=== PATIENT | female | born 1940 | race Caucasian/White ===

== ENCOUNTER 2016-05-22 20:39 | Emergency (ER) | payer MEDICARE, BC ==
[2016-05-22] MEDS ORDERED: Sodium Chloride 0.9% 1,000 ML IV SCH (21:15)
[2016-05-22 22:39] VITALS: BP 143/70
--- NOTE | 2016-05-22 23:26 | EDM.PDOC ---
ED HPI GENERAL MEDICAL PROBLEM - General Chief Complaint: Gastrointestinal Problem Stated Complaint: FLU Time Seen by Provider: 05/22/16 21:05 Source of Information: Reports: Patient History Limitations: Reports: No limitations - History of Present Illness INITIAL COMMENTS - FREE TEXT/NARRATIVE: History of present illness: [75-year-old female is presenting with acute onset of vertigo last 24 hours. It seems that when she tips her head back as when it's at its worst. She is still nauseated with it but no vomiting. She does have a little bit of a headache with this as well. She's had this before and apparently has instructions in exercises at home but she supposed to do to help prevent this from happening. She's had no fevers or chills no visual disturbances no cough or cold symptoms no ear symptoms.] Review of systems: As per history of present illness and below otherwise all systems reviewed and negative. Past medical history: As per history of present illness and as reviewed below otherwise noncontributory. Surgical history: As per history of present illness and as reviewed below otherwise noncontributory. Social history: No reported history of drug or alcohol abuse. Family history: As per history of present illness and as reviewed below otherwise noncontributory. Physical exam: HEENT: Atraumatic, normocephalic, pupils reactive, negative for conjunctival pallor or scleral icterus, mucous membranes moist, throat clear, neck supple, nontender, trachea midline. TMs are clear Lungs: Clear to auscultation, breath sounds equal bilaterally, chest nontender. Heart: S1S2, regular, negative for clicks, rubs, or JVD. Abdomen: Soft, nondistended, nontender. Negative for masses or hepatosplenomegaly. Negative for costovertebral tenderness. Pelvis: Stable nontender. Genitourinary: Deferred. Rectal: Deferred. Extremities: Atraumatic, negative for cords or calf pain. Neurovascular unremarkable. Neuro: Awake, alert, oriented. Cranial nerves II through XII unremarkable. Cerebellum unremarkable. Motor and sensory unremarkable throughout. Exam nonfocal. Diagnostics: [CBC complete metabolic panel head CT d-dimer troponin and EKG were all done and were nondiagnostic head CT was negative.] Therapeutics: [She received IV fluids and I gave her Valium 5 mg IV as well and she did well with this. We were able to get her up and ambulate her in the room with minimal assistance and she stated that she was feeling better and wanted to go home.] Impression: [Benign positional vertigo] Plan: [She will follow up here as needed and she will try her exercises at home for dislodging the precipitants] Definitive disposition and diagnosis as appropriate pending reevaluation and review of above. - Related Data Allergies Allergy/AdvReac Type Severity Reaction Status Date / Time acetaminophen Allergy Nausea and Verified 12/08/12 13:46 [From Darvocet-N 100] Vomiting erythromycin base Allergy Rash Verified 12/08/12 13:46 [Erythromycin Base] naproxen Allergy Rash Verified 12/08/12 13:46 oxycodone [Oxycodone] Allergy Nausea and Verified 12/08/12 13:46 Vomiting propoxyphene napsylate Allergy Nausea and Verified 12/08/12 13:46 [From Darvocet-N 100] Vomiting Home Meds: Home Meds *[id number] Vitamin D 200 1 tab PO DAILY 12/08/12 [History] Alendronate Sodium [Alendronate] 70 mg PO Q7D 12/08/12 [History] Aspirin [Adult Low Dose Aspirin EC] 81 mg PO DAILY 12/08/12 [History] Fluticasone Propionate [Flonase] 2 spray INH DAILY 12/08/12 [History] Folic Acid 0.4 mg PO DAILY 12/08/12 [History] Metoprolol Tartrate [Lopressor] 50 mg PO BID 12/08/12 [History] Multivitamin [Multivitamins] 1 each PO DAILY 12/08/12 [History] Past Medical History HEENT History: Reports: Impaired vision 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: Reports: Hypertension 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: Musculoskeletal History: Reports: Arthritis Neurological History: Reports: Migraines, TIA, Vertigo - Infectious Disease History Infectious Disease History: Reports: Chicken pox, Measles, Mumps - Past Surgical History GI Surgical History: Reports: Cholecystectomy Social & Family History - Tobacco Use Smoking Status *Q: Never Smoker Second Hand Smoke Exposure: No - Caffeine Use Caffeine Use: Reports: Tea - Alcohol Use Days Per Week of Alcohol Use: 0 - Recreational Drug Use Recreational Drug Use: No ED ROS GENERAL - Review of Systems Review Of Systems: ROS reveals no pertinent complaints other than HPI. ED EXAM, GENERAL - Physical Exam Exam: See Below Course - Vital Signs Last Recorded V/S: Last Vital Signs Temp 35.9 C 05/22/16 21:02 Pulse 65 05/22/16 22:34 Resp 20 05/22/16 22:34 BP 143/70 H 05/22/16 22:34 Pulse Ox 92 L 05/22/16 22:34 - Orders/Labs/Meds Orders: Active Orders 24 hr Category Date Time Status EKG Documentation Completion [RC] ASDIRECTED Care 05/22/16 21:14 Active Head wo Cont [CT] Stat Exams 05/22/16 21:15 Taken UA W/MICROSCOPIC [URIN] Stat Lab 05/22/16 21:13 Uncollected Sodium Chloride 0.9% [Normal Saline] 1,000 ml Med 05/22/16 21:15 Active IV ASDIRECTED EKG 12 Lead [EK] Stat Ther 05/22/16 21:13 Ordered Medication Orders Sodium Chloride (Normal Saline) 1,000 mls @ 999 mls/hr IV ASDIRECTED CONRADO Last Admin: 05/22/16 21:41 Dose: 250 mls/hr Labs: Laboratory Tests 05/22/16 05/22/16 05/22/16 Range/Units 21:13 21:13 21:13 WBC 9.5 (4.5-11.0) K/uL RBC 4.68 (3.30-5.50) M/uL Hgb 13.7 (12.0-15.0) g/dL Hct 41.3 (36.0-48.0) % MCV 88 (80-98) fL MCH 29 (27-31) pg MCHC 33 (32-36) % Plt Count 222 (150-400) K/uL Neut % (Auto) 82 H (36-66) % Lymph % (Auto) 12 L (24-44) % [place] % (Auto) 5 (2-6) % Eos % (Auto) 0 L (2-4) % Baso % (Auto) 0 (0-1) % D-Dimer, Quantitative < 100 (0.0-400.0) ng/mL Sodium 142 (140-148) mmol/L Potassium 4.1 (3.6-5.2) mmol/L Chloride 104 (100-108) mmol/L Carbon Dioxide 29 (21-32) mmol/L Anion Gap 9.3 (5.0-14.0) mmol/L BUN 23 H (7-18) mg/dL Creatinine 1.1 H (0.6-1.0) mg/dL Est Cr Clr Drug Dosing 34.41 mL/min Estimated GFR (MDRD) 48 L (>60) Glucose 115 H (74-106) mg/dL Calcium 9.4 (8.5-10.1) mg/dL Total Bilirubin 0.4 (0.2-1.0) mg/dL AST 25 (15-37) U/L ALT 28 (12-78) U/L Alkaline Phosphatase 88 (46-116) U/L Troponin I < 0.017 (0.000-0.056) ng/mL Total Protein 7.3 (6.4-8.2) g/dL Albumin 3.6 (3.4-5.0) g/dL Globulin 3.7 H (2.3-3.5) g/dL Albumin/Globulin Ratio 1.0 L (1.2-2.2) TSH, Ultra Sensitive 1.967 (0.358-3.740) uIU/mL Meds: Medications Generic Name Dose Route Start Last Admin Trade Name Freq PRN Reason Stop Dose Admin Sodium Chloride 1,000 mls @ 999 mls/hr 05/22/16 21:15 05/22/16 21:41 Normal Saline IV 250 mls/hr ASDIRECTED CONRADO Administration Discontinued Medications Generic Name Dose Route Start Last Admin Trade Name Freq PRN Reason Stop Dose Admin Diazepam 5 mg 05/22/16 21:43 05/22/16 22:04 Valium IVPUSH 05/22/16 21:44 5 mg ONETIME ONE Administration Departure - Departure Time of Disposition: 23:25 Disposition: Home, Self-Care 01 Condition: fair Clinical Impression: Other peripheral vertigo, unspecified ear Forms: ED Department Discharge Additional Instructions: Please try the exercises that were given to you for her dealing with this problem and if you are not improving follow up with your primary care doctor - My Orders Last 24 Hours: My Active Orders 05/22/16 21:13 UA W/MICROSCOPIC [URIN] Stat EKG 12 Lead [EK] Stat 05/22/16 21:14 EKG Documentation Completion [RC] ASDIRECTED 05/22/16 21:15 Head wo Cont [CT] Stat Sodium Chloride 0.9% [Normal Saline] 1,000 ml IV ASDIRECTED - Assessment/Plan Last 24 Hours: My Active Orders 05/22/16 21:13 UA W/MICROSCOPIC [URIN] Stat EKG 12 Lead [EK] Stat 05/22/16 21:14 EKG Documentation Completion [RC] ASDIRECTED 05/22/16 21:15 Head wo Cont [CT] Stat Sodium Chloride 0.9% [Normal Saline] 1,000 ml IV ASDIRECTED
== END 2016-05-22 23:55 | disposition home or self-care (01) ==
LOC: JP.ED 20:39
DX: H81.399 Other peripheral vertigo, unspecified ear (principal); I10 Essential (primary) hypertension; Z86.73 Personal history of transient ischemic attack (TIA), and cerebral infarction without residual deficits; Z90.49 Acquired absence of other specified parts of digestive tract; Z79.82 Long term (current) use of aspirin; Z79.899 Other long term (current) drug therapy; Z88.1 Allergy status to other antibiotic agents; Z88.5 Allergy status to narcotic agent; Z88.8 Allergy status to other drugs, medicaments and biological substances
CPT/HCPCS: 36415; 70450; 80053; 81001; 84443; 84484; 85025; 85379; 93005; 96361; 96374; 99284; J3360; J7040; 93010

== ENCOUNTER 2020-05-19 13:21 | Inpatient (IN) | payer MEDICARE, BC ==
[2020-05-19] MEDS ORDERED: Ondansetron 4 MG/2 ML SDV IVPUSH ONE (15:27)
[2020-05-19] MEDS ORDERED: fentaNYL 100 MCG/2 ML SDV IVPUSH ONE (15:27)
[2020-05-19] MEDS ORDERED: Lactated Ringers 1,000 ML IV SCH (15:30)
--- NOTE | 2020-05-19 15:32 | EDM.PDOC ---
ED HPI GENERAL MEDICAL PROBLEM - General Chief Complaint: General Stated Complaint: GENERAL UNWELL FEELING, EXCESSIVE THIRST Time Seen by Provider: 05/19/20 15:11 Source of Information: Reports: Patient, RN Notes Reviewed History Limitations: Reports: No Limitations - History of Present Illness INITIAL COMMENTS - FREE TEXT/NARRATIVE: 79-year-old female presents emergency department a complaint of abdominal pain she states been ill for the last couple of days progressively getting worse has chills she denies any fevers does have some nausea vomiting as well as diarrhea complains of abdominal bloating Abdomen Pain Score (Numeric/FACES): 6 - Related Data Allergies Allergy/AdvReac Type Severity Reaction Status Date / Time acetaminophen Allergy Nausea and Verified 05/19/20 14:07 [From Darvocet-N 100] Vomiting erythromycin base Allergy Rash Verified 05/19/20 14:07 [Erythromycin Base] naproxen Allergy Rash Verified 05/19/20 14:07 oxycodone [Oxycodone] Allergy Nausea and Verified 05/19/20 14:07 Vomiting propoxyphene napsylate Allergy Nausea and Verified 05/19/20 14:07 [From Darvocet-N 100] Vomiting Home Meds: Home Meds *[id number] Vitamin D 200 1 tab PO DAILY 12/08/12 [History] Alendronate Sodium [Alendronate] 70 mg PO Q7D 12/08/12 [History] Aspirin [Adult Low Dose Aspirin EC] 81 mg PO DAILY 12/08/12 [History] Fluticasone Propionate [Flonase] 2 spray INH DAILY 12/08/12 [History] Folic Acid 0.4 mg PO DAILY 12/08/12 [History] Metoprolol Tartrate [Lopressor] 50 mg PO BID 12/08/12 [History] Multivitamin [Multivitamins] 1 each PO DAILY 12/08/12 [History] Past Medical History HEENT History: Reports: Impaired Vision 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: Reports: Hypertension 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 Denies: Fever HEENT: Reports: No Symptoms Respiratory: Reports: No Symptoms Cardiovascular: Reports: No Symptoms GI/Abdominal: Reports: Abdominal Pain, Diarrhea, Nausea, Vomiting : Reports: No Symptoms ED EXAM, GENERAL - Physical Exam Exam: See Below Exam Limited By: No Limitations General Appearance: Alert, Mild Distress Respiratory/Chest: No Respiratory Distress, Lungs Clear, Normal Breath Sounds, No Accessory Muscle Use, Chest Non-Tender Cardiovascular: Regular Rate, Rhythm, No Murmur GI/Abdominal: Soft, Tender (Generalized tenderness), Abnormal Bowel Sounds Course - Vital Signs Last Recorded V/S: Last Vital Signs Temp 100.0 F 05/19/20 16:03 Pulse 97 05/19/20 17:00 Resp 20 05/19/20 17:00 BP 157/49 H 05/19/20 17:00 Pulse Ox 96 05/19/20 17:00 - Orders/Labs/Meds Orders: Active Orders 24 hr Category Date Time Status Blood Pressure Mgt: Sepsis [RC] Q15MX2 Care 05/19/20 15:18 Active Chest 1V Frontal [CR] Stat Exams 05/19/20 15:16 Taken CULTURE BLOOD [BC] Urgent Lab 05/19/20 15:25 Received CULTURE BLOOD [BC] Urgent Lab 05/19/20 15:30 Received CULTURE STOOL + SHIGATOX [RM] Stat Lab 05/19/20 18:05 Ordered REFLEX LACTIC ACID YES OR NO [CHEM] Routine Lab 05/19/20 16:01 Received WBC, STOOL [OP] Stat Lab 05/19/20 18:05 Ordered Lactated Ringers [Ringers, Lactated] 1,000 ml Med 05/19/20 15:30 Active IV ASDIRECTED Piperacillin/Tazobactam [Zosyn] 4.5 gm Med 05/19/20 15:30 Active Sodium Chloride 0.9% [Normal Saline] 100 ml IV Q6H Blood Culture x2 Reflex Set [OM.PC] Urgent Oth 05/19/20 15:16 Ordered Severe Sepsis Onset Time [OM.PC] Stat Oth 05/19/20 15:16 Ordered Medication Orders Lactated Ringer's (Ringers, Lactated) 1,000 mls @ 999 mls/hr IV ASDIRECTED CONRADO Last Admin: 05/19/20 15:41 Dose: 999 mls/hr Documented by: PREILOR Piperacillin Sod/Tazobactam (Sod 4.5 gm/ Sodium Chloride) 100 mls @ 100 mls/hr IV Q6H [facility] Last Admin: 05/19/20 15:42 Dose: 100 mls/hr Documented by: PREILOR Labs: Laboratory Tests 05/19/20 05/19/20 05/19/20 Range/Units 15:16 15:19 15:33 WBC 18.4 H (4.5-11.0) K/uL RBC 5.04 (3.30-5.50) M/uL Hgb 14.5 (12.0-15.0) g/dL Hct 44.6 (36.0-48.0) % MCV 89 (80-98) fL MCH 29 (27-31) pg MCHC 33 (32-36) % Plt Count 207 (150-400) K/uL Neut % (Auto) 90 H (36-66) % Lymph % (Auto) 2 L (24-44) % [place] % (Auto) 8 H (2-6) % Eos % (Auto) 0 L (2-4) % Baso % (Auto) 0 (0-1) % Sodium 139 L (140-148) mmol/L Potassium 4.0 (3.6-5.2) mmol/L Chloride 99 L (100-108) mmol/L Carbon Dioxide 27 (21-32) mmol/L Anion Gap 17.0 H (5.0-14.0) mmol/L BUN 20 H (7-18) mg/dL Creatinine 1.2 H (0.6-1.0) mg/dL Est Cr Clr Drug Dosing 30.93 mL/min Estimated GFR (MDRD) 43 L (>60) Glucose 108 H (74-106) mg/dL Lactic Acid (0.4-2.0) mmol/L Calcium 9.2 (8.5-10.1) mg/dL Total Bilirubin 0.7 D (0.2-1.0) mg/dL AST 24 (15-37) U/L ALT 25 (12-78) U/L Alkaline Phosphatase 98 (46-116) U/L Troponin I < 0.017 (0.000-0.056) ng/mL C-Reactive Protein 1.62 H (0.0-0.3) mg/dL Total Protein 7.4 (6.4-8.2) g/dL Albumin 3.7 (3.4-5.0) g/dL Globulin 3.7 H (2.3-3.5) g/dL Albumin/Globulin Ratio 1.0 L (1.2-2.2) Lipase 57 L (73-393) U/L Procalcitonin ng/mL Urine Color (YELLOW) Urine Appearance (CLEAR) Urine pH (5.0-8.0) Ur Specific [place] (1.008-1.030) Urine Protein (NEGATIVE) mg/dL Urine Glucose (UA) (NEGATIVE) mg/dL Urine Ketones (NEGATIVE) mg/dL Urine Occult Blood (NEGATIVE) Urine Nitrite (NEGATIVE) Urine Bilirubin (NEGATIVE) Urine Urobilinogen (0.2-1.0) EU/dL Ur Leukocyte Esterase (NEGATIVE) Urine RBC (0-5) Urine WBC (0-5) Ur Epithelial Cells Amorphous Sediment Urine Bacteria Urine Mucus Influenza Type A RNA Negative (NEGATIVE) RSV RNA (INAAT) Negative (NEGATIVE) Influenza Type B RNA Negative (NEGATIVE) SARS-CoV-2 RNA (TONY) Negative (NEGATIVE) 05/19/20 05/19/20 05/19/20 Range/Units 15:33 16:07 17:37 WBC (4.5-11.0) K/uL RBC (3.30-5.50) M/uL Hgb (12.0-15.0) g/dL Hct (36.0-48.0) % MCV (80-98) fL MCH (27-31) pg MCHC (32-36) % Plt Count (150-400) K/uL Neut % (Auto) (36-66) % Lymph % (Auto) (24-44) % [place] % (Auto) (2-6) % Eos % (Auto) (2-4) % Baso % (Auto) (0-1) % Sodium (140-148) mmol/L Potassium (3.6-5.2) mmol/L Chloride (100-108) mmol/L Carbon Dioxide (21-32) mmol/L Anion Gap (5.0-14.0) mmol/L BUN (7-18) mg/dL Creatinine (0.6-1.0) mg/dL Est Cr Clr Drug Dosing mL/min Estimated GFR (MDRD) (>60) Glucose (74-106) mg/dL Lactic Acid 2.2 H (0.4-2.0) mmol/L Calcium (8.5-10.1) mg/dL Total Bilirubin (0.2-1.0) mg/dL AST (15-37) U/L ALT (12-78) U/L Alkaline Phosphatase (46-116) U/L Troponin I (0.000-0.056) ng/mL C-Reactive Protein (0.0-0.3) mg/dL Total Protein (6.4-8.2) g/dL Albumin (3.4-5.0) g/dL Globulin (2.3-3.5) g/dL Albumin/Globulin Ratio (1.2-2.2) Lipase (73-393) U/L Procalcitonin 0.20 ng/mL Urine Color Yellow (YELLOW) Urine Appearance Clear (CLEAR) Urine pH 8.5 H (5.0-8.0) Ur Specific [place] 1.020 (1.008-1.030) Urine Protein Negative (NEGATIVE) mg/dL Urine Glucose (UA) Negative (NEGATIVE) mg/dL Urine Ketones Negative (NEGATIVE) mg/dL Urine Occult Blood Moderate H (NEGATIVE) Urine Nitrite Negative (NEGATIVE) Urine Bilirubin Negative (NEGATIVE) Urine Urobilinogen 0.2 (0.2-1.0) EU/dL Ur Leukocyte Esterase Negative (NEGATIVE) Urine RBC 20-30 H (0-5) Urine WBC 0-5 (0-5) Ur Epithelial Cells Rare Amorphous Sediment Not seen Urine Bacteria Few Urine Mucus Not seen Influenza Type A RNA (NEGATIVE) RSV RNA (INAAT) (NEGATIVE) Influenza Type B RNA (NEGATIVE) SARS-CoV-2 RNA (TONY) (NEGATIVE) Meds: Medications Generic Name Dose Route Start Last Admin Trade Name Freq PRN Reason Stop Dose Admin Lactated Ringer's 1,000 mls @ 999 mls/hr 05/19/20 15:30 05/19/20 15:41 Ringers, Lactated IV 999 mls/hr ASDIRECTED CONRADO Administration Piperacillin Sod/Tazobactam 100 mls @ 100 mls/hr 05/19/20 15:30 05/19/20 15:42 Sod 4.5 gm/ Sodium Chloride IV 100 mls/hr Q6H CONRADO Administration Discontinued Medications Generic Name Dose Route Start Last Admin Trade Name Gareth PRN Reason Stop Dose Admin Fentanyl 50 mcg 05/19/20 15:27 05/19/20 15:47 Fentanyl 100 Mcg/2 Ml Sdv IVPUSH 05/19/20 15:28 50 mcg ONETIME ONE Administration Lorazepam 0.5 mg 05/19/20 17:15 05/19/20 17:26 Lorazepam 2 Mg/Ml Sdv IVPUSH 05/19/20 17:16 0.5 mg ONETIME ONE Administration Ondansetron HCl 4 mg 05/19/20 15:27 05/19/20 15:47 Ondansetron 4 Mg/2 Ml Sdv IVPUSH 05/19/20 15:28 4 mg ONETIME ONE Administration Departure - Departure Time of Disposition: 18:13 Disposition: Admitted As Inpatient 65 Condition: Fair Clinical Impression: SIRS (systemic inflammatory response syndrome) Diarrhea Qualifiers: Diarrhea type: presumed infectious Qualified Code(s): R19.7 - Diarrhea, unspecified - Discharge Information Referrals: Ga Allison MD [Primary Care Provider] - Forms: ED Department Discharge Sepsis Event Note (ED) - Evaluation Sepsis Screening Result: Possible Sepsis Risk - Focused Exam Vital Signs: Vital Signs Temp Pulse Resp BP Pulse Ox 05/19/20 17:00 97 20 157/49 H 96 05/19/20 16:03 100.0 F 87 18 135/47 L 97 05/19/20 15:00 101.2 F H 87 20 160/60 H 95 05/19/20 14:10 96.0 F L 74 24 H 154/56 H 96 05/19/20 14:04 96.0 F L 74 24 H 154/56 H 96 - My Orders Last 24 Hours: My Active Orders 05/19/20 15:16 Chest 1V Frontal [CR] Stat Blood Culture x2 Reflex Set [OM.PC] Urgent Severe Sepsis Onset Time [OM.PC] Stat 05/19/20 15:18 Blood Pressure Mgt: Sepsis [RC] Q15MX2 05/19/20 15:25 CULTURE BLOOD [BC] Urgent 05/19/20 15:30 CULTURE BLOOD [BC] Urgent Lactated Ringers [Ringers, Lactated] 1,000 ml IV ASDIRECTED Piperacillin/Tazobactam [Zosyn] 4.5 gm Sodium Chloride 0.9% [Normal Saline] 100 ml IV Q6H 05/19/20 16:01 REFLEX LACTIC ACID YES OR NO [CHEM] Routine 05/19/20 18:05 CULTURE STOOL + SHIGATOX [RM] Stat WBC, STOOL [OP] Stat - Assessment/Plan Last 24 Hours: My Active Orders 05/19/20 15:16 Chest 1V Frontal [CR] Stat Blood Culture x2 Reflex Set [OM.PC] Urgent Severe Sepsis Onset Time [OM.PC] Stat 05/19/20 15:18 Blood Pressure Mgt: Sepsis [RC] Q15MX2 05/19/20 15:25 CULTURE BLOOD [BC] Urgent 05/19/20 15:30 CULTURE BLOOD [BC] Urgent Lactated Ringers [Ringers, Lactated] 1,000 ml IV ASDIRECTED Piperacillin/Tazobactam [Zosyn] 4.5 gm Sodium Chloride 0.9% [Normal Saline] 100 ml IV Q6H 05/19/20 16:01 REFLEX LACTIC ACID YES OR NO [CHEM] Routine 05/19/20 18:05 CULTURE STOOL + SHIGATOX [RM] Stat WBC, STOOL [OP] Stat Plan: Assessment Acuity = acute Site and laterality = concern for sepsis unidentified source Etiology = possibly related to diarrhea and an enteritis Manifestations = chills, rigors Location of injury = Home Lab values = WBC elevated 18.9 consistent leukocytosis creatinine elevated 1.2 consistent with acute renal failure stage G3 B lactic acid slightly elevated 2.2 consistent with lactic acidosis troponin is negative CRP elevated 1.62 procalcitonin normal 0.2 urinalysis unremarkable Covid was negative Plan Call discussed case hospitalist on-call at 1800 kindly agreed to come evaluate patient emergency department for admission This note was dictated using [employer] voice recognition software please call with any questions on syntax or grammar.
[2020-05-19] MEDS: Piperacillin/Tazobactam 4.5 GM in Sodium Chloride 0.9% 100 ML IV SCH ×2 (15:42→21:32)
[2020-05-19 16:17] LABS: CORONAVIRUS COVID-19 NAA NEGATIVE (NEGATIVE)
--- NOTE | 2020-05-19 16:56 | CRLCT ---
Indication: Abdominal pain. Distention. Technique: Multiple contiguous axial images were obtained from the lung bases through the symphysis pubis without intravenous contrast enhancement. Please note that all CT scans at this facility use dose modulation, iterative reconstruction, and/or weight-based dosing when appropriate to reduce radiation dose to as low as reasonably achievable. Comparison: None Findings: Bibasilar atelectasis is identified. The heart is normal in size. A small pericardial effusion is identified. The unenhanced liver, spleen, pancreas, adrenals, and kidneys are normal. No intrahepatic biliary ductal dilatation is identified. No hydronephrosis is identified. Postsurgical changes of cholecystectomy are identified. In the pelvis, the urinary bladder is normal. No uterus is identified. The small and large bowel are normal in caliber. Mild colonic diverticulosis is identified. In the left lower quadrant, a peripherally calcified nodule is identified. The exact etiology of this is uncertain, but is felt to be benign. This is best seen on image number 101 and measures approximately 1.2 cm in size. The aorta is normal in caliber. No free air or free fluid is identified within the abdomen or pelvis. A trace fat containing umbilical hernia is identified. Osteopenia is identified. Vacuum disc phenomenon is identified at L4-5 and L5-S1. Compression of L2 is identified. Facet joint arthropathy is identified. Impression: No acute findings of the abdomen or pelvis. Please note that all CT scans at this facility use dose modulation, iterative reconstruction, and/or weight-based dosing when appropriate to reduce radiation dose to as low as reasonably achievable. Dictated by Zita Wesley MD @ May 19 2020 4:44PM Signed by Dr. Zita Wesley @ May 19 2020 4:54PM
[2020-05-19] MEDS ORDERED: LORazepam 2 MG/ML SDV IVPUSH ONE (17:15)
[2020-05-19] MEDS ORDERED: HYDROmorphone 1 MG/ML Syringe IVPUSH ONE (18:35)
[2020-05-19] MEDS ORDERED: Acetaminophen 1,000 MG in Premix Bag 1 BAG IV ONE (18:44)
--- NOTE | 2020-05-19 19:07 | PCM.HP.2 ---
H&P History of Present Illness - General Date of Service: 05/19/20 Admit Problem/Dx: Admission Diagnosis/Problem Admission Diagnosis/Problem SIRS due to infectious process without acute organ dysfunction Source of Information: Patient History Limitations: Reports: No Limitations - History of Present Illness Initial Comments - Free Text/Narative: chief complaint: abdominal pain This is a 79 year old female presents to the ER with her Sid, reports has been sick since last . General sense of not feeling well, abdominal pain, watery diarrhea, fever, chills and muscle aches. last meal this morning ate a few peaches. Onset of Symptoms: Reports: Gradual Symptom Onset Date: 05/17/20 Duration of Symptoms: Reports: Getting Worse Location: Reports: Abdomen, Generalized (body aches, fever, chills) Quality: Reports: Other (reports just doesn't feel well, abdomen painful.) Severity: Moderate Improves with: Reports: None Worsens with: Reports: None Associated Symptoms: Reports: Fever/Chills, Loss of Appetite, Malaise, Nausea/Vomiting, Weakness Abdomen Pain Score (Numeric/FACES): 6 - Related Data Allergies/Adverse Reactions: Allergies Allergy/AdvReac Type Severity Reaction Status Date / Time acetaminophen Allergy Nausea and Verified 05/19/20 14:07 [From Darvocet-N 100] Vomiting erythromycin base Allergy Rash Verified 05/19/20 14:07 [Erythromycin Base] naproxen Allergy Rash Verified 05/19/20 14:07 oxycodone [Oxycodone] Allergy Nausea and Verified 05/19/20 14:07 Vomiting propoxyphene napsylate Allergy Nausea and Verified 05/19/20 14:07 [From Darvocet-N 100] Vomiting Home Medications: Home Meds *[id number] Vitamin D 200 1 tab PO DAILY 12/08/12 [History] Alendronate Sodium [Alendronate] 70 mg PO Q7D 12/08/12 [History] Aspirin [Adult Low Dose Aspirin EC] 81 mg PO DAILY 12/08/12 [History] Fluticasone Propionate [Flonase] 2 spray INH DAILY 12/08/12 [History] Folic Acid 0.4 mg PO DAILY 12/08/12 [History] Metoprolol Tartrate [Lopressor] 50 mg PO BID 12/08/12 [History] Multivitamin [Multivitamins] 1 each PO DAILY 12/08/12 [History] Past Medical History HEENT History: Reports: Impaired Vision 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: Reports: Hypertension [employer] RE[employer]ER History: Reports: Musculoskeletal History: Reports: Arthritis Neurological History: Reports: Migraines, TIA, Vertigo - Infectious Disease History Infectious Disease History: Reports: Chicken Pox, Measles, Mumps - Past Surgical History GI Surgical History: Reports: Cholecystectomy Social & Family History - Tobacco Use Tobacco Use Status *Q: Never Tobacco User - Caffeine Use Caffeine Use: Reports: Tea - Living Situation & Occupation Living situation: Reports: , with Family Occupation: Retired (lives with Sid in [place], [place]. has two children.) H&P Review of Systems - Review of Systems: Review Of Systems: See Below General: Reports: Fever, Chills, Malaise, Weakness, Fatigue, Decreased Appetite, Other (reports just not feeling well for the past three days) HEENT: Reports: Glasses, Other (natural teeth.) Pulmonary: Reports: No Symptoms Cardiovascular: Reports: No Symptoms Gastrointestinal: Reports: Abdominal Pain, Diarrhea (watery diarrhea), Decreased Appetite, Nausea Genitourinary: Reports: No Symptoms Musculoskeletal: Reports: Muscle Pain, Muscle Stiffness Skin: Reports: Erythema (right lower leg and foot noted on exam-reports didn't know her leg was red. denies pain) Psychiatric: Reports: No Symptoms Neurological: Reports: No Symptoms Hematologic/Lymphatic: Reports: No Symptoms Immunologic: Reports: No Symptoms Exam - Exam Exam: See Below - Vital Signs Vital Signs: Last Vital Signs Temp 100.0 F 05/19/20 16:03 Pulse 97 05/19/20 17:00 Resp 20 05/19/20 17:00 BP 157/49 H 05/19/20 17:00 Pulse Ox 96 05/19/20 17:00 Weight: 186 lb - Exam General: Alert, Oriented, Cooperative, Moderate Distress (face flushed, shaking chills noted. skin is very warm) HEENT: PERRLA, Conjunctiva Clear, EACs Clear, EOMI, Hearing Intact, Mucosa Moist & Mentor, Nares Patent, Normal Nasal Septum, Posterior Pharynx Clear, Pupils Equal, Pupils Reactive, TMs Clear, Glasses Neck: Supple, Trachea Midline, Full Range of Motion Lungs: Clear to Auscultation, Normal Respiratory Effort Cardiovascular: Regular Rate, Regular Rhythm, Normal S1, Normal S2 GI/Abdominal Exam: Normal Bowel Sounds, Soft, No Organomegaly, No Distention, No Mass, Tender (generalized tenderness without rebound) (Female) Exam: Deferred Rectal (Female) Exam: Deferred Back Exam: Normal Inspection, Full Range of Motion Extremities: Normal Range of Motion, Non-Tender, No Pedal Edema, Normal Capillary Refill, Increased Warmth (right lower leg and upper foot), Other (redness noted to the right lower leg and right foot. area marked with pen.). No: Drew's Sign, Leg Pain Skin: Warm, Dry, Other (right lower leg with redness) Neurological: Reflexes Equal Bilateral, Strength Equal Bilateral, Normal Speech, Normal Tone Neuro Extensive - Mental Status: Alert, Oriented x3, Normal Mood/Affect, Normal Cognition, Memory Intact Neuro Extensive - Motor, Sensory, Reflexes: CN II-XII Intact, Normal Gait, Normal Reflexes Psychiatric: Alert, Normal Affect, Normal Mood - Patient Data Lab Results Last 24 hrs: Laboratory Results - last 24 hr 05/19/20 05/19/20 05/19/20 Range/Units 15:16 15:19 15:33 WBC 18.4 H (4.5-11.0) K/uL RBC 5.04 (3.30-5.50) M/uL Hgb 14.5 (12.0-15.0) g/dL Hct 44.6 (36.0-48.0) % MCV 89 (80-98) fL MCH 29 (27-31) pg MCHC 33 (32-36) % Plt Count 207 (150-400) K/uL Neut % (Auto) 90 H (36-66) % Lymph % (Auto) 2 L (24-44) % Maverick % (Auto) 8 H (2-6) % Eos % (Auto) 0 L (2-4) % Baso % (Auto) 0 (0-1) % Sodium 139 L (140-148) mmol/L Potassium 4.0 (3.6-5.2) mmol/L Chloride 99 L (100-108) mmol/L Carbon Dioxide 27 (21-32) mmol/L Anion Gap 17.0 H (5.0-14.0) mmol/L BUN 20 H (7-18) mg/dL Creatinine 1.2 H (0.6-1.0) mg/dL Est Cr Clr Drug Dosing 30.93 mL/min Estimated GFR (MDRD) 43 L (>60) Glucose 108 H (74-106) mg/dL Lactic Acid (0.4-2.0) mmol/L Calcium 9.2 (8.5-10.1) mg/dL Total Bilirubin 0.7 D (0.2-1.0) mg/dL AST 24 (15-37) U/L ALT 25 (12-78) U/L Alkaline Phosphatase 98 (46-116) U/L Troponin I < 0.017 (0.000-0.056) ng/mL C-Reactive Protein 1.62 H (0.0-0.3) mg/dL Total Protein 7.4 (6.4-8.2) g/dL Albumin 3.7 (3.4-5.0) g/dL Globulin 3.7 H (2.3-3.5) g/dL Albumin/Globulin Ratio 1.0 L (1.2-2.2) Lipase 57 L (73-393) U/L Procalcitonin ng/mL Urine Color (YELLOW) Urine Appearance (CLEAR) Urine pH (5.0-8.0) Ur Specific Weatherby (1.008-1.030) Urine Protein (NEGATIVE) mg/dL Urine Glucose (UA) (NEGATIVE) mg/dL Urine Ketones (NEGATIVE) mg/dL Urine Occult Blood (NEGATIVE) Urine Nitrite (NEGATIVE) Urine Bilirubin (NEGATIVE) Urine Urobilinogen (0.2-1.0) EU/dL Ur Leukocyte Esterase (NEGATIVE) Urine RBC (0-5) Urine WBC (0-5) Ur Epithelial Cells Amorphous Sediment Urine Bacteria Urine Mucus Influenza Type A RNA Negative (NEGATIVE) RSV RNA (INAAT) Negative (NEGATIVE) Influenza Type B RNA Negative (NEGATIVE) SARS-CoV-2 RNA (TONY) Negative (NEGATIVE) 05/19/20 05/19/20 05/19/20 Range/Units 15:33 16:07 17:37 WBC (4.5-11.0) K/uL RBC (3.30-5.50) M/uL Hgb (12.0-15.0) g/dL Hct (36.0-48.0) % MCV (80-98) fL MCH (27-31) pg MCHC (32-36) % Plt Count (150-400) K/uL Neut % (Auto) (36-66) % Lymph % (Auto) (24-44) % Maverick % (Auto) (2-6) % Eos % (Auto) (2-4) % Baso % (Auto) (0-1) % Sodium (140-148) mmol/L Potassium (3.6-5.2) mmol/L Chloride (100-108) mmol/L Carbon Dioxide (21-32) mmol/L Anion Gap (5.0-14.0) mmol/L BUN (7-18) mg/dL Creatinine (0.6-1.0) mg/dL Est Cr Clr Drug Dosing mL/min Estimated GFR (MDRD) (>60) Glucose (74-106) mg/dL Lactic Acid 2.2 H (0.4-2.0) mmol/L Calcium (8.5-10.1) mg/dL Total Bilirubin (0.2-1.0) mg/dL AST (15-37) U/L ALT (12-78) U/L Alkaline Phosphatase (46-116) U/L Troponin I (0.000-0.056) ng/mL C-Reactive Protein (0.0-0.3) mg/dL Total Protein (6.4-8.2) g/dL Albumin (3.4-5.0) g/dL Globulin (2.3-3.5) g/dL Albumin/Globulin Ratio (1.2-2.2) Lipase (73-393) U/L Procalcitonin 0.20 ng/mL Urine Color Yellow (YELLOW) Urine Appearance Clear (CLEAR) Urine pH 8.5 H (5.0-8.0) Ur Specific Weatherby 1.020 (1.008-1.030) Urine Protein Negative (NEGATIVE) mg/dL Urine Glucose (UA) Negative (NEGATIVE) mg/dL Urine Ketones Negative (NEGATIVE) mg/dL Urine Occult Blood Moderate H (NEGATIVE) Urine Nitrite Negative (NEGATIVE) Urine Bilirubin Negative (NEGATIVE) Urine Urobilinogen 0.2 (0.2-1.0) EU/dL Ur Leukocyte Esterase Negative (NEGATIVE) Urine RBC 20-30 H (0-5) Urine WBC 0-5 (0-5) Ur Epithelial Cells Rare Amorphous Sediment Not seen Urine Bacteria Few Urine Mucus Not seen Influenza Type A RNA (NEGATIVE) RSV RNA (INAAT) (NEGATIVE) Influenza Type B RNA (NEGATIVE) SARS-CoV-2 RNA (TONY) (NEGATIVE) Result Diagrams: 05/19/20 15:16 05/19/20 15:33 Sepsis Event Note - Evaluation Sepsis Screening Result: Possible Sepsis Risk - Focused Exam Vital Signs: Vital Signs Temp Pulse Resp BP Pulse Ox 05/19/20 17:00 97 20 157/49 H 96 05/19/20 16:03 100.0 F 87 18 135/47 L 97 05/19/20 15:00 101.2 F H 87 20 160/60 H 95 05/19/20 14:10 96.0 F L 74 24 H 154/56 H 96 05/19/20 14:04 96.0 F L 74 24 H 154/56 H 96 - Problem List (1) SIRS (systemic inflammatory response syndrome) SNOMED Code(s): 491192072 ICD Code: R65.10 - SIRS OF NON-INFECTIOUS ORIGIN W/O ACUTE ORGAN DYSFUNCTION Status: Acute Priority: High Current Visit: Yes (2) Diarrhea SNOMED Code(s): 12655111 ICD Code: R19.7 - DIARRHEA, UNSPECIFIED Status: Acute Priority: High Current Visit: Yes Qualifiers: Diarrhea type: presumed infectious Qualified Code(s): R19.7 - Diarrhea, unspecified (3) Cellulitis and abscess of right lower extremity SNOMED Code(s): 610486571 ICD Code: L03.115 - CELLULITIS OF RIGHT LOWER LIMB; L02.415 - CUTANEOUS ABSCESS OF RIGHT LOWER LIMB Status: Acute Priority: High Current Visit: Yes Problem List Initiated/Reviewed/Updated: Yes Orders Last 24hrs: Active Orders 24 hr Category Date Time Status Patient Status Manage Transfer [TRANSFER] Routine ADT 05/19/20 18:51 Active Blood Pressure Mgt: Sepsis [RC] [id number] Care 05/19/20 15:18 Active Chest 1V Frontal [CR] Stat Exams 05/19/20 15:16 Taken CULTURE BLOOD [BC] Urgent Lab 05/19/20 15:25 Received CULTURE BLOOD [BC] Urgent Lab 05/19/20 15:30 Received CULTURE STOOL + SHIGATOX [RM] Stat Lab 05/19/20 18:05 Ordered REFLEX LACTIC ACID YES OR NO [CHEM] Routine Lab 05/19/20 16:01 Received WBC, STOOL [OP] Stat Lab 05/19/20 18:05 Ordered Lactated Ringers [Ringers, Lactated] 1,000 ml Med 05/19/20 15:30 Active IV ASDIRECTED Piperacillin/Tazobactam [Zosyn] 4.5 gm Med 05/19/20 15:30 Active Sodium Chloride 0.9% [Normal Saline] 100 ml IV Q6H Blood Culture x2 Reflex Set [OM.PC] Urgent Oth 05/19/20 15:16 Ordered Severe Sepsis Onset Time [OM.PC] Stat Oth 05/19/20 15:16 Ordered Resuscitation Status Routine Resus Stat 05/19/20 18:53 Ordered Medication Orders Lactated Ringer's (Ringers, Lactated) 1,000 mls @ 999 mls/hr IV ASDIRECTED [facility] Last Admin: 05/19/20 15:41 Dose: 999 mls/hr Documented by: PREILOR Piperacillin Sod/Tazobactam (Sod 4.5 gm/ Sodium Chloride) 100 mls @ 100 mls/hr IV Q6H [facility] Last Admin: 05/19/20 15:42 Dose: 100 mls/hr Documented by: PREILOR Assessment/Plan Comment:: ASSESSMENT AND PLAN OF CARE- SIRS, DIARRHEA PRESUMED INFECTIOUS, CELLULITIS RIGHT LOWER LEG This is 79 year old female present to the ER with her and Daughter, concern of not feeling well for the past 3 days. Daughter reports 4 days ago was picking up sticks and may of gotten a tick bite - not sure. Mrs. Meza reports was well until 3 days ago when she developed abdominal pain, watery diarrhea, fever today and muscle pain. ER work up = concern for sepsis unidentified source Lab values = WBC elevated 18.9 consistent leukocytosis creatinine elevated 1.2 consistent with acute renal failure stage G3 B lactic acid slightly elevated 2.2 consistent with lactic acidosis troponin is negative CRP elevated 1.62 procalcitonin normal 0.2 urinalysis unremarkable Covid was negative Plan Call discussed case hospitalist on-call at 1800 kindly agreed to come evaluate patient emergency department for admission SIRS, Diarrhea presumed infectious- -IV Cipro 400mg every 12 hours -IV Flagyl 500 mg ever 8 hours -IV fluids Normal Saline 125ml/hr -IV and po anti-nausea medication -IV and po pain medication -Tylenol give for fever and pain without any sign of adverse reaction -repeat Lactic Acid at 22:00 -Blood Cultures x2 pending -am lab CBC, BMP, CRP Cellulitis right lower leg- daughter reports she was picking up sticks a few days ago and june of gotten tick on her leg as the daughter had a tick on her. Area of redness was marked with pen, skin hot to touch, no pain noted or edema. negative drew's sign. -lab tickborne illness panel -add IV Rocephin 1 gram Maintenance issues - - DVT prophylaxis - SCD - GI prophylaxis -PPI - Nutrition -regular diet - De Souza catheter -not indicated -Spiritual consult CODE STATUS -full code Admission justification - this patient will be admitted for inpatient services and is medically appropriate meeting medical necessity for inpatient admission as outlined in my documentation. I reasonably expect the patient will require inpatient services that span a period time over 2 midnights. I reasonably expect this patient to be discharged or transferred within 96 hours [facility]. Disposition -I would anticipate discharge home after the hospital stay Primary care physician - Dr. Allison, [facility] Hospitalist- Patric Soto M.D. - Mortality Measure Prognosis:: Good - Mortality Measure Prognosis:: Good
[2020-05-19] MEDS ORDERED: Acetaminophen 325 MG Tab PO PRN (19:15)
[2020-05-19] MEDS ORDERED: Morphine 2 MG/ML SYRINGE IVPUSH PRN (19:15)
[2020-05-19] MEDS ORDERED: Melatonin 3 MG Tab PO PRN (19:15)
[2020-05-19] MEDS ORDERED: Docusate Sodium 100 MG Cap PO PRN (19:15)
[2020-05-19] MEDS ORDERED: Acetaminophen/HYDROcodone 325-5 MG Tab PO PRN (19:15)
[2020-05-19] MEDS ORDERED: diphenhydrAMINE 25 MG Cap PO PRN (19:15)
[2020-05-19] MEDS ORDERED: Albuterol 0.083% 2.5 MG/3 ML Neb Soln NEB PRN (19:15)
[2020-05-19] MEDS ORDERED: LORazepam 2 MG/ML SDV IV PRN (19:15)
[2020-05-19] MEDS ORDERED: Albuterol/Ipratropium 3.0-0.5 MG/3 ML Neb Soln NEB PRN (19:15)
[2020-05-19] MEDS ORDERED: Ondansetron 4 MG Tab.DIS PO PRN (19:15)
[2020-05-19] MEDS ORDERED: Ciprofloxacin in D5W 400 MG in Premix Bag 1 BAG IV SCH ×2 (19:30)
[2020-05-19] MEDS ORDERED: cefTRIAXone 1 GM in Sodium Chloride 0.9% 50 ML IV SCH (20:00)
[2020-05-19] MEDS: Sodium Chloride 0.9% 1,000 ML IV SCH (20:07)
[2020-05-19] MEDS: metroNIDAZOLE/Normal Saline 500 MG in Premix Bag 1 BAG IV SCH (20:26)
[2020-05-19] MEDS: Metoprolol Tartrate 50 MG Tab PO SCH (20:45)
[2020-05-20] MEDS: metroNIDAZOLE/Normal Saline 500 MG in Premix Bag 1 BAG IV SCH (03:41)
[2020-05-20] MEDS: Piperacillin/Tazobactam 4.5 GM in Sodium Chloride 0.9% 100 ML IV SCH (04:42)
[2020-05-20] MEDS: Sodium Chloride 0.9% 1,000 ML IV SCH ×2 (07:57→18:19)
[2020-05-20] MEDS: Folic Acid 1 MG Tab PO SCH (09:33)
--- NOTE | 2020-05-20 10:22 | PCM.PN ---
- General Info Date of Service: 05/20/20 Subjective Update: There were no acute events overnight. She has not had a recurrence of her fever since the emergency room. Abdominal pain and diarrhea have resolved. She has s ome tingly sensations and mild pain in the right foot and ankle. Tolerating antibiotics. White blood cell count is better. No nausea. Feels weak and tired but a little better than yesterday. Functional Status: Reports: Pain Controlled, Tolerating Diet - Review of Systems General: Reports: Weakness Musculoskeletal: Reports: Leg Pain - Patient Data Vitals - Most Recent: Last Vital Signs Temp 36.7 C 05/20/20 07:45 Pulse 73 05/20/20 07:45 Resp 16 05/20/20 07:45 BP 106/48 L 05/20/20 07:45 Pulse Ox 95 05/20/20 07:45 Weight - Most Recent: 87.09 kg I&O - Last 24 Hours: Intake & Output 05/19/20 05/20/20 05/20/20 22:59 06:59 14:59 Intake Total 450 950 400 Output Total 500 300 Balance -50 650 400 Lab Results Last 24 Hours: Laboratory Results - last 24 hr 05/19/20 05/19/20 05/19/20 Range/Units 15:16 15:19 15:33 WBC 18.4 H (4.5-11.0) K/uL RBC 5.04 (3.30-5.50) M/uL Hgb 14.5 (12.0-15.0) g/dL Hct 44.6 (36.0-48.0) % MCV 89 (80-98) fL MCH 29 (27-31) pg MCHC 33 (32-36) % Plt Count 207 (150-400) K/uL Neut % (Auto) 90 H (36-66) % Lymph % (Auto) 2 L (24-44) % [place] % (Auto) 8 H (2-6) % Eos % (Auto) 0 L (2-4) % Baso % (Auto) 0 (0-1) % Sodium 139 L (140-148) mmol/L Potassium 4.0 (3.6-5.2) mmol/L Chloride 99 L (100-108) mmol/L Carbon Dioxide 27 (21-32) mmol/L Anion Gap 17.0 H (5.0-14.0) mmol/L BUN 20 H (7-18) mg/dL Creatinine 1.2 H (0.6-1.0) mg/dL Est Cr Clr Drug Dosing 30.93 mL/min Estimated GFR (MDRD) 43 L (>60) Glucose 108 H (74-106) mg/dL Lactic Acid (0.4-2.0) mmol/L Calcium 9.2 (8.5-10.1) mg/dL Total Bilirubin 0.7 D (0.2-1.0) mg/dL AST 24 (15-37) U/L ALT 25 (12-78) U/L Alkaline Phosphatase 98 (46-116) U/L Troponin I < 0.017 (0.000-0.056) ng/mL C-Reactive Protein 1.62 H (0.0-0.3) mg/dL Total Protein 7.4 (6.4-8.2) g/dL Albumin 3.7 (3.4-5.0) g/dL Globulin 3.7 H (2.3-3.5) g/dL Albumin/Globulin Ratio 1.0 L (1.2-2.2) Lipase 57 L (73-393) U/L Procalcitonin ng/mL Urine Color (YELLOW) Urine Appearance (CLEAR) Urine pH (5.0-8.0) Ur Specific [place] (1.008-1.030) Urine Protein (NEGATIVE) mg/dL Urine Glucose (UA) (NEGATIVE) mg/dL Urine Ketones (NEGATIVE) mg/dL Urine Occult Blood (NEGATIVE) Urine Nitrite (NEGATIVE) Urine Bilirubin (NEGATIVE) Urine Urobilinogen (0.2-1.0) EU/dL Ur Leukocyte Esterase (NEGATIVE) Urine RBC (0-5) Urine WBC (0-5) Ur Epithelial Cells Amorphous Sediment Urine Bacteria Urine Mucus Influenza Type A RNA Negative (NEGATIVE) RSV RNA (INAAT) Negative (NEGATIVE) Influenza Type B RNA Negative (NEGATIVE) SARS-CoV-2 RNA (TONY) Negative (NEGATIVE) 05/19/20 05/19/20 05/19/20 Range/Units 15:33 16:07 17:37 WBC (4.5-11.0) K/uL RBC (3.30-5.50) M/uL Hgb (12.0-15.0) g/dL Hct (36.0-48.0) % MCV (80-98) fL MCH (27-31) pg MCHC (32-36) % Plt Count (150-400) K/uL Neut % (Auto) (36-66) % Lymph % (Auto) (24-44) % [place] % (Auto) (2-6) % Eos % (Auto) (2-4) % Baso % (Auto) (0-1) % Sodium (140-148) mmol/L Potassium (3.6-5.2) mmol/L Chloride (100-108) mmol/L Carbon Dioxide (21-32) mmol/L Anion Gap (5.0-14.0) mmol/L BUN (7-18) mg/dL Creatinine (0.6-1.0) mg/dL Est Cr Clr Drug Dosing mL/min Estimated GFR (MDRD) (>60) Glucose (74-106) mg/dL Lactic Acid 2.2 H (0.4-2.0) mmol/L Calcium (8.5-10.1) mg/dL Total Bilirubin (0.2-1.0) mg/dL AST (15-37) U/L ALT (12-78) U/L Alkaline Phosphatase (46-116) U/L Troponin I (0.000-0.056) ng/mL C-Reactive Protein (0.0-0.3) mg/dL Total Protein (6.4-8.2) g/dL Albumin (3.4-5.0) g/dL Globulin (2.3-3.5) g/dL Albumin/Globulin Ratio (1.2-2.2) Lipase (73-393) U/L Procalcitonin 0.20 ng/mL Urine Color Yellow (YELLOW) Urine Appearance Clear (CLEAR) Urine pH 8.5 H (5.0-8.0) Ur Specific [place] 1.020 (1.008-1.030) Urine Protein Negative (NEGATIVE) mg/dL Urine Glucose (UA) Negative (NEGATIVE) mg/dL Urine Ketones Negative (NEGATIVE) mg/dL Urine Occult Blood Moderate H (NEGATIVE) Urine Nitrite Negative (NEGATIVE) Urine Bilirubin Negative (NEGATIVE) Urine Urobilinogen 0.2 (0.2-1.0) EU/dL Ur Leukocyte Esterase Negative (NEGATIVE) Urine RBC 20-30 H (0-5) Urine WBC 0-5 (0-5) Ur Epithelial Cells Rare Amorphous Sediment Not seen Urine Bacteria Few Urine Mucus Not seen Influenza Type A RNA (NEGATIVE) RSV RNA (INAAT) (NEGATIVE) Influenza Type B RNA (NEGATIVE) SARS-CoV-2 RNA (TONY) (NEGATIVE) 05/19/20 05/20/20 05/20/20 Range/Units 22:10 05:30 05:30 WBC 14.3 H (4.5-11.0) K/uL RBC 4.10 (3.30-5.50) M/uL Hgb 11.9 L D (12.0-15.0) g/dL Hct 36.6 (36.0-48.0) % MCV 89 (80-98) fL MCH 29 (27-31) pg MCHC 33 (32-36) % Plt Count 166 (150-400) K/uL Neut % (Auto) 88 H (36-66) % Lymph % (Auto) 6 L (24-44) % [place] % (Auto) 6 (2-6) % Eos % (Auto) 0 L (2-4) % Baso % (Auto) 0 (0-1) % Sodium 140 (140-148) mmol/L Potassium 3.7 (3.6-5.2) mmol/L Chloride 103 (100-108) mmol/L Carbon Dioxide 26 (21-32) mmol/L Anion Gap 11.5 (5.0-14.0) mmol/L BUN 18 (7-18) mg/dL Creatinine 1.4 H (0.6-1.0) mg/dL Est Cr Clr Drug Dosing 26.51 mL/min Estimated GFR (MDRD) 36 L (>60) Glucose 99 (74-106) mg/dL Lactic Acid 1.7 (0.4-2.0) mmol/L Calcium 8.0 L (8.5-10.1) mg/dL Total Bilirubin (0.2-1.0) mg/dL AST (15-37) U/L ALT (12-78) U/L Alkaline Phosphatase (46-116) U/L Troponin I (0.000-0.056) ng/mL C-Reactive Protein 12.01 H (0.0-0.3) mg/dL Total Protein (6.4-8.2) g/dL Albumin (3.4-5.0) g/dL Globulin (2.3-3.5) g/dL Albumin/Globulin Ratio (1.2-2.2) Lipase (73-393) U/L Procalcitonin ng/mL Urine Color (YELLOW) Urine Appearance (CLEAR) Urine pH (5.0-8.0) Ur Specific [place] (1.008-1.030) Urine Protein (NEGATIVE) mg/dL Urine Glucose (UA) (NEGATIVE) mg/dL Urine Ketones (NEGATIVE) mg/dL Urine Occult Blood (NEGATIVE) Urine Nitrite (NEGATIVE) Urine Bilirubin (NEGATIVE) Urine Urobilinogen (0.2-1.0) EU/dL Ur Leukocyte Esterase (NEGATIVE) Urine RBC (0-5) Urine WBC (0-5) Ur Epithelial Cells Amorphous Sediment Urine Bacteria Urine Mucus Influenza Type A RNA (NEGATIVE) RSV RNA (INAAT) (NEGATIVE) Influenza Type B RNA (NEGATIVE) SARS-CoV-2 RNA (TONY) (NEGATIVE) Med Orders - Current: Current Medications Acetaminophen (Acetaminophen 325 Mg Tab) 650 mg PO Q4H PRN PRN Reason: Pain (Mild 1-3)/fever Hydrocodone Bitart/Acetaminophen (Acetaminophen/Hydrocodone 325-5 Mg Tab) 1 tab PO Q4H PRN PRN Reason: Pain (moderate 4-6) Albuterol (Albuterol 0.083% 2.5 Mg/3 Ml Neb Soln) 2.5 mg NEB Q4H PRN PRN Reason: Shortness Of Breath/wheezing Diphenhydramine HCl (Diphenhydramine 25 Mg Cap) 25 mg PO BEDTIME PRN PRN Reason: Insomnia Docusate Sodium (Docusate Sodium 100 Mg Cap) 100 mg PO BID PRN PRN Reason: Constipation Folic Acid (Folic Acid 1 Mg Tab) 0.5 mg PO DAILY [facility] Last Admin: 05/20/20 09:33 Dose: 0.5 mg Documented by: Lorazepam (Lorazepam 2 Mg/Ml Sdv) 1 mg IV Q6H PRN PRN Reason: Nausea/Vomiting Melatonin (Melatonin 3 Mg Tab) 6 mg PO BEDTIME PRN PRN Reason: Insomnia Metoprolol Tartrate (Metoprolol Tartrate 50 Mg Tab) 50 mg PO BID [facility] Last Admin: 05/19/20 20:45 Dose: 50 mg Documented by: Morphine Sulfate (Morphine 2 Mg/Ml Syringe) 2 mg IVPUSH Q2H PRN PRN Reason: Pain (severe 7-10) Ondansetron HCl (Ondansetron 4 Mg Tab.Dis) 4 mg PO Q6H PRN PRN Reason: Nausea able to take PO Discontinued Medications Albuterol/Ipratropium (Albuterol/Ipratropium 3.0-0.5 Mg/3 Ml Neb Soln) 3 ml NEB QID PRN PRN Reason: Shortness Of Breath/wheezing Fentanyl (Fentanyl 100 Mcg/2 Ml Sdv) 50 mcg IVPUSH ONETIME ONE Stop: 05/19/20 15:28 Last Admin: 05/19/20 15:47 Dose: 50 mcg Documented by: Hydromorphone HCl (Hydromorphone 1 Mg/Ml Syringe) 1 mg IVPUSH ONETIME ONE Stop: 05/19/20 18:36 Last Admin: 05/19/20 18:49 Dose: 1 mg Documented by: Lactated Ringer's (Ringers, Lactated) 1,000 mls @ 999 mls/hr IV ASDIRECTED [facility] Last Admin: 05/19/20 15:41 Dose: 999 mls/hr Documented by: Piperacillin Sod/Tazobactam (Sod 4.5 gm/ Sodium Chloride) 100 mls @ 100 mls/hr IV Q6H [facility] Last Admin: 05/20/20 04:42 Dose: 100 mls/hr Documented by: Acetaminophen 1,000 mg/ Premix 100 mls @ 400 mls/hr IV NOW ONE Stop: 05/19/20 18:58 Last Admin: 05/19/20 18:59 Dose: 400 mls/hr Documented by: Metronidazole 500 mg/ Premix 100 mls @ 100 mls/hr IV Q8H [facility] Last Admin: 05/20/20 03:41 Dose: 100 mls/hr Documented by: Ciprofloxacin/Dextrose 400 mg/ (Premix) 200 mls @ 200 mls/hr IV Q12H [facility] Last Admin: 05/19/20 20:07 Dose: 200 mls/hr Documented by: Sodium Chloride (Normal Saline) 1,000 mls @ 125 mls/hr IV ASDIRECTED [facility] Last Admin: 05/20/20 07:57 Dose: 125 mls/hr Documented by: Ceftriaxone Sodium 1 gm/ (Sodium Chloride) 50 mls @ 100 mls/hr IV Q24H [facility] Last Admin: 05/19/20 21:33 Dose: 100 mls/hr Documented by: Ciprofloxacin/Dextrose 400 mg/ (Premix) 200 mls @ 200 mls/hr IV Q24H [facility] Metronidazole 500 mg/ Premix 100 mls @ 100 mls/hr IV Q8H [facility] Lorazepam (Lorazepam 2 Mg/Ml Sdv) 0.5 mg IVPUSH ONETIME ONE Stop: 05/19/20 17:16 Last Admin: 05/19/20 17:26 Dose: 0.5 mg Documented by: Ondansetron HCl (Ondansetron 4 Mg/2 Ml Sdv) 4 mg IVPUSH ONETIME ONE Stop: 05/19/20 15:28 Last Admin: 05/19/20 15:47 Dose: 4 mg Documented by: - Exam Quality Assessment: No: Supplemental Oxygen General: Alert, Oriented, Cooperative, No Acute Distress Lungs: Normal Respiratory Effort GI/Abdominal Exam: Soft, No Distention Extremities: Pedal Edema (right ankle ), Increased Warmth (top of right foot and right ankle ) Skin: Warm, Dry, Rash (erythema and warmth right foot and ankle ) Psy/Mental Status: Alert, Normal Affect - Patient Data Lab Results Last 24 hrs: Laboratory Results - last 24 hr 05/19/20 05/19/20 05/19/20 Range/Units 15:16 15:19 15:33 WBC 18.4 H (4.5-11.0) K/uL RBC 5.04 (3.30-5.50) M/uL Hgb 14.5 (12.0-15.0) g/dL Hct 44.6 (36.0-48.0) % MCV 89 (80-98) fL MCH 29 (27-31) pg MCHC 33 (32-36) % Plt Count 207 (150-400) K/uL Neut % (Auto) 90 H (36-66) % Lymph % (Auto) 2 L (24-44) % [place] % (Auto) 8 H (2-6) % Eos % (Auto) 0 L (2-4) % Baso % (Auto) 0 (0-1) % Sodium 139 L (140-148) mmol/L Potassium 4.0 (3.6-5.2) mmol/L Chloride 99 L (100-108) mmol/L Carbon Dioxide 27 (21-32) mmol/L Anion Gap 17.0 H (5.0-14.0) mmol/L BUN 20 H (7-18) mg/dL Creatinine 1.2 H (0.6-1.0) mg/dL Est Cr Clr Drug Dosing 30.93 mL/min Estimated GFR (MDRD) 43 L (>60) Glucose 108 H (74-106) mg/dL Lactic Acid (0.4-2.0) mmol/L Calcium 9.2 (8.5-10.1) mg/dL Total Bilirubin 0.7 D (0.2-1.0) mg/dL AST 24 (15-37) U/L ALT 25 (12-78) U/L Alkaline Phosphatase 98 (46-116) U/L Troponin I < 0.017 (0.000-0.056) ng/mL C-Reactive Protein 1.62 H (0.0-0.3) mg/dL Total Protein 7.4 (6.4-8.2) g/dL Albumin 3.7 (3.4-5.0) g/dL Globulin 3.7 H (2.3-3.5) g/dL Albumin/Globulin Ratio 1.0 L (1.2-2.2) Lipase 57 L (73-393) U/L Procalcitonin ng/mL Urine Color (YELLOW) Urine Appearance (CLEAR) Urine pH (5.0-8.0) Ur Specific [place] (1.008-1.030) Urine Protein (NEGATIVE) mg/dL Urine Glucose (UA) (NEGATIVE) mg/dL Urine Ketones (NEGATIVE) mg/dL Urine Occult Blood (NEGATIVE) Urine Nitrite (NEGATIVE) Urine Bilirubin (NEGATIVE) Urine Urobilinogen (0.2-1.0) EU/dL Ur Leukocyte Esterase (NEGATIVE) Urine RBC (0-5) Urine WBC (0-5) Ur Epithelial Cells Amorphous Sediment Urine Bacteria Urine Mucus Influenza Type A RNA Negative (NEGATIVE) RSV RNA (INAAT) Negative (NEGATIVE) Influenza Type B RNA Negative (NEGATIVE) SARS-CoV-2 RNA (TONY) Negative (NEGATIVE) 05/19/20 05/19/20 05/19/20 Range/Units 15:33 16:07 17:37 WBC (4.5-11.0) K/uL RBC (3.30-5.50) M/uL Hgb (12.0-15.0) g/dL Hct (36.0-48.0) % MCV (80-98) fL MCH (27-31) pg MCHC (32-36) % Plt Count (150-400) K/uL Neut % (Auto) (36-66) % Lymph % (Auto) (24-44) % [place] % (Auto) (2-6) % Eos % (Auto) (2-4) % Baso % (Auto) (0-1) % Sodium (140-148) mmol/L Potassium (3.6-5.2) mmol/L Chloride (100-108) mmol/L Carbon Dioxide (21-32) mmol/L Anion Gap (5.0-14.0) mmol/L BUN (7-18) mg/dL Creatinine (0.6-1.0) mg/dL Est Cr Clr Drug Dosing mL/min Estimated GFR (MDRD) (>60) Glucose (74-106) mg/dL Lactic Acid 2.2 H (0.4-2.0) mmol/L Calcium (8.5-10.1) mg/dL Total Bilirubin (0.2-1.0) mg/dL AST (15-37) U/L ALT (12-78) U/L Alkaline Phosphatase (46-116) U/L Troponin I (0.000-0.056) ng/mL C-Reactive Protein (0.0-0.3) mg/dL Total Protein (6.4-8.2) g/dL Albumin (3.4-5.0) g/dL Globulin (2.3-3.5) g/dL Albumin/Globulin Ratio (1.2-2.2) Lipase (73-393) U/L Procalcitonin 0.20 ng/mL Urine Color Yellow (YELLOW) Urine Appearance Clear (CLEAR) Urine pH 8.5 H (5.0-8.0) Ur Specific [place] 1.020 (1.008-1.030) Urine Protein Negative (NEGATIVE) mg/dL Urine Glucose (UA) Negative (NEGATIVE) mg/dL Urine Ketones Negative (NEGATIVE) mg/dL Urine Occult Blood Moderate H (NEGATIVE) Urine Nitrite Negative (NEGATIVE) Urine Bilirubin Negative (NEGATIVE) Urine Urobilinogen 0.2 (0.2-1.0) EU/dL Ur Leukocyte Esterase Negative (NEGATIVE) Urine RBC 20-30 H (0-5) Urine WBC 0-5 (0-5) Ur Epithelial Cells Rare Amorphous Sediment Not seen Urine Bacteria Few Urine Mucus Not seen Influenza Type A RNA (NEGATIVE) RSV RNA (INAAT) (NEGATIVE) Influenza Type B RNA (NEGATIVE) SARS-CoV-2 RNA (TONY) (NEGATIVE) 05/19/20 05/20/20 05/20/20 Range/Units 22:10 05:30 05:30 WBC 14.3 H (4.5-11.0) K/uL RBC 4.10 (3.30-5.50) M/uL Hgb 11.9 L D (12.0-15.0) g/dL Hct 36.6 (36.0-48.0) % MCV 89 (80-98) fL MCH 29 (27-31) pg MCHC 33 (32-36) % Plt Count 166 (150-400) K/uL Neut % (Auto) 88 H (36-66) % Lymph % (Auto) 6 L (24-44) % [place] % (Auto) 6 (2-6) % Eos % (Auto) 0 L (2-4) % Baso % (Auto) 0 (0-1) % Sodium 140 (140-148) mmol/L Potassium 3.7 (3.6-5.2) mmol/L Chloride 103 (100-108) mmol/L Carbon Dioxide 26 (21-32) mmol/L Anion Gap 11.5 (5.0-14.0) mmol/L BUN 18 (7-18) mg/dL Creatinine 1.4 H (0.6-1.0) mg/dL Est Cr Clr Drug Dosing 26.51 mL/min Estimated GFR (MDRD) 36 L (>60) Glucose 99 (74-106) mg/dL Lactic Acid 1.7 (0.4-2.0) mmol/L Calcium 8.0 L (8.5-10.1) mg/dL Total Bilirubin (0.2-1.0) mg/dL AST (15-37) U/L ALT (12-78) U/L Alkaline Phosphatase (46-116) U/L Troponin I (0.000-0.056) ng/mL C-Reactive Protein 12.01 H (0.0-0.3) mg/dL Total Protein (6.4-8.2) g/dL Albumin (3.4-5.0) g/dL Globulin (2.3-3.5) g/dL Albumin/Globulin Ratio (1.2-2.2) Lipase (73-393) U/L Procalcitonin ng/mL Urine Color (YELLOW) Urine Appearance (CLEAR) Urine pH (5.0-8.0) Ur Specific [place] (1.008-1.030) Urine Protein (NEGATIVE) mg/dL Urine Glucose (UA) (NEGATIVE) mg/dL Urine Ketones (NEGATIVE) mg/dL Urine Occult Blood (NEGATIVE) Urine Nitrite (NEGATIVE) Urine Bilirubin (NEGATIVE) Urine Urobilinogen (0.2-1.0) EU/dL Ur Leukocyte Esterase (NEGATIVE) Urine RBC (0-5) Urine WBC (0-5) Ur Epithelial Cells Amorphous Sediment Urine Bacteria Urine Mucus Influenza Type A RNA (NEGATIVE) RSV RNA (INAAT) (NEGATIVE) Influenza Type B RNA (NEGATIVE) SARS-CoV-2 RNA (TONY) (NEGATIVE) Result Diagrams: 05/20/20 05:30 05/20/20 05:30 Sepsis Event Note - Evaluation Sepsis Screening Result: Severe Sepsis Risk - Focused Exam Vital Signs: Vital Signs Temp Pulse Resp BP BP Pulse Ox 05/20/20 07:45 36.7 C 73 16 106/48 L 95 05/20/20 07:41 95 05/20/20 05:00 36.3 C 68 20 95 05/20/20 01:29 99 05/20/20 01:00 36.7 C 75 20 115/47 L 97 - Problem List Review Problem List Initiated/Reviewed/Updated: Yes - My Orders Last 24 Hours: My Active Orders 05/20/20 10:20 Discontinue Telemetry Monitoring [Cardiac Monitoring Discontinue] [RC] Click to Edit 05/20/20 10:30 Lactobacillus Rhamnosus GG [Culturelle] 1 cap PO BID Sodium Chloride 0.9% [Normal Saline] 1,000 ml IV ASDIRECTED 05/20/20 14:00 ceFAZolin [Ancef] 1 gm Sodium Chloride 0.9% [Normal Saline] 50 ml IV Q8HR 05/21/20 05:00 BASIC METABOLIC PANEL,BMP [CHEM] Timed CBC W/O DIFF,HEMOGRAM [HEME] Timed (1) - Plan Plan:: ASSESSMENT AND PLAN - Cellulitis right lower leg-redness and swelling have improved since yesterday. White blood cell count has improved. No fever since the emergency room. No obvious portal of entry for the infection. Clinically doing better but still weak and fatigued. -Antibiotic coverage with cefazolin -Symptomatic management of pain -Follow-up cultures -Physical therapy Abdominal pain and diarrhea-CT scan and urinalysis negative. Clinically doing better. Patient did recently take some MiraLAX and that could explain the diarrhea. Planning to discontinue antibiotics covering enteric organisms. -Monitor Maintenance issues - - DVT prophylaxis - SCD - GI prophylaxis -PPI - Nutrition -regular diet Disposition -I would anticipate discharge home after the hospital stay Patric Soto M.D.
[2020-05-20] MEDS: Metoprolol Tartrate 50 MG Tab PO SCH ×2 (10:55→21:31)
[2020-05-20] MEDS: Lactobacillus Rhamnosus GG (Probiotic) Cap PO SCH ×2 (11:38→21:31)
[2020-05-20] MEDS ORDERED: metroNIDAZOLE/Normal Saline 500 MG in Premix Bag 1 BAG IV SCH (12:00)
[2020-05-20] MEDS: ceFAZolin 1 GM in Premix Bag 1 BAG IV SCH ×2 (14:43→21:35)
[2020-05-20] MEDS ORDERED: Ciprofloxacin in D5W 400 MG in Premix Bag 1 BAG IV SCH ×2 (18:00)
[2020-05-21] MEDS: Sodium Chloride 0.9% 1,000 ML IV SCH ×2 (02:22→17:02)
[2020-05-21] MEDS: ceFAZolin 1 GM in Premix Bag 1 BAG IV SCH ×3 (05:24→22:04)
[2020-05-21] MEDS: Metoprolol Tartrate 50 MG Tab PO SCH ×2 (08:25→20:26)
[2020-05-21] MEDS: Lactobacillus Rhamnosus GG (Probiotic) Cap PO SCH ×2 (08:25→20:26)
[2020-05-21] MEDS: Folic Acid 1 MG Tab PO SCH (08:25)
[2020-05-21] MEDS ORDERED: Potassium Chloride 20 MEQ Tab.ER PO ONE (09:30)
--- NOTE | 2020-05-21 09:49 | CR ---
CHEST: Portable 05/19/2020 at 3:35 PM CLINICAL HISTORY:Fever COMPARISON:2010 FINDINGS: The heart size, pulmonary vascularity and hilar structures are normal. No infiltrate effusion or pneumothorax is seen. There are atherosclerotic changes in the aorta.. 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
--- NOTE | 2020-05-21 17:14 | PCM.PN ---
- General Info Date of Service: 05/21/20 Subjective Update: Ms. Gibson has continued to experience some abdominal discomfort and symptoms of nausea, the symptoms seem to be worse with eating and she feels somewhat bloated . Area of cellulitis on her leg does appear to be improved since admission to the hospital. Functional Status: Reports: Urinating - Review of Systems General: Reports: Weakness, Fatigue. Denies: Fever, Chills Pulmonary: Reports: No Symptoms Cardiovascular: Reports: No Symptoms Gastrointestinal: Reports: Abdominal Pain, Decreased Appetite, Nausea. Denies: Difficulty Swallowing, Hematochezia, Melena, Vomiting - Patient Data Vitals - Most Recent: Last Vital Signs Temp 97.1 F 05/21/20 15:00 Pulse 66 05/21/20 15:00 Resp 16 05/21/20 15:00 BP 110/66 05/21/20 15:00 Pulse Ox 94 L 05/21/20 15:00 Weight - Most Recent: 192 lb I&O - Last 24 Hours: Intake & Output 05/21/20 05/21/20 05/21/20 06:59 14:59 22:59 Intake Total 50 890 Output Total 600 400 Balance -550 890 -400 Lab Results Last 24 Hours: Laboratory Results - last 24 hr 05/21/20 05/21/20 Range/Units 05:00 05:00 WBC 9.3 (4.5-11.0) K/uL RBC 4.21 (3.30-5.50) M/uL Hgb 12.0 (12.0-15.0) g/dL Hct 37.5 (36.0-48.0) % MCV 89 (80-98) fL MCH 29 (27-31) pg MCHC 32 (32-36) % Plt Count 176 (150-400) K/uL Sodium 142 (140-148) mmol/L Potassium 3.5 L (3.6-5.2) mmol/L Chloride 107 (100-108) mmol/L Carbon Dioxide 23 (21-32) mmol/L Anion Gap 15.5 H (5.0-14.0) mmol/L BUN 14 (7-18) mg/dL Creatinine 1.0 (0.6-1.0) mg/dL Est Cr Clr Drug Dosing 37.12 mL/min Estimated GFR (MDRD) 53 L (>60) Glucose 89 (74-106) mg/dL Calcium 7.9 L (8.5-10.1) mg/dL Nathaniel Results Last 24 Hours: Microbiology 05/19/20 15:25 Aerobic Blood Culture - Preliminary Blood - Venous - Iv Start NO GROWTH AFTER 2 DAYS Anaerobic Blood Culture - Preliminary NO GROWTH AFTER 2 DAYS 05/19/20 15:30 Aerobic Blood Culture - Preliminary Blood - Venous - Lab Draw NO GROWTH AFTER 2 DAYS Anaerobic Blood Culture - Preliminary NO GROWTH AFTER 2 DAYS Med Orders - Current: Current Medications Acetaminophen (Acetaminophen 325 Mg Tab) 650 mg PO Q4H PRN PRN Reason: Pain (Mild 1-3)/fever Last Admin: 05/20/20 11:38 Dose: 650 mg Documented by: Hydrocodone Bitart/Acetaminophen (Acetaminophen/Hydrocodone 325-5 Mg Tab) 1 tab PO Q4H PRN PRN Reason: Pain (moderate 4-6) Last Admin: 05/21/20 11:08 Dose: 1 tab Documented by: Albuterol (Albuterol 0.083% 2.5 Mg/3 Ml Neb Soln) 2.5 mg NEB Q4H PRN PRN Reason: Shortness Of Breath/wheezing Diphenhydramine HCl (Diphenhydramine 25 Mg Cap) 25 mg PO BEDTIME PRN PRN Reason: Insomnia Docusate Sodium (Docusate Sodium 100 Mg Cap) 100 mg PO BID PRN PRN Reason: Constipation Folic Acid (Folic Acid 1 Mg Tab) 0.5 mg PO DAILY [facility] Last Admin: 05/21/20 08:25 Dose: 0.5 mg Documented by: Cefazolin Sodium/Dextrose 1 gm (/ Premix) 50 mls @ 100 mls/hr IV Q8HR [facility] Last Admin: 05/21/20 13:20 Dose: 100 mls/hr Documented by: Lactobacillus Rhamnosus (Lactobacillus Rhamnosus Gg (Probiotic) Cap) 1 cap PO BID [facility] Last Admin: 05/21/20 08:25 Dose: 1 cap Documented by: Lorazepam (Lorazepam 2 Mg/Ml Sdv) 1 mg IV Q6H PRN PRN Reason: Nausea/Vomiting Last Admin: 05/21/20 13:09 Dose: 1 mg Documented by: Melatonin (Melatonin 3 Mg Tab) 6 mg PO BEDTIME PRN PRN Reason: Insomnia Metoprolol Tartrate (Metoprolol Tartrate 50 Mg Tab) 50 mg PO BID [facility] Last Admin: 05/21/20 08:25 Dose: 50 mg Documented by: Morphine Sulfate (Morphine 2 Mg/Ml Syringe) 2 mg IVPUSH Q2H PRN PRN Reason: Pain (severe 7-10) Ondansetron HCl (Ondansetron 4 Mg Tab.Dis) 4 mg PO Q6H PRN PRN Reason: Nausea able to take PO Last Admin: 05/21/20 11:08 Dose: 4 mg Documented by: Discontinued Medications Albuterol/Ipratropium (Albuterol/Ipratropium 3.0-0.5 Mg/3 Ml Neb Soln) 3 ml NEB QID PRN PRN Reason: Shortness Of Breath/wheezing Fentanyl (Fentanyl 100 Mcg/2 Ml Sdv) 50 mcg IVPUSH ONETIME ONE Stop: 05/19/20 15:28 Last Admin: 05/19/20 15:47 Dose: 50 mcg Documented by: Hydromorphone HCl (Hydromorphone 1 Mg/Ml Syringe) 1 mg IVPUSH ONETIME ONE Stop: 05/19/20 18:36 Last Admin: 05/19/20 18:49 Dose: 1 mg Documented by: Lactated Ringer's (Ringers, Lactated) 1,000 mls @ 999 mls/hr IV ASDIRECTED [facility] Last Admin: 05/19/20 15:41 Dose: 999 mls/hr Documented by: Piperacillin Sod/Tazobactam (Sod 4.5 gm/ Sodium Chloride) 100 mls @ 100 mls/hr IV Q6H [facility] Last Admin: 05/20/20 04:42 Dose: 100 mls/hr Documented by: Acetaminophen 1,000 mg/ Premix 100 mls @ 400 mls/hr IV NOW ONE Stop: 05/19/20 18:58 Last Admin: 05/19/20 18:59 Dose: 400 mls/hr Documented by: Metronidazole 500 mg/ Premix 100 mls @ 100 mls/hr IV Q8H [facility] Last Admin: 05/20/20 03:41 Dose: 100 mls/hr Documented by: Ciprofloxacin/Dextrose 400 mg/ (Premix) 200 mls @ 200 mls/hr IV Q12H [facility] Last Admin: 05/19/20 20:07 Dose: 200 mls/hr Documented by: Sodium Chloride (Normal Saline) 1,000 mls @ 125 mls/hr IV ASDIRECTED [facility] Last Admin: 05/20/20 07:57 Dose: 125 mls/hr Documented by: Ceftriaxone Sodium 1 gm/ (Sodium Chloride) 50 mls @ 100 mls/hr IV Q24H [facility] Last Admin: 05/19/20 21:33 Dose: 100 mls/hr Documented by: Ciprofloxacin/Dextrose 400 mg/ (Premix) 200 mls @ 200 mls/hr IV Q24H [facility] Metronidazole 500 mg/ Premix 100 mls @ 100 mls/hr IV Q8H [facility] Sodium Chloride (Normal Saline) 1,000 mls @ 75 mls/hr IV ASDIRECTED [facility] Last Admin: 05/21/20 17:02 Dose: 75 mls/hr Documented by: Lorazepam (Lorazepam 2 Mg/Ml Sdv) 0.5 mg IVPUSH ONETIME ONE Stop: 05/19/20 17:16 Last Admin: 05/19/20 17:26 Dose: 0.5 mg Documented by: Ondansetron HCl (Ondansetron 4 Mg/2 Ml Sdv) 4 mg IVPUSH ONETIME ONE Stop: 05/19/20 15:28 Last Admin: 05/19/20 15:47 Dose: 4 mg Documented by: Potassium Chloride (Potassium Chloride 20 Meq Tab.Er) 40 meq PO ONETIME ONE Stop: 05/21/20 09:31 Last Admin: 05/21/20 11:08 Dose: 40 meq Documented by: - Exam Quality Assessment: DVT Prophylaxis General: Alert, Oriented, Cooperative, Moderate Distress Lungs: Clear to Auscultation, Normal Respiratory Effort Cardiovascular: Regular Rate, Regular Rhythm, No Murmurs GI/Abdominal Exam: Soft, Non-Tender, No Organomegaly, No Distention Extremities: Non-Tender, Pedal Edema - Patient Data Lab Results Last 24 hrs: Laboratory Results - last 24 hr 05/21/20 05/21/20 Range/Units 05:00 05:00 WBC 9.3 (4.5-11.0) K/uL RBC 4.21 (3.30-5.50) M/uL Hgb 12.0 (12.0-15.0) g/dL Hct 37.5 (36.0-48.0) % MCV 89 (80-98) fL MCH 29 (27-31) pg MCHC 32 (32-36) % Plt Count 176 (150-400) K/uL Sodium 142 (140-148) mmol/L Potassium 3.5 L (3.6-5.2) mmol/L Chloride 107 (100-108) mmol/L Carbon Dioxide 23 (21-32) mmol/L Anion Gap 15.5 H (5.0-14.0) mmol/L BUN 14 (7-18) mg/dL Creatinine 1.0 (0.6-1.0) mg/dL Est Cr Clr Drug Dosing 37.12 mL/min Estimated GFR (MDRD) 53 L (>60) Glucose 89 (74-106) mg/dL Calcium 7.9 L (8.5-10.1) mg/dL Result Diagrams: 05/21/20 05:00 05/21/20 05:00 Nathaniel Results Last 24 hrs: Microbiology 05/19/20 15:25 Aerobic Blood Culture - Preliminary Blood - Venous - Iv Start NO GROWTH AFTER 2 DAYS Anaerobic Blood Culture - Preliminary NO GROWTH AFTER 2 DAYS 05/19/20 15:30 Aerobic Blood Culture - Preliminary Blood - Venous - Lab Draw NO GROWTH AFTER 2 DAYS Anaerobic Blood Culture - Preliminary NO GROWTH AFTER 2 DAYS Sepsis Event Note - Evaluation Sepsis Screening Result: No Definite Risk - Focused Exam Vital Signs: Vital Signs Temp Pulse Pulse Resp BP BP Pulse Ox 05/21/20 15:00 97.1 F 66 16 110/66 94 L 05/21/20 11:31 98.1 F 69 16 115/70 94 L 05/21/20 08:25 69 118/72 05/21/20 07:15 97.3 F 68 18 118/72 - Problem List Review Problem List Initiated/Reviewed/Updated: Yes - My Orders Last 24 Hours: My Active Orders 05/21/20 17:10 Convert IV to Saline Lock [OM.PC] Routine 05/22/20 05:00 BASIC METABOLIC PANEL,BMP [CHEM] Timed - Plan Plan:: ASSESSMENT AND PLAN - Cellulitis right lower leg-redness and swelling have improved since yesterday. White blood cell count has normalized. No fever since the emergency room. No obvious portal of entry for the infection. Clinically doing better but still weak and fatigued. -Antibiotic coverage with cefazolin -Symptomatic management of pain -Follow-up cultures -Physical therapy Abdominal pain and nausea-CT scan and urinalysis negative. Symptoms seem to be worse today compared to yesterday -Monitor Maintenance issues - - DVT prophylaxis - SCD - GI prophylaxis -PPI - Nutrition -regular diet Disposition -I would anticipate discharge home after the hospital stay
[2020-05-22] MEDS: ceFAZolin 1 GM in Premix Bag 1 BAG IV SCH (05:26)
[2020-05-22] MEDS: Metoprolol Tartrate 50 MG Tab PO SCH (08:10)
[2020-05-22] MEDS: Folic Acid 1 MG Tab PO SCH (08:10)
[2020-05-22] MEDS: Lactobacillus Rhamnosus GG (Probiotic) Cap PO SCH (08:11)
[2020-05-22 10:52] VITALS: BP 100/80; PULSE 51
--- NOTE | 2020-05-22 12:09 | PCM.DCSUM1 ---
Discharge Summary - Hospital Course Brief History: Ms. Gibson is an 79-year-old woman who was admitted through the emergency department with progressive weakness secondary to cellulitis of her leg. - Discharge Data Discharge Date: 05/22/20 Discharge Disposition: Home, Self-Care 01 Condition: Fair - Referral to Home Health Primary Care Physician: Ga Allison MD - Discharge Diagnosis/Problem(s) (1) Cellulitis SNOMED Code(s): 226286580 ICD Code: L03.90 - CELLULITIS, UNSPECIFIED Status: Acute Current Visit: Yes (2) Diarrhea SNOMED Code(s): 33974418 ICD Code: R19.7 - DIARRHEA, UNSPECIFIED Status: Acute Priority: High Current Visit: Yes Qualifiers: Diarrhea type: presumed infectious Qualified Code(s): R19.7 - Diarrhea, unspecified - Patient Summary/Data Consults: Consultations 05/19/20 19:15 Consult to Spiritual Care [CONS] Routine 05/21/20 07:00 PT Evaluation and Treatment [CONS] Routine Please Evaluate and Treat. PT Reason for Consult: Strengthening This query below is only for informational purposes and is not editable. Admission Diagnosis/Problem: SIRS due to infectious process without acute organ dysfunction Hospital Course: Ms. Gibson 79-year-old woman who was admitted through the emergency department with progressive weakness secondary to cellulitis of her right lower leg. She had not felt well for a few days prior to admission and had had some difficulty with constipation. She took a dose of MiraLAX and developed abdominal pain with nausea and diarrhea. She presented to the emergency department for further evaluation. On assessment in the emergency department she was found to have elevated white blood cell count as well as cellulitis of her right lower leg. X-ray was clear with no obvious infiltrates and CT scan of the abdomen pelvis was unremarkable as well. She was admitted to the hospital with IV fluids for hydration and antibiotic therapy for management of her cellulitis. During hospitalization cellulitis improved significantly and had almost totally resolved by the time of discharge. Abdominal symptoms including diarrhea and pain also improved dramatically during her hospital stay. She will be discharged home with an additional 5 days of oral antibiotic therapy for cellulitis with cephalexin. Activity will be as tolerated and she will resume her usual diet. Follow-up appointment will be scheduled with her primary care provider within 1 week. - Patient Instructions Diet: Usual Diet as Tolerated Activity: As Tolerated Other/Special Instructions: Please schedule follow-up appointment with primary care provider within 1 week. - Discharge Plan *PRESCRIPTION DRUG MONITORING PROGRAM REVIEWED*: Not Applicable *COPY OF PRESCRIPTION DRUG MONITORING REPORT IN PATIENT RAMIRO: Not Applicable Prescriptions/Med Rec: cephALEXin [Cephalexin] 500 mg PO TID #15 tablet Home Medications: Home Meds *[id number] Vitamin D 200 1 tab PO DAILY 12/08/12 [History] Alendronate Sodium [Alendronate] 70 mg PO Q7D 12/08/12 [History] Aspirin [Adult Low Dose Aspirin EC] 81 mg PO DAILY 12/08/12 [History] Fluticasone Propionate [Flonase] 2 spray INH DAILY 12/08/12 [History] Folic Acid 0.4 mg PO DAILY 12/08/12 [History] Metoprolol Tartrate [Lopressor] 50 mg PO BID 12/08/12 [History] Multivitamin [Multivitamins] 1 each PO DAILY 12/08/12 [History] cephALEXin [Cephalexin] 500 mg PO TID #15 tablet 05/22/20 [Rx] Patient Handouts: Cellulitis, Adult, [id number] Referrals: Ga Allison MD [Primary Care Provider] - 06/01/20 9:00 am (Your appointment with Dr. Allison will be at the [facility] - Discharge Summary/Plan Comment DC Time >30 min.: No - Patient Data Vitals - Most Recent: Last Vital Signs Temp 96.6 F L 05/22/20 10:50 Pulse 51 L 05/22/20 10:50 Resp 16 05/22/20 10:50 BP 100/80 05/22/20 10:50 Pulse Ox 96 05/22/20 10:50 Weight - Most Recent: 192 lb I&O - Last 24 hours: Intake & Output 05/21/20 05/22/20 05/22/20 22:59 06:59 14:59 Intake Total 648 50 120 Output Total 900 500 300 Balance -252 -450 -180 Lab Results - Last 24 hrs: Laboratory Results - last 24 hr 05/22/20 Range/Units 05:30 Sodium 145 (140-148) mmol/L Potassium 4.0 (3.6-5.2) mmol/L Chloride 111 H (100-108) mmol/L Carbon Dioxide 25 (21-32) mmol/L Anion Gap 13.0 (5.0-14.0) mmol/L BUN 10 (7-18) mg/dL Creatinine 0.9 (0.6-1.0) mg/dL Est Cr Clr Drug Dosing 41.24 mL/min Estimated GFR (MDRD) > 60 (>60) Glucose 78 (74-106) mg/dL Calcium 7.9 L (8.5-10.1) mg/dL ANA Results - Last 24 hrs: Microbiology 05/19/20 15:25 Aerobic Blood Culture - Preliminary Blood - Venous - Iv Start NO GROWTH AFTER 2 DAYS Anaerobic Blood Culture - Preliminary NO GROWTH AFTER 2 DAYS 05/19/20 15:30 Aerobic Blood Culture - Preliminary Blood - Venous - Lab Draw NO GROWTH AFTER 2 DAYS Anaerobic Blood Culture - Preliminary NO GROWTH AFTER 2 DAYS Med Orders - Current: Current Medications Acetaminophen (Acetaminophen 325 Mg Tab) 650 mg PO Q4H PRN PRN Reason: Pain (Mild 1-3)/fever Last Admin: 05/20/20 11:38 Dose: 650 mg Documented by: Hydrocodone Bitart/Acetaminophen (Acetaminophen/Hydrocodone 325-5 Mg Tab) 1 tab PO Q4H PRN PRN Reason: Pain (moderate 4-6) Last Admin: 05/21/20 11:08 Dose: 1 tab Documented by: Albuterol (Albuterol 0.083% 2.5 Mg/3 Ml Neb Soln) 2.5 mg NEB Q4H PRN PRN Reason: Shortness Of Breath/wheezing Diphenhydramine HCl (Diphenhydramine 25 Mg Cap) 25 mg PO BEDTIME PRN PRN Reason: Insomnia Docusate Sodium (Docusate Sodium 100 Mg Cap) 100 mg PO BID PRN PRN Reason: Constipation Folic Acid (Folic Acid 1 Mg Tab) 0.5 mg PO DAILY [facility] Last Admin: 05/22/20 08:10 Dose: 0.5 mg Documented by: Cefazolin Sodium/Dextrose 1 gm (/ Premix) 50 mls @ 100 mls/hr IV Q8HR [facility] Last Admin: 05/22/20 05:26 Dose: 100 mls/hr Documented by: Lactobacillus Rhamnosus (Lactobacillus Rhamnosus Gg (Probiotic) Cap) 1 cap PO BID [facility] Last Admin: 05/22/20 08:11 Dose: 1 cap Documented by: Lorazepam (Lorazepam 2 Mg/Ml Sdv) 1 mg IV Q6H PRN PRN Reason: Nausea/Vomiting Last Admin: 05/21/20 13:09 Dose: 1 mg Documented by: Melatonin (Melatonin 3 Mg Tab) 6 mg PO BEDTIME PRN PRN Reason: Insomnia Last Admin: 05/21/20 22:04 Dose: 6 mg Documented by: Metoprolol Tartrate (Metoprolol Tartrate 50 Mg Tab) 50 mg PO BID [facility] Last Admin: 05/22/20 08:10 Dose: 50 mg Documented by: Morphine Sulfate (Morphine 2 Mg/Ml Syringe) 2 mg IVPUSH Q2H PRN PRN Reason: Pain (severe 7-10) Ondansetron HCl (Ondansetron 4 Mg Tab.Dis) 4 mg PO Q6H PRN PRN Reason: Nausea able to take PO Last Admin: 05/21/20 11:08 Dose: 4 mg Documented by: Discontinued Medications Albuterol/Ipratropium (Albuterol/Ipratropium 3.0-0.5 Mg/3 Ml Neb Soln) 3 ml NEB QID PRN PRN Reason: Shortness Of Breath/wheezing Fentanyl (Fentanyl 100 Mcg/2 Ml Sdv) 50 mcg IVPUSH ONETIME ONE Stop: 05/19/20 15:28 Last Admin: 05/19/20 15:47 Dose: 50 mcg Documented by: Hydromorphone HCl (Hydromorphone 1 Mg/Ml Syringe) 1 mg IVPUSH ONETIME ONE Stop: 05/19/20 18:36 Last Admin: 05/19/20 18:49 Dose: 1 mg Documented by: Lactated Ringer's (Ringers, Lactated) 1,000 mls @ 999 mls/hr IV ASDIRECTED [facility] Last Admin: 05/19/20 15:41 Dose: 999 mls/hr Documented by: Piperacillin Sod/Tazobactam (Sod 4.5 gm/ Sodium Chloride) 100 mls @ 100 mls/hr IV Q6H [facility] Last Admin: 05/20/20 04:42 Dose: 100 mls/hr Documented by: Acetaminophen 1,000 mg/ Premix 100 mls @ 400 mls/hr IV NOW ONE Stop: 05/19/20 18:58 Last Admin: 05/19/20 18:59 Dose: 400 mls/hr Documented by: Metronidazole 500 mg/ Premix 100 mls @ 100 mls/hr IV Q8H [facility] Last Admin: 05/20/20 03:41 Dose: 100 mls/hr Documented by: Ciprofloxacin/Dextrose 400 mg/ (Premix) 200 mls @ 200 mls/hr IV Q12H [facility] Last Admin: 05/19/20 20:07 Dose: 200 mls/hr Documented by: Sodium Chloride (Normal Saline) 1,000 mls @ 125 mls/hr IV ASDIRECTED [facility] Last Admin: 05/20/20 07:57 Dose: 125 mls/hr Documented by: Ceftriaxone Sodium 1 gm/ (Sodium Chloride) 50 mls @ 100 mls/hr IV Q24H [facility] Last Admin: 05/19/20 21:33 Dose: 100 mls/hr Documented by: Ciprofloxacin/Dextrose 400 mg/ (Premix) 200 mls @ 200 mls/hr IV Q24H [facility] Metronidazole 500 mg/ Premix 100 mls @ 100 mls/hr IV Q8H [facility] Sodium Chloride (Normal Saline) 1,000 mls @ 75 mls/hr IV ASDIRECTED [facility] Last Admin: 05/21/20 17:02 Dose: 75 mls/hr Documented by: Lorazepam (Lorazepam 2 Mg/Ml Sdv) 0.5 mg IVPUSH ONETIME ONE Stop: 05/19/20 17:16 Last Admin: 05/19/20 17:26 Dose: 0.5 mg Documented by: Ondansetron HCl (Ondansetron 4 Mg/2 Ml Sdv) 4 mg IVPUSH ONETIME ONE Stop: 05/19/20 15:28 Last Admin: 05/19/20 15:47 Dose: 4 mg Documented by: Potassium Chloride (Potassium Chloride 20 Meq Tab.Er) 40 meq PO ONETIME ONE Stop: 05/21/20 09:31 Last Admin: 05/21/20 11:08 Dose: 40 meq Documented by: - Exam General: Reports: Alert, Oriented, Cooperative, No Acute Distress Lungs: Reports: Clear to Auscultation, Normal Respiratory Effort Cardiovascular: Reports: Regular Rate, Regular Rhythm, No Murmurs GI/Abdominal Exam: Soft, Non-Tender, No Organomegaly, No Distention Extremities: Other (Normal residual cellulitis lower leg)
[2020-05-23 12:11] LABS: LYME IGG/IGM AB <0.91 ISR (0.00-0.90)
[2020-05-23 15:11] LABS: BABESIA MICROTI IGG <1:10 (Neg:<1:10); BABESIA MICROTI IGM <1:10 (Neg:<1:10)
[2020-05-24 14:10] LABS: HGE IGM TITER Negative (Neg:<1:20)
== END 2020-05-22 12:15 | disposition home or self-care (01) | DRG 603 ==
LOC: JP.ED 13:21 → JP.MS 18:51
PROVIDERS: ADMIT Internal Medicine; ATTEND Hospitalist
DX: R65.10 Systemic inflammatory response syndrome (SIRS) of non-infectious origin without acute organ dysfunction (principal); L03.115 Cellulitis of right lower limb; H54.7 Unspecified visual loss; N17.9 Acute kidney failure, unspecified; M19.90 Unspecified osteoarthritis, unspecified site; R19.7 Diarrhea, unspecified; Z79.899 Other long term (current) drug therapy; Z88.1 Allergy status to other antibiotic agents; Z88.8 Allergy status to other drugs, medicaments and biological substances; Z88.6 Allergy status to analgesic agent; K59.00 Constipation, unspecified; Z90.49 Acquired absence of other specified parts of digestive tract; I10 Essential (primary) hypertension; Z86.73 Personal history of transient ischemic attack (TIA), and cerebral infarction without residual deficits; Z20.822 Contact with and (suspected) exposure to COVID-19
CPT/HCPCS: 0241U; 36415; 71045; 74176; 80048; 80053; 81001; 83605; 83690; 84145; 84484; 85025; 85027; 86140; 86618; 86666; 86753; 87040; 94762; 96365; 96375; 97162; 97530; 99285; 99222; 99232; 99238; A9270-GY; J0131; J0690; J0696; J0744; J1170; J2060; J2405; J2543; J3010; J3490; J7030; J7120

== ENCOUNTER 2020-05-23 18:47 | Observation (INO) | payer MEDICARE, BC ==
--- NOTE | 2020-05-23 18:59 | EDM.PDOC ---
ED HPI GENERAL MEDICAL PROBLEM - General Chief Complaint: Chest Pain Stated Complaint: [facility] Time Seen by Provider: 05/23/20 18:55 Source of Information: Reports: Patient, EMS, Old Records, RN History Limitations: Reports: No Limitations - History of Present Illness INITIAL COMMENTS - FREE TEXT/NARRATIVE: 79 yo female here with a spell of total body weakness, transient chest pain, and a mild TOWNSEND with some mild nausea and vertigo if she turns her head. Has not vomited. Chest pain is gone. No SOB. Was discharged just yesterday after an admission here for leg cellulitis. Has been urinating often and large volumes since discharge. No fever or chills. Is still on cephalexin. Lives with family, here via EMS. Onset: Today, Sudden Onset Date: 05/23/20 Duration: Hour(s):, Constant Location: Reports: Head, Chest (resolved), Generalized Quality: Reports: Ache (mild headache), Pressure (chest, now gone) Severity: Mild Improves with: Reports: None Worsens with: Reports: Other (unsure) Context: Reports: Other (See HPI) Associated Symptoms: Reports: Chest Pain (mild tightness, resolved), Headaches (mild), Malaise, Nausea/Vomiting (mild nausea, no vomiting), Weakness (generalized). 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 Report Headache Pain Score (Numeric/FACES): 4 - Related Data Allergies Allergy/AdvReac Type Severity Reaction Status Date / Time erythromycin base Allergy Rash Verified 05/23/20 18:57 [Erythromycin Base] naproxen Allergy Rash Verified 05/23/20 18:57 acetaminophen AdvReac Nausea and Verified 05/23/20 18:57 [From Darvocet-N 100] Vomiting oxycodone [Oxycodone] AdvReac Nausea and Verified 05/23/20 18:57 Vomiting propoxyphene napsylate AdvReac Nausea and Verified 05/23/20 18:57 [From Darvocet-N 100] Vomiting Home Meds: Home Meds *[id number] Vitamin D 200 1 tab PO DAILY 12/08/12 [History] Alendronate Sodium [Alendronate] 70 mg PO Q7D 12/08/12 [History] Aspirin [Adult Low Dose Aspirin EC] 81 mg PO DAILY 12/08/12 [History] Fluticasone Propionate [Flonase] 2 spray INH DAILY 12/08/12 [History] Folic Acid 0.4 mg PO DAILY 12/08/12 [History] Metoprolol Tartrate [Lopressor] 50 mg PO BID 12/08/12 [History] Multivitamin [Multivitamins] 1 each PO DAILY 12/08/12 [History] cephALEXin [Cephalexin] 500 mg PO TID #15 tablet 05/22/20 [Rx] Mirtazapine 15 mg PO DAILY 05/23/20 [History] Past Medical History HEENT History: Reports: Impaired Vision 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: Reports: Hypertension SUBSTANCE 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 has two children.) ED ROS GENERAL - Review of Systems Review Of Systems: See Below Constitutional: Reports: Malaise, Weakness HEENT: Reports: No Symptoms Respiratory: Reports: No Symptoms Cardiovascular: Reports: Chest Pain (resolved mild pressure) Endocrine: Denies: High Glucose GI/Abdominal: Reports: Nausea. Denies: Abdominal Pain, Bloody Stool, Constipation, Distension, Hematemesis, Hematochezia, Vomiting : Reports: Frequency. Denies: Dysuria Musculoskeletal: Reports: No Symptoms Skin: Reports: No Symptoms Neurological: Reports: No Symptoms Psychiatric: Reports: No Symptoms ED EXAM, GENERAL - Physical Exam Exam: See Below Exam Limited By: No Limitations General Appearance: Alert, WD/WN, No Apparent Distress Eye Exam: Bilateral Eye: Normal Inspection Ears: Normal External Exam, Normal Canal, Hearing Grossly Normal, Normal TMs Ear Exam: Bilateral Ear: Auricle Normal, Canal Normal, TM normal Nose: Normal Inspection, No Blood Throat/Mouth: Normal Inspection, Normal Lips, Normal Oropharynx, Normal Voice, No Airway Compromise Head: Atraumatic, Normocephalic Neck: Normal Inspection Respiratory/Chest: No Respiratory Distress, Lungs Clear, Normal Breath Sounds, No Accessory Muscle Use Cardiovascular: Regular Rate, Rhythm, No Edema GI/Abdominal: Normal Bowel Sounds, Soft, Non-Tender, No Distention Back Exam: Normal Inspection Extremities: Normal Inspection, Normal Range of Motion, Non-Tender, Pedal Edema (trace both LE's). No: Redness (cellulitis barely present R lower leg) Neurological: Alert, Oriented, CN II-XII Intact, Normal Cognition, No Motor/Sensory Deficits Psychiatric: Flat Affect Skin Exam: Warm, Dry, Intact, Normal Color, No Rash, Erythema (subtle redness without warmth to the R lower leg) #1 Interpretation EKG Date: 05/23/20 Time: 18:55 Rhythm: NSR Rate (Beats/Min): 78 Arab[place]: Normal P-Wave: Present QRS: Normal ST-T: Normal QT: Normal Comparison: No Change Course - Vital Signs Text/Narrative:: Mary Hurley called @ 2147h Last Recorded V/S: Last Vital Signs Temp 36.7 C 05/23/20 19:02 Pulse 72 05/23/20 19:13 Resp 14 05/23/20 19:02 BP 178/73 H 05/23/20 19:13 Pulse Ox 97 05/23/20 19:02 - Orders/Labs/Meds Orders: Active Orders 24 hr Category Date Time Status EKG Documentation Completion [RC] ASDIRECTED Care 05/23/20 19:04 Active EKG 12 Lead [EK] Routine Ther 05/23/20 19:04 Ordered Labs: Laboratory Tests 05/23/20 05/23/20 05/23/20 Range/Units 19:15 19:15 19:55 WBC 7.7 (4.5-11.0) K/uL RBC 4.52 (3.30-5.50) M/uL Hgb 13.0 (12.0-15.0) g/dL Hct 40.4 (36.0-48.0) % MCV 89 (80-98) fL MCH 29 (27-31) pg MCHC 32 (32-36) % Plt Count 235 (150-400) K/uL Sodium 148 (140-148) mmol/L Potassium 4.0 (3.6-5.2) mmol/L Chloride 106 (100-108) mmol/L Carbon Dioxide 26 (21-32) mmol/L Anion Gap 15.8 H (5.0-14.0) mmol/L BUN 13 (7-18) mg/dL Creatinine 1.0 (0.6-1.0) mg/dL Est Cr Clr Drug Dosing 37.12 mL/min Estimated GFR (MDRD) 53 L (>60) Glucose 95 (74-106) mg/dL Calcium 9.7 D (8.5-10.1) mg/dL Troponin I < 0.017 (0.000-0.056) ng/mL Urine Color Yellow (YELLOW) Urine Appearance Clear (CLEAR) Urine pH 5.5 (5.0-8.0) Ur Specific [place] 1.015 (1.008-1.030) Urine Protein Negative (NEGATIVE) mg/dL Urine Glucose (UA) Negative (NEGATIVE) mg/dL Urine Ketones Negative (NEGATIVE) mg/dL Urine Occult Blood Small H (NEGATIVE) Urine Nitrite Negative (NEGATIVE) Urine Bilirubin Negative (NEGATIVE) Urine Urobilinogen 0.2 (0.2-1.0) EU/dL Ur Leukocyte Esterase Negative (NEGATIVE) Urine RBC 0-5 (0-5) Urine WBC 0-5 (0-5) Ur Epithelial Cells Occasional Amorphous Sediment Occasional Urine Bacteria Rare Urine Mucus Rare Meds: Medications Discontinued Medications Generic Name Dose Route Start Last Admin Trade Name Freq PRN Reason Stop Dose Admin Acetaminophen 1,000 mg 05/23/20 19:02 05/23/20 19:13 Acetaminophen 500 Mg Tab PO 05/23/20 19:03 1,000 mg ONETIME ONE Administration Meclizine HCl 25 mg 05/23/20 19:06 05/23/20 19:13 Meclizine 25 Mg Tab PO 05/23/20 19:07 25 mg ONETIME ONE Administration Metoprolol Tartrate 25 mg 05/23/20 19:01 05/23/20 19:13 Metoprolol Tartrate 25 Mg Tab PO 05/23/20 19:02 25 mg ONETIME ONE Administration - Radiology Interpretation Free Text/Narrative:: Head CT scan- Impression: No acute intracranial process. Please note that all CT scans at this facility use dose modulation, iterative reconstruction, and/or weight-based dosing when appropriate to reduce radiation dose to as low as reasonably achievable. Dictated by Marta Guido MD @ May 23 2020 9:19PM CT Results Date: 05/23/20 CT Results Time: 21:46 Departure - Departure Time of Disposition: 22:10 Disposition: Home, Self-Care 01 Condition: Fair Clinical Impression: Weakness Referrals: PCP,None [Primary Care Provider] - Forms: ED Department Discharge Sepsis Event Note (ED) - Focused Exam Vital Signs: Vital Signs Temp Pulse Pulse Resp BP BP Pulse Ox 05/23/20 19:13 72 178/73 H 05/23/20 19:02 36.7 C 96 14 178/63 H 97 05/23/20 18:58 36.7 C 96 14 178/63 H 97 - My Orders Last 24 Hours: My Active Orders 05/23/20 19:04 EKG Documentation Completion [RC] ASDIRECTED EKG 12 Lead [EK] Routine - Assessment/Plan Last 24 Hours: My Active Orders 05/23/20 19:04 EKG Documentation Completion [RC] ASDIRECTED EKG 12 Lead [EK] Routine
[2020-05-23] MEDS ORDERED: Metoprolol Tartrate 25 MG Tab PO ONE (19:01)
[2020-05-23] MEDS ORDERED: Acetaminophen 500 MG Tab PO ONE (19:02)
[2020-05-23] MEDS ORDERED: Meclizine 25 MG Tab PO ONE (19:06)
--- NOTE | 2020-05-23 21:20 | CRLCT ---
Indication: Sudden onset generalized weakness, mild headache Technique: Nonenhanced axial CT imaging through the head. Sagittal and coronal reconstructions are provided. Comparison: CT head without contrast 05/22/2016 Findings: There is no intracranial hemorrhage, edema, or mass effect. Camacho-white matter differentiation is preserved. The ventricles are normal in size. The basal cisterns are patent. The calvarium is intact. The visualized paranasal sinuses and mastoid air cells are aerated. Impression: No acute intracranial process. Please note that all CT scans at this facility use dose modulation, iterative reconstruction, and/or weight-based dosing when appropriate to reduce radiation dose to as low as reasonably achievable. Dictated by Marta Guido MD @ May 23 2020 9:19PM Signed by Dr. Marta Guido @ May 23 2020 9:19PM
--- NOTE | 2020-05-23 22:43 | PCM.HP.2 ---
H&P History of Present Illness - General Date of Service: 05/23/20 Admit Problem/Dx: Admission Diagnosis/Problem Admission Diagnosis/Problem Weakness Source of Information: Patient, Family (Daughter Samantha) History Limitations: Reports: No Limitations - History of Present Illness Initial Comments - Free Text/Narative: Chief Complaint: Weakness This is a 79 year old female present to the ER via Ambulance with concerns of a sudden onset of profound weakness. She was hospitalized at [facility] on May 19 to May 22, 2020. She reports after discharge to home was doing well until she became suddenly ill. Reports feeling flushed, weak. At the ER noted her right leg looks red and increased swelling. denies any fever, chills, nausea, vomiting. still with daily loose stool. Onset of Symptoms: Reports: Today Duration of Symptoms: Reports: Hour(s): Location: Reports: Generalized (weakness) Quality: Reports: Same as Previous Episode Improves with: Reports: Rest Worsens with: Reports: Movement Context: Reports: Other (recent admission to hospital) Associated Symptoms: Reports: Weakness Headache Pain Score (Numeric/FACES): 4 - Related Data Allergies/Adverse Reactions: Allergies Allergy/AdvReac Type Severity Reaction Status Date / Time erythromycin base Allergy Rash Verified 05/23/20 18:57 [Erythromycin Base] naproxen Allergy Rash Verified 05/23/20 18:57 acetaminophen AdvReac Nausea and Verified 05/23/20 18:57 [From Darvocet-N 100] Vomiting oxycodone [Oxycodone] AdvReac Nausea and Verified 05/23/20 18:57 Vomiting propoxyphene napsylate AdvReac Nausea and Verified 05/23/20 18:57 [From Darvocet-N 100] Vomiting Home Medications: Home Meds *[id number] Vitamin D 200 1 tab PO DAILY 12/08/12 [History] Alendronate Sodium [Alendronate] 70 mg PO Q7D 12/08/12 [History] Aspirin [Adult Low Dose Aspirin EC] 81 mg PO DAILY 12/08/12 [History] Fluticasone Propionate [Flonase] 2 spray INH DAILY 12/08/12 [History] Folic Acid 0.4 mg PO DAILY 12/08/12 [History] Metoprolol Tartrate [Lopressor] 50 mg PO BID 10/30/13 [History] Multivitamin [Multivitamins] 1 each PO DAILY 12/08/12 [History] cephALEXin [Cephalexin] 500 mg PO TID #15 tablet 05/22/20 [Rx] Mirtazapine 15 mg PO DAILY 05/23/20 [History] Past Medical History HEENT History: Reports: Impaired Vision 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: Reports: Hypertension 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: Musculoskeletal History: Reports: Arthritis Neurological History: Reports: Migraines, TIA, Vertigo Dermatologic History: Reports: Cellulitis - Infectious Disease History Infectious Disease History: Reports: Chicken Pox, Measles, Mumps - Past Surgical History GI Surgical History: Reports: Cholecystectomy Social & Family History - Family History Family Medical History: No Pertinent Family History - Tobacco Use Tobacco Use Status *Q: Never Tobacco User - Caffeine Use Caffeine Use: Reports: None - Recreational Drug Use Recreational Drug Use: No - Living Situation & Occupation Living situation: Reports: , with Family Occupation: Retired (lives with Sid in [place], [place]. has two chi ldren.) H&P Review of Systems - Review of Systems: Review Of Systems: See Below General: Reports: Malaise, Weakness, Fatigue, Decreased Appetite HEENT: Reports: No Symptoms Pulmonary: Reports: No Symptoms Cardiovascular: Reports: No Symptoms Gastrointestinal: Reports: Diarrhea Genitourinary: Reports: No Symptoms Musculoskeletal: Reports: Other (right lower leg with redness and edema.) Skin: Reports: Erythema (right lower leg) Psychiatric: Reports: No Symptoms Neurological: Reports: No Symptoms Hematologic/Lymphatic: Reports: No Symptoms Immunologic: Reports: No Symptoms Exam - Exam Exam: See Below - Vital Signs Vital Signs: Last Vital Signs Temp 98.1 F 05/23/20 19:02 Pulse 72 05/23/20 19:13 Resp 14 05/23/20 19:02 BP 178/73 H 05/23/20 19:13 Pulse Ox 97 05/23/20 19:02 Weight: 192 lb - Exam Quality Assessment: DVT Prophylaxis, Other (redness of right lower leg) General: Alert, Oriented, Cooperative HEENT: PERRLA, Conjunctiva Clear, EOMI, Hearing Intact, Mucosa Moist & [place] Neck: Supple, Trachea Midline, 2 Lungs: Clear to Auscultation, Normal Respiratory Effort Cardiovascular: Regular Rate, Regular Rhythm GI/Abdominal Exam: Normal Bowel Sounds, Soft, Non-Tender, No Organomegaly, No Distention, No Abnormal Bruit, No Mass, Pelvis Stable (Female) Exam: Deferred Rectal (Female) Exam: Deferred Back Exam: Normal Inspection, Full Range of Motion, NT Extremities: Normal Range of Motion, Non-Tender, Pedal Edema (bilateral lower leg edema), Slow Capillary Refill, Increased Warmth (right lower leg), Redness (right lower leg) Skin: Warm, Dry, Intact, Ecchymosis (right lower leg and foot with redness and discoloration. area is marked with pen for continue evaluation ) Neurological: Cranial Nerves Intact, Reflexes Equal Bilateral Neuro Extensive - Mental Status: Alert, Oriented x3, Normal Mood/Affect, Normal Cognition Neuro Extensive - Motor, Sensory, Reflexes: CN II-XII Intact, Normal Gait, Normal Reflexes Psychiatric: Alert, Normal Affect, Normal Mood - Patient Data Lab Results Last 24 hrs: Laboratory Results - last 24 hr 05/23/20 05/23/20 05/23/20 Range/Units 19:15 19:15 19:55 WBC 7.7 (4.5-11.0) K/uL RBC 4.52 (3.30-5.50) M/uL Hgb 13.0 (12.0-15.0) g/dL Hct 40.4 (36.0-48.0) % MCV 89 (80-98) fL MCH 29 (27-31) pg MCHC 32 (32-36) % Plt Count 235 (150-400) K/uL Sodium 148 (140-148) mmol/L Potassium 4.0 (3.6-5.2) mmol/L Chloride 106 (100-108) mmol/L Carbon Dioxide 26 (21-32) mmol/L Anion Gap 15.8 H (5.0-14.0) mmol/L BUN 13 (7-18) mg/dL Creatinine 1.0 (0.6-1.0) mg/dL Est Cr Clr Drug Dosing 37.12 mL/min Estimated GFR (MDRD) 53 L (>60) Glucose 95 (74-106) mg/dL Calcium 9.7 D (8.5-10.1) mg/dL Troponin I < 0.017 (0.000-0.056) ng/mL Urine Color Yellow (YELLOW) Urine Appearance Clear (CLEAR) Urine pH 5.5 (5.0-8.0) Ur Specific [place] 1.015 (1.008-1.030) Urine Protein Negative (NEGATIVE) mg/dL Urine Glucose (UA) Negative (NEGATIVE) mg/dL Urine Ketones Negative (NEGATIVE) mg/dL Urine Occult Blood Small H (NEGATIVE) Urine Nitrite Negative (NEGATIVE) Urine Bilirubin Negative (NEGATIVE) Urine Urobilinogen 0.2 (0.2-1.0) EU/dL Ur Leukocyte Esterase Negative (NEGATIVE) Urine RBC 0-5 (0-5) Urine WBC 0-5 (0-5) Ur Epithelial Cells Occasional Amorphous Sediment Occasional Urine Bacteria Rare Urine Mucus Rare Result Diagrams: 05/23/20 19:15 05/23/20 19:15 Sepsis Event Note - Evaluation Sepsis Screening Result: No Definite Risk - Focused Exam Vital Signs: Vital Signs Temp Pulse Pulse Resp BP BP Pulse Ox 05/23/20 19:13 72 178/73 H 05/23/20 19:02 98.1 F 96 14 178/63 H 97 05/23/20 18:58 98.1 F 96 14 178/63 H 97 - Problem List (1) Weakness SNOMED Code(s): 15403016 ICD Code: R53.1 - WEAKNESS Status: Acute Priority: High Current Visit: Yes (2) Cellulitis and abscess of right lower extremity SNOMED Code(s): 081737757 ICD Code: L03.115 - CELLULITIS OF RIGHT LOWER LIMB; L02.415 - CUTANEOUS ABSCESS OF RIGHT LOWER LIMB Status: Acute Priority: High Current Visit: Yes (3) Hypertension SNOMED Code(s): 12915939 ICD Code: I10 - ESSENTIAL (PRIMARY) HYPERTENSION Status: Acute Priority: High Current Visit: Yes Qualifiers: Hypertension type: essential hypertension Qualified Code(s): I10 - Essential (primary) hypertension Problem List Initiated/Reviewed/Updated: Yes Orders Last 24hrs: Active Orders 24 hr Category Date Time Status Patient Status Manage Transfer [TRANSFER] Routine ADT 05/23/20 22:20 Active EKG Documentation Completion [RC] ASDIRECTED Care 05/23/20 19:04 Active Resuscitation Status Routine Resus Stat 05/23/20 22:26 Ordered EKG 12 Lead [EK] Routine Ther 05/23/20 19:04 Ordered Assessment/Plan Comment:: ASSESSMENT / PLAN - WEAKNESS, RIGHT LOWER LEG CELLULITIS, HYPERTENSION This is a 79 year old female present to the ER via Ambulance with concerns of a sudden onset of profound weakness. She was hospitalized at [facility] on May 19 to May 22, 2020. She reports after discharge to home was doing well until she became suddenly ill. Reports feeling flushed, weak. At the ER noted her right leg looks red and increased swelling. denies any fever, chills, nausea, vomiting. still with daily loose stool. ER evaluation: Vital signs note elevated blood pressure B/P 178/63 - medications given Metoprolol 25 mg po at 190, Meclizine 25 mg po at 190, Tylenol 1000 mg po at 190. She did improved with medication, but doesn't feel safe going home. CT of Head - no acute process. Labs-CBC WBC 7.7, Hgb 13.0, HCT 40.4, plt 235 Chemistries normal range cr 1.0. bun 13 Will plan to admit OBS to treat symptoms and reassess in am. Weakness - Will plan to admit OBS to treat symptoms and reassess in am. -IV hydration with NS at 75 ml/hr -medication for nausea and vomiting -telemetry -reassessment in am Right lower leg cellulitis -IV Zoysn 4.5 gm every 6 hours -labs CRP pending Hypertension -continue outpatient medication therapy Maintenance issues -Orders home medication reviewed and ordered -Nutrition: Regular diet -De Souza catheter not indicated at this time -DVT- Lovenox 30mg subcut daily -GI Prophylaxis- IV Protonix 40mg daily -Spiritual consult CODE STATUS: Full Admission status: Admit to Observation -I expect this patient to stay less than 24 hours, not to exceed 96 hours for evaluation and management of this problem. Disposition: home with family Primary care provider: Dr. Allison Hospitalist: Dr. Cifuentes - Mortality Measure Prognosis:: Good
[2020-05-23] MEDS ORDERED: Docusate Sodium 100 MG Cap PO PRN (23:02)
[2020-05-23] MEDS ORDERED: Sodium Chloride 0.9% 1,000 ML IV SCH (23:02)
[2020-05-23] MEDS ORDERED: Bisacodyl 5 MG Tab PO PRN (23:02)
[2020-05-23] MEDS ORDERED: Albuterol 0.083% 2.5 MG/3 ML Neb Soln NEB PRN (23:02)
[2020-05-23] MEDS ORDERED: Enoxaparin 30 MG/0.3 ML Syringe SUBCUT SCH (23:02)
[2020-05-23] MEDS ORDERED: Mirtazapine 15 MG Tab PO SCH (23:02)
[2020-05-23] MEDS ORDERED: Ondansetron 4 MG/2 ML SDV IV PRN (23:02)
[2020-05-23] MEDS ORDERED: Morphine 2 MG/ML SYRINGE IVPUSH PRN (23:02)
[2020-05-23] MEDS ORDERED: Piperacillin/Tazobactam 4.5 GM in Sodium Chloride 0.9% 100 ML IV SCH (23:02)
[2020-05-23] MEDS ORDERED: Albuterol/Ipratropium 3.0-0.5 MG/3 ML Neb Soln NEB PRN (23:02)
[2020-05-23] MEDS ORDERED: Ondansetron 4 MG Tab.DIS PO PRN (23:02)
[2020-05-23] MEDS: Piperacillin/Tazobactam 2.25 GM in Sodium Chloride 0.9% 50 ML IV SCH (23:31)
[2020-05-23] MEDS: Enoxaparin 40 MG/0.4 ML Syringe SUBCUT SCH (23:34)
[2020-05-23] MEDS: Pantoprazole 40 MG Vial IV SCH (23:37)
[2020-05-24] MEDS: Piperacillin/Tazobactam 2.25 GM in Sodium Chloride 0.9% 50 ML IV SCH (05:19)
[2020-05-24] MEDS ORDERED: Non-Formulary Medication 1 Each (Folic Acid [Folic Acid] 0.4 MG Tablet) PO SCH (09:00)
[2020-05-24] MEDS: Acetaminophen 325 MG Tab PO PRN (10:09)
[2020-05-24] MEDS: Piperacillin/Tazobactam/Dext 2.25 GM in Premix Bag 1 BAG IV SCH ×3 (10:09→21:37)
[2020-05-24] MEDS: Folic Acid 1 MG Tab PO SCH (12:49)
[2020-05-24] MEDS: Metoprolol Tartrate 50 MG Tab (PTOM) PO SCH ×2 (12:49→20:20)
--- NOTE | 2020-05-24 14:12 | PCM.PN ---
- General Info Date of Service: 05/24/20 Subjective Update: Ms. Gibson is an 79-year-old woman who was admitted to observation status through the emergency department after she experienced an episode of profound weakness at home. She had been recently hospitalized here with cellulitis of her right lower extremity. That had improved significantly and there was no evidence of significant recurrence when she was brought in last night. Vital signs have remained stable and she has been afebrile. Functional Status: Reports: Tolerating Diet, Urinating - Review of Systems General: Reports: Weakness, Fatigue. Denies: Fever, Chills Pulmonary: Reports: Shortness of Breath. Denies: Pleuritic Chest Pain, Cough, Sputum, Hemoptysis, Wheezing Cardiovascular: Reports: Dyspnea on Exertion, Edema. Denies: Chest Pain, Palpitations, Orthopnea, PND, Lightheadedness Gastrointestinal: Reports: No Symptoms - Patient Data Vitals - Most Recent: Last Vital Signs Temp 97.8 F 05/24/20 12:40 Pulse 87 05/24/20 12:49 Resp 17 05/24/20 12:40 BP 115/37 L 05/24/20 12:49 Pulse Ox 99 05/24/20 13:26 Weight - Most Recent: 192 lb 0.362 oz I&O - Last 24 Hours: Intake & Output 05/23/20 05/24/20 05/24/20 22:59 06:59 14:59 Intake Total 498 325 Output Total 300 Balance 498 25 Lab Results Last 24 Hours: Laboratory Results - last 24 hr 05/23/20 05/23/20 05/23/20 Range/Units 19:15 19:15 19:55 WBC 7.7 (4.5-11.0) K/uL RBC 4.52 (3.30-5.50) M/uL Hgb 13.0 (12.0-15.0) g/dL Hct 40.4 (36.0-48.0) % MCV 89 (80-98) fL MCH 29 (27-31) pg MCHC 32 (32-36) % Plt Count 235 (150-400) K/uL Sodium 148 (140-148) mmol/L Potassium 4.0 (3.6-5.2) mmol/L Chloride 106 (100-108) mmol/L Carbon Dioxide 26 (21-32) mmol/L Anion Gap 15.8 H (5.0-14.0) mmol/L BUN 13 (7-18) mg/dL Creatinine 1.0 (0.6-1.0) mg/dL Est Cr Clr Drug Dosing 37.12 mL/min Estimated GFR (MDRD) 53 L (>60) Glucose 95 (74-106) mg/dL Lactic Acid (0.4-2.0) mmol/L Calcium 9.7 D (8.5-10.1) mg/dL Troponin I < 0.017 (0.000-0.056) ng/mL C-Reactive Protein (0.0-0.3) mg/dL Urine Color Yellow (YELLOW) Urine Appearance Clear (CLEAR) Urine pH 5.5 (5.0-8.0) Ur Specific [place] 1.015 (1.008-1.030) Urine Protein Negative (NEGATIVE) mg/dL Urine Glucose (UA) Negative (NEGATIVE) mg/dL Urine Ketones Negative (NEGATIVE) mg/dL Urine Occult Blood Small H (NEGATIVE) Urine Nitrite Negative (NEGATIVE) Urine Bilirubin Negative (NEGATIVE) Urine Urobilinogen 0.2 (0.2-1.0) EU/dL Ur Leukocyte Esterase Negative (NEGATIVE) Urine RBC 0-5 (0-5) Urine WBC 0-5 (0-5) Ur Epithelial Cells Occasional Amorphous Sediment Occasional Urine Bacteria Rare Urine Mucus Rare 05/23/20 05/23/20 Range/Units 23:02 23:02 WBC (4.5-11.0) K/uL RBC (3.30-5.50) M/uL Hgb (12.0-15.0) g/dL Hct (36.0-48.0) % MCV (80-98) fL MCH (27-31) pg MCHC (32-36) % Plt Count (150-400) K/uL Sodium (140-148) mmol/L Potassium (3.6-5.2) mmol/L Chloride (100-108) mmol/L Carbon Dioxide (21-32) mmol/L Anion Gap (5.0-14.0) mmol/L BUN (7-18) mg/dL Creatinine (0.6-1.0) mg/dL Est Cr Clr Drug Dosing mL/min Estimated GFR (MDRD) (>60) Glucose (74-106) mg/dL Lactic Acid 1.5 (0.4-2.0) mmol/L Calcium (8.5-10.1) mg/dL Troponin I (0.000-0.056) ng/mL C-Reactive Protein 3.78 H (0.0-0.3) mg/dL Urine Color (YELLOW) Urine Appearance (CLEAR) Urine pH (5.0-8.0) Ur Specific [place] (1.008-1.030) Urine Protein (NEGATIVE) mg/dL Urine Glucose (UA) (NEGATIVE) mg/dL Urine Ketones (NEGATIVE) mg/dL Urine Occult Blood (NEGATIVE) Urine Nitrite (NEGATIVE) Urine Bilirubin (NEGATIVE) Urine Urobilinogen (0.2-1.0) EU/dL Ur Leukocyte Esterase (NEGATIVE) Urine RBC (0-5) Urine WBC (0-5) Ur Epithelial Cells Amorphous Sediment Urine Bacteria Urine Mucus Med Orders - Current: Current Medications Acetaminophen (Acetaminophen 325 Mg Tab) 650 mg PO Q4H PRN PRN Reason: Pain (Mild 1-3)/fever Last Admin: 05/24/20 10:09 Dose: 650 mg Documented by: Albuterol (Albuterol 0.083% 2.5 Mg/3 Ml Neb Soln) 2.5 mg NEB Q4H PRN PRN Reason: Shortness Of Breath/wheezing Albuterol/Ipratropium (Albuterol/Ipratropium 3.0-0.5 Mg/3 Ml Neb Soln) 3 ml NEB QID PRN PRN Reason: Shortness Of Breath/wheezing Last Admin: 05/24/20 06:35 Dose: 3 ml Documented by: Bisacodyl (Bisacodyl 5 Mg Tab) 5 mg PO DAILY PRN PRN Reason: Constipation Docusate Sodium (Docusate Sodium 100 Mg Cap) 100 mg PO BID PRN PRN Reason: Constipation Enoxaparin Sodium (Enoxaparin 40 Mg/0.4 Ml Syringe) 40 mg SUBCUT BEDTIME [facility] Last Admin: 05/23/20 23:34 Dose: 40 mg Documented by: Folic Acid (Folic Acid 1 Mg Tab) 0.5 mg PO DAILY [facility] Last Admin: 05/24/20 12:49 Dose: 0.5 mg Documented by: Piperacillin/Tazobactam/ (Dextrose 2.25 gm/ Premix) 50 mls @ 100 mls/hr IV Q6H [facility] Last Admin: 05/24/20 10:09 Dose: 100 mls/hr Documented by: Metoprolol Tartrate (Metoprolol Tartrate 50 Mg Tab (Ptom)) 50 mg PO BID [facility] Last Admin: 05/24/20 12:49 Dose: 50 mg Documented by: Mirtazapine (Mirtazapine 15 Mg Tab (Ptom)) 7.5 mg PO BEDTIME [facility] Morphine Sulfate (Morphine 2 Mg/Ml Syringe) 2 mg IVPUSH Q2H PRN PRN Reason: Pain (severe 7-10) Ondansetron HCl (Ondansetron 4 Mg Tab.Dis) 4 mg PO Q6H PRN PRN Reason: Nausea able to take PO Ondansetron HCl (Ondansetron 4 Mg/2 Ml Sdv) 4 mg IV Q4H PRN PRN Reason: Nausea/Vomiting Pantoprazole Sodium (Pantoprazole 40 Mg Vial) 40 mg IV BEDTIME [facility] Last Admin: 05/23/20 23:37 Dose: 40 mg Documented by: Discontinued Medications Acetaminophen (Acetaminophen 500 Mg Tab) 1,000 mg PO ONETIME ONE Stop: 05/23/20 19:03 Last Admin: 05/23/20 19:13 Dose: 1,000 mg Documented by: Sodium Chloride (Normal Saline) 1,000 mls @ 75 mls/hr IV ASDIRECTED [facility] Last Admin: 05/23/20 23:26 Dose: 75 mls/hr Documented by: Piperacillin Sod/Tazobactam (Sod 4.5 gm/ Sodium Chloride) 100 mls @ 200 mls/hr IV Q6H [facility] Last Admin: 05/23/20 23:37 Dose: Not Given Documented by: Piperacillin Sod/Tazobactam (Sod 2.25 gm/ Sodium Chloride) 50 mls @ 100 mls/hr IV Q6H [facility] Last Admin: 05/24/20 05:19 Dose: 100 mls/hr Documented by: Meclizine HCl (Meclizine 25 Mg Tab) 25 mg PO ONETIME ONE Stop: 05/23/20 19:07 Last Admin: 05/23/20 19:13 Dose: 25 mg Documented by: Metoprolol Tartrate (Metoprolol Tartrate 25 Mg Tab) 25 mg PO ONETIME ONE Stop: 05/23/20 19:02 Last Admin: 05/23/20 19:13 Dose: 25 mg Documented by: Mirtazapine (Mirtazapine 15 Mg Tab) 15 mg PO BEDTIME [facility] Last Admin: 05/23/20 23:35 Dose: 15 mg Documented by: - Exam Quality Assessment: DVT Prophylaxis General: Alert, Oriented, Cooperative, Mild Distress Lungs: Clear to Auscultation, Normal Respiratory Effort Cardiovascular: Regular Rate, Regular Rhythm, No Murmurs GI/Abdominal Exam: Soft, Non-Tender, No Organomegaly, No Distention Extremities: Non-Tender, Pedal Edema - Patient Data Lab Results Last 24 hrs: Laboratory Results - last 24 hr 05/23/20 05/23/20 05/23/20 Range/Units 19:15 19:15 19:55 WBC 7.7 (4.5-11.0) K/uL RBC 4.52 (3.30-5.50) M/uL Hgb 13.0 (12.0-15.0) g/dL Hct 40.4 (36.0-48.0) % MCV 89 (80-98) fL MCH 29 (27-31) pg MCHC 32 (32-36) % Plt Count 235 (150-400) K/uL Sodium 148 (140-148) mmol/L Potassium 4.0 (3.6-5.2) mmol/L Chloride 106 (100-108) mmol/L Carbon Dioxide 26 (21-32) mmol/L Anion Gap 15.8 H (5.0-14.0) mmol/L BUN 13 (7-18) mg/dL Creatinine 1.0 (0.6-1.0) mg/dL Est Cr Clr Drug Dosing 37.12 mL/min Estimated GFR (MDRD) 53 L (>60) Glucose 95 (74-106) mg/dL Lactic Acid (0.4-2.0) mmol/L Calcium 9.7 D (8.5-10.1) mg/dL Troponin I < 0.017 (0.000-0.056) ng/mL C-Reactive Protein (0.0-0.3) mg/dL Urine Color Yellow (YELLOW) Urine Appearance Clear (CLEAR) Urine pH 5.5 (5.0-8.0) Ur Specific [place] 1.015 (1.008-1.030) Urine Protein Negative (NEGATIVE) mg/dL Urine Glucose (UA) Negative (NEGATIVE) mg/dL Urine Ketones Negative (NEGATIVE) mg/dL Urine Occult Blood Small H (NEGATIVE) Urine Nitrite Negative (NEGATIVE) Urine Bilirubin Negative (NEGATIVE) Urine Urobilinogen 0.2 (0.2-1.0) EU/dL Ur Leukocyte Esterase Negative (NEGATIVE) Urine RBC 0-5 (0-5) Urine WBC 0-5 (0-5) Ur Epithelial Cells Occasional Amorphous Sediment Occasional Urine Bacteria Rare Urine Mucus Rare 05/23/20 05/23/20 Range/Units 23:02 23:02 WBC (4.5-11.0) K/uL RBC (3.30-5.50) M/uL Hgb (12.0-15.0) g/dL Hct (36.0-48.0) % MCV (80-98) fL MCH (27-31) pg MCHC (32-36) % Plt Count (150-400) K/uL Sodium (140-148) mmol/L Potassium (3.6-5.2) mmol/L Chloride (100-108) mmol/L Carbon Dioxide (21-32) mmol/L Anion Gap (5.0-14.0) mmol/L BUN (7-18) mg/dL Creatinine (0.6-1.0) mg/dL Est Cr Clr Drug Dosing mL/min Estimated GFR (MDRD) (>60) Glucose (74-106) mg/dL Lactic Acid 1.5 (0.4-2.0) mmol/L Calcium (8.5-10.1) mg/dL Troponin I (0.000-0.056) ng/mL C-Reactive Protein 3.78 H (0.0-0.3) mg/dL Urine Color (YELLOW) Urine Appearance (CLEAR) Urine pH (5.0-8.0) Ur Specific [place] (1.008-1.030) Urine Protein (NEGATIVE) mg/dL Urine Glucose (UA) (NEGATIVE) mg/dL Urine Ketones (NEGATIVE) mg/dL Urine Occult Blood (NEGATIVE) Urine Nitrite (NEGATIVE) Urine Bilirubin (NEGATIVE) Urine Urobilinogen (0.2-1.0) EU/dL Ur Leukocyte Esterase (NEGATIVE) Urine RBC (0-5) Urine WBC (0-5) Ur Epithelial Cells Amorphous Sediment Urine Bacteria Urine Mucus Result Diagrams: 04/14/21 19:15 05/23/20 19:15 Sepsis Event Note - Evaluation Sepsis Screening Result: No Definite Risk - Focused Exam Vital Signs: Vital Signs Temp Pulse Pulse Resp BP BP Pulse Ox 05/24/20 13:26 99 05/24/20 12:49 87 115/37 L 05/24/20 12:40 97.8 F 78 17 115/37 L 98 05/24/20 07:46 97.8 F 78 16 147/65 H 98 05/24/20 07:01 98 05/24/20 06:29 71 16 169/62 H 100 05/24/20 05:00 97.8 F 63 18 155/75 H 99 - Problem List Review Problem List Initiated/Reviewed/Updated: Yes - My Orders Last 24 Hours: My Active Orders 05/24/20 10:14 PT Evaluation and Treatment [CONS] Routine 05/24/20 10:15 OT Evaluation and Treatment [CONS] Routine 05/24/20 14:00 Convert IV to Saline Lock [OM.PC] Routine 05/24/20 14:07 Chest 2V [CR] Urgent VL Duplex Lwr Ext Veins Ltd Rt [US] Urgent 05/24/20 14:08 Discontinue Telemetry Monitoring [Cardiac Monitoring Discontinue] [RC] Click to Edit 05/24/20 21:00 Mirtazapine [Remeron] 7.5 mg PO BEDTIME 05/25/20 05:00 BASIC METABOLIC PANEL,BMP [CHEM] Timed - Plan Plan:: ASSESSMENT AND PLAN Weakness - Will plan to admit OBS to treat symptoms and reassess in am. -Saline lock IV -Physical therapy consult -medication for nausea and vomiting -reassessment in am Right lower leg cellulitis-appears to be stable with minimal residual inflammation -IV Zoysn 4.5 gm every 6 hours Hypertension -continue outpatient medication therapy Maintenance issues -Orders home medication reviewed and ordered -Nutrition: Regular diet -De Souza catheter not indicated at this time -DVT- Lovenox 30mg subcut daily -GI Prophylaxis- IV Protonix 40mg daily -Spiritual consult CODE STATUS: Full Admission status: Admit to Observation -I expect this patient to stay less than 24 hours, not to exceed 96 hours for evaluation and management of this problem. Disposition: home with family Primary care provider: Dr. Allison Hospitalist: Dr. Cifuentes
[2020-05-24] MEDS ORDERED: Furosemide 20 MG/2 ML VIAL IVPUSH ONE (15:45)
--- NOTE | 2020-05-24 16:03 | CR ---
CHEST: 2 view CLINICAL HISTORY:Dyspnea COMPARISON:05/19/2020 FINDINGS: Heart size and pulmonary vascularity are normal. Patient is a small left pleural effusion. This appears to be increased slightly since prior study but some of this difference is technical. No infiltrates are seen. Impression: Small left pleural effusion.
[2020-05-24] MEDS: Enoxaparin 40 MG/0.4 ML Syringe SUBCUT SCH (20:20)
[2020-05-24] MEDS: Pantoprazole 40 MG Vial IV SCH (20:21)
[2020-05-24] MEDS ORDERED: MIRTAZAPINE 15 MG PO SCH (21:00)
[2020-05-25 02:58] VITALS: PULSE 68
[2020-05-25] MEDS: Acetaminophen 325 MG Tab PO PRN (03:02)
[2020-05-25] MEDS: Piperacillin/Tazobactam/Dext 2.25 GM in Premix Bag 1 BAG IV SCH ×2 (03:02→09:57)
[2020-05-25 07:32] VITALS: BP 115/83
[2020-05-25] MEDS: Metoprolol Tartrate 50 MG Tab (PTOM) PO SCH (09:56)
[2020-05-25] MEDS: Folic Acid 1 MG Tab PO SCH (09:56)
--- NOTE | 2020-05-25 12:34 | PCM.DCSUM1 ---
Discharge Summary - Hospital Course Brief History: Ms. Gibson is an 79-year-old woman who was admitted observation status through the emergency department following an episode of weakness at home. - Discharge Data Discharge Date: 05/25/20 Discharge Disposition: DC/Tfer to SNF 03 Condition: Fair - Referral to Home Health Primary Care Physician: PCP None - Discharge Diagnosis/Problem(s) (1) Cellulitis SNOMED Code(s): 573885826 ICD Code: L03.90 - CELLULITIS, UNSPECIFIED Status: Acute Current Visit: No (2) Weakness SNOMED Code(s): 82442549 ICD Code: R53.1 - WEAKNESS Status: Acute Priority: High Current Visit: Yes (3) CKD (chronic kidney disease) stage 3, GFR 30-59 ml/min SNOMED Code(s): 635692682 ICD Code: N18.30 - CHRONIC KIDNEY DISEASE, STAGE 3 UNSPECIFIED Status: Chronic Current Visit: No - Patient Summary/Data Consults: Consultations 05/23/20 23:02 Consult to Spiritual Care [CONS] Routine 05/24/20 10:14 PT Evaluation and Treatment [CONS] Routine Please Evaluate and Treat. PT Reason for Consult: Strengthening Pending Discharge: Yes Discharge Disposition: [facility] Special Instructions: [facility] This query below is only for informational purposes and is not editable. Admission Diagnosis/Problem: Weakness 05/24/20 10:15 OT Evaluation and Treatment [CONS] Routine Please Evaluate and Treat. OT Reason for Consult: Discharge Planning Pending Discharge: Yes Discharge Disposition: [facility] Special Instructions: [facility] This query below is only for informational purposes and is not editable. Admission Diagnosis/Problem: Weakness Hospital Course: Ms. Gibson is an 79-year-old woman who was admitted to observation status through the emergency department after she experienced an episode of profound weakness at home. She had been recently hospitalized here with cellulitis of her right lower extremity. That had improved significantly and there was no evidence of significant recurrence when she was brought in last night. Vital signs have remained stable and she has been afebrile. She initially was given IV fluids for hydration, the fluids were discontinued after the first night. She did receive diuretic therapy while hospitalized because of increased edema of her right lower extremity. There was only minimal erythema of the right lower extremity and it was not felt that she had recurrent active cellulitis. Venous Doppler studies were obtained of the right lower extremity and showed no evidence of deep vein thrombosis. Chest x-ray showed no obvious infiltrates or evidence of significant pulmonary edema. No other underlying etiology was identified for her transient weakness. She did have ongoing generalized weakness and was seen and evaluated by physical therapy during her hospital stay. She will be discharged to the group home for restorative physical therapy and Occupational Therapy. Activity will be as tolerated and she will be on a regular diet. Follow-up with primary care will be at the group home as needed. She will be discharged on furosemide 40 mg daily. Follow-up BMP will be obtained on May 29. - Patient Instructions Diet: Usual Diet as Tolerated Activity: As Tolerated Other/Special Instructions: Daily physical therapy and Occupational Therapy while at the group home. Follow-up lab for May 29; BMP. - Discharge Plan *PRESCRIPTION DRUG MONITORING PROGRAM REVIEWED*: Not Applicable *COPY OF PRESCRIPTION DRUG MONITORING REPORT IN PATIENT RAMIRO: Not Applicable Prescriptions/Med Rec: Furosemide 40 mg PO DAILY #30 tablet Home Medications: Home Meds *[id number] Vitamin D 200 1 tab PO DAILY 12/08/12 [History] Alendronate Sodium [Alendronate] 70 mg PO Q7D 12/08/12 [History] Aspirin [Adult Low Dose Aspirin EC] 81 mg PO DAILY 12/08/12 [History] Fluticasone Propionate [Flonase] 2 spray INH DAILY 12/08/12 [History] Folic Acid 0.4 mg PO DAILY 12/08/12 [History] Metoprolol Tartrate [Lopressor] 50 mg PO BID 12/08/12 [History] Multivitamin [Multivitamins] 1 each PO DAILY 12/08/12 [History] Mirtazapine 7.5 mg PO DAILY 05/23/20 [History] Furosemide 40 mg PO DAILY #30 tablet 05/25/20 [Rx] cephALEXin [Cephalexin] 500 mg PO TID #9 tablet 05/25/20 [Rx] Patient Handouts: Cellulitis, Adult, [id number] - Discharge Summary/Plan Comment DC Time >30 min.: No - Patient Data Vitals - Most Recent: Last Vital Signs Temp 96.8 F L 05/25/20 07:29 Pulse 68 05/25/20 09:56 Resp 18 05/25/20 02:57 BP 115/83 05/25/20 09:56 Pulse Ox 94 L 05/25/20 07:29 Weight - Most Recent: 192 lb 0.362 oz I&O - Last 24 hours: Intake & Output 05/24/20 05/25/20 05/25/20 22:59 06:59 14:59 Intake Total 1450 50 480 Output Total 600 100 Balance 850 -50 480 Lab Results - Last 24 hrs: Laboratory Results - last 24 hr 05/25/20 Range/Units 05:52 Sodium 145 (140-148) mmol/L Potassium 4.5 (3.6-5.2) mmol/L Chloride 107 (100-108) mmol/L Carbon Dioxide 32 (21-32) mmol/L Anion Gap 6.1 (5.0-14.0) mmol/L BUN 12 (7-18) mg/dL Creatinine 1.3 H (0.6-1.0) mg/dL Est Cr Clr Drug Dosing 28.54 mL/min Estimated GFR (MDRD) 39 L (>60) Glucose 82 (74-106) mg/dL Calcium 8.9 (8.5-10.1) mg/dL Med Orders - Current: Current Medications Acetaminophen (Acetaminophen 325 Mg Tab) 650 mg PO Q4H PRN PRN Reason: Pain (Mild 1-3)/fever Last Admin: 05/25/20 03:02 Dose: 650 mg Documented by: Albuterol (Albuterol 0.083% 2.5 Mg/3 Ml Neb Soln) 2.5 mg NEB Q4H PRN PRN Reason: Shortness Of Breath/wheezing Albuterol/Ipratropium (Albuterol/Ipratropium 3.0-0.5 Mg/3 Ml Neb Soln) 3 ml NEB QID PRN PRN Reason: Shortness Of Breath/wheezing Last Admin: 05/24/20 06:35 Dose: 3 ml Documented by: Bisacodyl (Bisacodyl 5 Mg Tab) 5 mg PO DAILY PRN PRN Reason: Constipation Docusate Sodium (Docusate Sodium 100 Mg Cap) 100 mg PO BID PRN PRN Reason: Constipation Enoxaparin Sodium (Enoxaparin 40 Mg/0.4 Ml Syringe) 40 mg SUBCUT BEDTIME [facility] Last Admin: 05/24/20 20:20 Dose: 40 mg Documented by: Folic Acid (Folic Acid 1 Mg Tab) 0.5 mg PO DAILY [facility] Last Admin: 05/25/20 09:56 Dose: 0.5 mg Documented by: Piperacillin/Tazobactam/ (Dextrose 2.25 gm/ Premix) 50 mls @ 100 mls/hr IV Q6H [facility] Last Admin: 05/25/20 09:57 Dose: 100 mls/hr Documented by: Metoprolol Tartrate (Metoprolol Tartrate 50 Mg Tab (Ptom)) 50 mg PO BID [facility] Last Admin: 05/25/20 09:56 Dose: 50 mg Documented by: Mirtazapine (Mirtazapine 15 Mg Tab (Ptom)) 7.5 mg PO BEDTIME [facility] Last Admin: 05/24/20 20:21 Dose: 7.5 mg Documented by: Morphine Sulfate (Morphine 2 Mg/Ml Syringe) 2 mg IVPUSH Q2H PRN PRN Reason: Pain (severe 7-10) Ondansetron HCl (Ondansetron 4 Mg Tab.Dis) 4 mg PO Q6H PRN PRN Reason: Nausea able to take PO Ondansetron HCl (Ondansetron 4 Mg/2 Ml Sdv) 4 mg IV Q4H PRN PRN Reason: Nausea/Vomiting Pantoprazole Sodium (Pantoprazole 40 Mg Tab.Cr) 40 mg PO BEDTIME [facility] Discontinued Medications Acetaminophen (Acetaminophen 500 Mg Tab) 1,000 mg PO ONETIME ONE Stop: 05/23/20 19:03 Last Admin: 05/23/20 19:13 Dose: 1,000 mg Documented by: Furosemide (Furosemide 20 Mg/2 Ml Vial) 20 mg IVPUSH NOW ONE Stop: 05/24/20 15:46 Last Admin: 05/24/20 16:59 Dose: 20 mg Documented by: Sodium Chloride (Normal Saline) 1,000 mls @ 75 mls/hr IV ASDIRECTED [facility] Last Admin: 05/23/20 23:26 Dose: 75 mls/hr Documented by: Piperacillin Sod/Tazobactam (Sod 4.5 gm/ Sodium Chloride) 100 mls @ 200 mls/hr IV Q6H [facility] Last Admin: 05/23/20 23:37 Dose: Not Given Documented by: Piperacillin Sod/Tazobactam (Sod 2.25 gm/ Sodium Chloride) 50 mls @ 100 mls/hr IV Q6H [facility] Last Admin: 05/24/20 05:19 Dose: 100 mls/hr Documented by: Meclizine HCl (Meclizine 25 Mg Tab) 25 mg PO ONETIME ONE Stop: 05/23/20 19:07 Last Admin: 05/23/20 19:13 Dose: 25 mg Documented by: Metoprolol Tartrate (Metoprolol Tartrate 25 Mg Tab) 25 mg PO ONETIME ONE Stop: 05/23/20 19:02 Last Admin: 05/23/20 19:13 Dose: 25 mg Documented by: Mirtazapine (Mirtazapine 15 Mg Tab) 15 mg PO BEDTIME [facility] Last Admin: 05/23/20 23:35 Dose: 15 mg Documented by: Pantoprazole Sodium (Pantoprazole 40 Mg Vial) 40 mg IV BEDTIME [facility] Last Admin: 05/24/20 20:21 Dose: 40 mg Documented by: - Exam General: Reports: Alert, Oriented, Cooperative, Mild Distress Lungs: Reports: Clear to Auscultation, Normal Respiratory Effort Cardiovascular: Reports: Regular Rate, Regular Rhythm, No Murmurs GI/Abdominal Exam: Soft, Non-Tender, No Organomegaly, No Distention Extremities: Non-Tender, Pedal Edema
[2020-05-25] MEDS ORDERED: Pantoprazole 40 MG Tab.CR PO SCH (21:00)
--- NOTE | 2020-05-28 09:07 | US ---
VL Duplex Lwr Ext Veins Ltd Rt INDICATION: persisent edema FINDINGS: Ultrasound examination of the lower extremity using Doppler and compressive technique demonstrates that the common femoral, femoral, and popliteal veins are patent, and negative for thrombus. The calf veins were segmentally visualized and are negative where seen. IMPRESSION: Negative for deep venous thrombosis.
== END 2020-05-25 13:05 ==
LOC: JP.ED 18:47 → JP.MS 22:20
PROVIDERS: ADMIT Hospitalist; ATTEND Hospitalist
DX: R53.1 Weakness (principal); L03.115 Cellulitis of right lower limb; L02.415 Cutaneous abscess of right lower limb; I12.9 Hypertensive chronic kidney disease with stage 1 through stage 4 chronic kidney disease, or unspecified chronic kidney disease; N18.30 Chronic kidney disease, stage 3 unspecified; Z88.8 Allergy status to other drugs, medicaments and biological substances; Z79.82 Long term (current) use of aspirin; Z79.899 Other long term (current) drug therapy; Z98.890 Other specified postprocedural states
CPT/HCPCS: 36415; 70450; 71046; 80048; 81001; 83605; 84484; 85027; 86140; 93005; 93971; 94640; 94762; 96365; 96366; 96372; 96375; 96376; 97110; 97164; 97165; 97530; 97535; 99285; A9270; C9113; G0378; J1650; J1940; J2543; J7030; 99217; 99219; 99225; J7620-GY

== ENCOUNTER 2020-06-07 13:17 | Emergency (ER) | payer MEDICARE, BC ==
[2020-06-07] MEDS ORDERED: Acetaminophen 500 MG Tab PO ONE (14:01)
--- NOTE | 2020-06-07 14:09 | EDM.PDOC ---
ED HPI GENERAL MEDICAL PROBLEM - General Chief Complaint: Lower Extremity Injury/Pain Stated Complaint: SEVERE LEG PAIN AFTER STRESS TEST Time Seen by Provider: 06/07/20 13:50 Source of Information: Reports: Patient, Family, Old Records, RN History Limitations: Reports: No Limitations - History of Present Illness INITIAL COMMENTS - FREE TEXT/NARRATIVE: 79 yo female had just finished an non-exercise stress test today when she experienced some cramping in her L hip area. That has since passed, but she some mild aching down her L leg since. Is wearing bilateral LE MARYELLEN wraps below the knees due to chronic swelling. Was tx'd recently for cellulitis of the LLE. Is on furosemide for the LE edema and several doses were missed this week due to a problem with calling in the Rx. No SOB. No chest pain. No fever. No chills. Onset: Today, Sudden Onset Date: 06/07/20 Duration: Minutes:, Improving Location: Reports: Lower Extremity, Left Quality: Reports: Ache (now, was cramp-like initially) Severity: Severe (at first, now mild) Improves with: Reports: Other (time) Worsens with: Reports: Other (unknown) Context: Reports: Other (See HPI) Associated Symptoms: Reports: No Other Symptoms. 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 (see below) (none) - Related Data Allergies Allergy/AdvReac Type Severity Reaction Status Date / Time erythromycin base Allergy Rash Verified 06/07/20 13:37 [Erythromycin Base] naproxen Allergy Rash Verified 06/07/20 13:37 oxycodone [Oxycodone] AdvReac Nausea and Verified 06/07/20 13:37 Vomiting propoxyphene napsylate AdvReac Nausea and Verified 06/07/20 13:37 [From Darvocet-N 100] Vomiting Home Meds: Home Meds *[id number] Vitamin D 200 1 tab PO DAILY 12/08/12 [History] Aspirin [Adult Low Dose Aspirin EC] 81 mg PO DAILY 12/08/12 [History] Fluticasone Propionate [Flonase] 2 spray INH DAILY 12/08/12 [History] Folic Acid 0.4 mg PO DAILY 12/08/12 [History] Metoprolol Tartrate [Lopressor] 50 mg PO BID 12/08/12 [History] Multivitamin [Multivitamins] 1 each PO DAILY 12/08/12 [History] Mirtazapine 7.5 mg PO DAILY 05/23/20 [History] Furosemide 20 mg PO DAILY 06/07/20 [History] Past Medical History HEENT History: Reports: Impaired Vision 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: Reports: Hypertension Gastrointestinal History: Reports: None Genitourinary History: Reports: Renal Disease Other Genitourinary History: state 3 kidney disease [employer]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: Musculoskeletal History: Reports: Arthritis Neurological History: Reports: Migraines, TIA, Vertigo Psychiatric History: Reports: Depression Endocrine/Metabolic History: Reports: Obesity/BMI 30+ Dermatologic History: Reports: Cellulitis - Infectious Disease History Infectious Disease History: Reports: Chicken Pox, Measles, Mumps - Past Surgical History Head Surgeries/Procedures: Reports: None HEENT Surgical History: Reports: None Cardiovascular Surgical History: Reports: None GI Surgical History: Reports: Cholecystectomy Female Surgical History: Reports: Hysterectomy Neurological Surgical History: Reports: None Musculoskeletal Surgical History: Reports: None Dermatological Surgical History: Reports: None Social & Family History - Family History Family Medical History: No Pertinent Family History - Tobacco Use Tobacco Use Status *Q: Never Tobacco User Second Hand Smoke Exposure: No - Caffeine Use Caffeine Use: Reports: None - Recreational Drug Use Recreational Drug Use: No - Living Situation & Occupation Living situation: Reports: , with Family Occupation: Retired (lives with Sid in [place], [place]. has two children.) Review of Systems - Review of Systems Review Of Systems: See Below Constitutional: Reports: No Symptoms Respiratory: Denies: Shortness of Breath Cardiovascular: Denies: Chest Pain Musculoskeletal: Reports: Leg Pain (L lateral hip area) Skin: Reports: No Symptoms Neurological: Reports: No Symptoms ED EXAM, GENERAL - Physical Exam Exam: See Below Exam Limited By: No Limitations General Appearance: Alert, WD/WN, No Apparent Distress, Obese Eye Exam: Bilateral Eye: Normal Inspection Ears: Normal External Exam, Normal Canal, Hearing Grossly Normal Ear Exam: Bilateral Ear: Auricle Normal, Canal Normal Nose: Normal Inspection, No Blood Throat/Mouth: Normal Inspection, Normal Lips, Normal Oropharynx, Normal Voice, No Airway Compromise Head: Atraumatic, Normocephalic Neck: Normal Inspection Respiratory/Chest: No Respiratory Distress, Lungs Clear, Normal Breath Sounds, No Accessory Muscle Use Cardiovascular: Regular Rate, Rhythm, No Edema GI/Abdominal: Soft, Non-Tender Extremities: Normal Inspection, Normal Range of Motion, Non-Tender, No Pedal Edema. No: Pedal Edema, Torrie's Sign, Increased Warmth, Redness Neurological: Alert, Oriented, CN II-XII Intact, Normal Cognition, No Motor/Sensory Deficits Psychiatric: Normal Affect, Normal Mood Skin Exam: Warm, Dry, Intact, Normal Color, No Rash Course - Vital Signs Last Recorded V/S: Last Vital Signs Temp 36.5 C 06/07/20 13:41 Pulse 66 06/07/20 14:36 Resp 18 06/07/20 13:41 BP 160/77 H 06/07/20 14:36 Pulse Ox 94 L 06/07/20 14:36 - Orders/Labs/Meds Labs: Laboratory Tests 06/07/20 06/07/20 Range/Units 14:10 14:10 Sodium 143 (140-148) mmol/L Potassium 4.2 (3.6-5.2) mmol/L Chloride 105 (100-108) mmol/L Carbon Dioxide 28 (21-32) mmol/L Anion Gap 9.9 (5.0-14.0) mmol/L BUN 18 (7-18) mg/dL Creatinine 1.0 (0.6-1.0) mg/dL Est Cr Clr Drug Dosing 33.86 mL/min Estimated GFR (MDRD) 53 L (>60) Glucose 86 (74-106) mg/dL Calcium 9.7 (8.5-10.1) mg/dL Magnesium 1.9 (1.8-2.4) mg/dL Meds: Medications Discontinued Medications Generic Name Dose Route Start Last Admin Trade Name Gareth PRN Reason Stop Dose Admin Acetaminophen 1,000 mg 06/07/20 14:01 06/07/20 14:06 Acetaminophen 500 Mg Tab PO 06/07/20 14:02 1,000 mg ONETIME ONE Administration - Re-Assessments/Exams Free Text/Narrative Re-Assessment/Exam: 06/07/20 14:50 L hip area gradually feeling better the longer she is here. Will walk her with her walker and see how she does. Free Text/Narrative Re-Assessment/Exam: 06/07/20 14:54 Did well with the walker. Departure - Departure Time of Disposition: 14:54 Disposition: Home, Self-Care 01 Condition: Good Clinical Impression: Cramp of limb - Discharge Information *PRESCRIPTION DRUG MONITORING PROGRAM REVIEWED*: No *COPY OF PRESCRIPTION DRUG MONITORING REPORT IN PATIENT RAMIRO: No Referrals: Ga Allison MD [Primary Care Provider] - Forms: ED Department Discharge Additional Instructions: Continue your usual medications. Stay in touch with your primary care provider. Return as needed. Sepsis Event Note (ED) - Evaluation Sepsis Screening Result: No Definite Risk - Focused Exam Vital Signs: Vital Signs Temp Pulse Resp BP Pulse Ox 06/07/20 14:36 66 160/77 H 94 L 06/07/20 13:41 36.5 C 71 18 159/71 H 100 06/07/20 13:35 36.5 C 71 18 159/71 H 100
[2020-06-07 14:37] VITALS: BP 160/77; PULSE 66
== END 2020-06-07 15:05 | disposition home or self-care (01) ==
LOC: JP.ED 13:17
DX: R25.2 Cramp and spasm (principal); I12.9 Hypertensive chronic kidney disease with stage 1 through stage 4 chronic kidney disease, or unspecified chronic kidney disease; N18.30 Chronic kidney disease, stage 3 unspecified; M19.90 Unspecified osteoarthritis, unspecified site; E66.9 Obesity, unspecified; Z68.34 Body mass index [BMI] 34.0-34.9, adult; Z88.1 Allergy status to other antibiotic agents; Z88.5 Allergy status to narcotic agent; Z79.82 Long term (current) use of aspirin; Z79.899 Other long term (current) drug therapy; Z86.73 Personal history of transient ischemic attack (TIA), and cerebral infarction without residual deficits
CPT/HCPCS: 36415; 80048; 83735; 99284; A9270; 78452; 93017; A9500; J2785

== ENCOUNTER 2020-06-28 13:19 | Emergency (ER) | payer MEDICARE, BC ==
--- NOTE | 2020-06-28 14:06 | EDM.PDOC ---
ED HPI GENERAL MEDICAL PROBLEM - General Chief Complaint: Skin Complaint Stated Complaint: CHEST HEAVINESS,ANKLE EDEMA Time Seen by Provider: 06/28/20 14:10 Source of Information: Reports: Patient, Old Records, RN History Limitations: Reports: No Limitations - History of Present Illness INITIAL COMMENTS - FREE TEXT/NARRATIVE: 79 yo female presented to the clinic today for follow up on her leg cellulitis and mentioned she had chest tightness then and was promptly told to go to the ER. Her chest tightness is gone on arrival. She has more puffiness in her feet/ankles. Denies SOB. Has not missed any of her meds. Her BP normally runs in the 130's and was last checked about 3 d ago. 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: Other (see below) (none) - Related Data Allergies Allergy/AdvReac Type Severity Reaction Status Date / Time erythromycin base Allergy Rash Verified 06/07/20 13:37 [Erythromycin Base] naproxen Allergy Rash Verified 06/07/20 13:37 oxycodone [Oxycodone] AdvReac Nausea and Verified 06/07/20 13:37 Vomiting propoxyphene napsylate AdvReac Nausea and Verified 06/07/20 13:37 [From Darvocet-N 100] Vomiting Home Meds: Home Meds *[id number] Vitamin D 200 1 tab PO DAILY 12/08/12 [History] Aspirin [Adult Low Dose Aspirin EC] 81 mg PO DAILY 12/08/12 [History] Fluticasone Propionate [Flonase] 2 spray INH DAILY 12/08/12 [History] Folic Acid 0.4 mg PO DAILY 12/08/12 [History] Metoprolol Tartrate [Lopressor] 50 mg PO BID 12/08/12 [History] Multivitamin [Multivitamins] 1 each PO DAILY 12/08/12 [History] Mirtazapine 7.5 mg PO DAILY 05/23/20 [History] Furosemide 20 mg PO DAILY 06/07/20 [History] lisinopriL [Prinivil] 20 mg PO DAILY #30 tab 06/28/20 [Rx] Past Medical History HEENT History: Reports: Impaired Vision 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: Reports: Hypertension Gastrointestinal History: Reports: None Genitourinary History: Reports: Renal Disease Other Genitourinary History: state 3 kidney disease 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: Musculoskeletal History: Reports: Arthritis Neurological History: Reports: Migraines, TIA, Vertigo Psychiatric History: Reports: Depression Endocrine/Metabolic History: Reports: Obesity/BMI 30+ Dermatologic History: Reports: Cellulitis - Infectious Disease History Infectious Disease History: Reports: Chicken Pox, Measles, Mumps - Past Surgical History Head Surgeries/Procedures: Reports: None HEENT Surgical History: Reports: None Cardiovascular Surgical History: Reports: None GI Surgical History: Reports: Cholecystectomy Female Surgical History: Reports: Hysterectomy Neurological Surgical History: Reports: None Musculoskeletal Surgical History: Reports: None Dermatological Surgical History: Reports: None Social & Family History - Family History Family Medical History: No Pertinent Family History - Caffeine Use Caffeine Use: Reports: None - Living Situation & Occupation Living situation: Reports: , with Family Occupation: Retired (lives with Sid in [place], [place]. has two children.) ED ROS GENERAL - Review of Systems Review Of Systems: See Below Constitutional: Reports: No Symptoms HEENT: Reports: No Symptoms Respiratory: Reports: No Symptoms Cardiovascular: Reports: Chest Pain (now gone) GI/Abdominal: Reports: No Symptoms : Reports: No Symptoms Musculoskeletal: Reports: No Symptoms Skin: Reports: No Symptoms Neurological: Reports: No Symptoms Psychiatric: Reports: No Symptoms ED EXAM, SKIN/RASH Exam: See Below Exam Limited By: No Limitations General Appearance: Alert, WD/WN, No Apparent Distress, Obese Eye Exam: Bilateral Eye: Normal Inspection Ears: Normal External Exam, Normal Canal, Hearing Grossly Normal Nose: Normal Inspection, No Blood Throat/Mouth: Normal Inspection, Normal Lips, Normal Oropharynx, Normal Voice, No Airway Compromise Head: Atraumatic, Normocephalic Neck: Normal Inspection Respiratory/Chest: No Respiratory Distress, Lungs Clear, Normal Breath Sounds, No Accessory Muscle Use Cardiovascular: Regular Rate, Rhythm GI/Abdominal: Normal Bowel Sounds, Soft, Non-Tender, No Distention Back Exam: Normal Inspection. No: CVA Tenderness (R), CVA Tenderness (L) Extremities: Normal Inspection, Normal Range of Motion, Non-Tender, Pedal Edema (trace pitting edema bilaterally) Neurological: Alert, Oriented, CN II-XII Intact, Normal Cognition, No Motor/Sensory Deficits Psychiatric: Normal Affect, Normal Mood Skin: Warm, Dry, Intact, Normal Color, No Rash. No: Erythema, Increased Warmth, Rash Associated features: No: Warmth #1 Interpretation EKG Date: 06/28/20 Time: 14:00 Rhythm: NSR Rate (Beats/Min): 62 [place]: Normal P-Wave: Present QRS: Normal ST-T: Normal QT: Normal Comparison: No Change Course - Vital Signs Last Recorded V/S: Last Vital Signs Temp 36.6 C 06/28/20 13:59 Pulse 58 L 06/28/20 15:19 Resp 18 06/28/20 13:59 BP 142/70 H 06/28/20 15:19 Pulse Ox - Orders/Labs/Meds Orders: Active Orders 24 hr Category Date Time Status Cardiac Monitoring [RC] .As Directed Care 06/28/20 14:04 Active EKG Documentation Completion [RC] ASDIRECTED Care 06/28/20 14:03 Active Sodium Chloride 0.9% [Saline Flush] Med 06/28/20 14:15 Active 10 ml FLUSH ASDIRECTED PRN Saline Lock Insert [OM.PC] Routine Oth 06/28/20 14:15 Ordered EKG 12 Lead [EK] Routine Ther 06/28/20 14:03 Ordered Medication Orders Sodium Chloride (Sodium Chloride 0.9% 10 Ml Syringe) 10 ml FLUSH ASDIRECTED PRN PRN Reason: Keep Vein Open Last Admin: 06/28/20 14:33 Dose: 10 ml Documented by: ELLIOTT Labs: Laboratory Tests 06/28/20 06/28/20 06/28/20 Range/Units 14:28 14:28 14:28 WBC 6.6 (4.5-11.0) K/uL RBC 4.67 (3.30-5.50) M/uL Hgb 13.3 (12.0-15.0) g/dL Hct 41.4 (36.0-48.0) % MCV 89 (80-98) fL MCH 29 (27-31) pg MCHC 32 (32-36) % Plt Count 225 (150-400) K/uL Sodium 142 (140-148) mmol/L Potassium 4.1 (3.6-5.2) mmol/L Chloride 102 (100-108) mmol/L Carbon Dioxide 30 (21-32) mmol/L Anion Gap 10.3 (5.0-14.0) mmol/L BUN 29 H D (7-18) mg/dL Creatinine 1.1 H (0.6-1.0) mg/dL Est Cr Clr Drug Dosing 29.30 mL/min Estimated GFR (MDRD) 48 L (>60) Glucose 87 (74-106) mg/dL Calcium 9.6 (8.5-10.1) mg/dL Magnesium 1.9 (1.8-2.4) mg/dL Troponin I < 0.017 (0.000-0.056) ng/mL Meds: Medications Generic Name Dose Route Start Last Admin Trade Name Freq PRN Reason Stop Dose Admin Sodium Chloride 10 ml 06/28/20 14:15 06/28/20 14:33 Sodium Chloride 0.9% 10 Ml Syringe FLUSH 10 ml ASDIRECTED PRN Administration Keep Vein Open Discontinued Medications Generic Name Dose Route Start Last Admin Trade Name Freq PRN Reason Stop Dose Admin Furosemide 40 mg 06/28/20 14:15 06/28/20 14:33 Furosemide 40 Mg/4 Ml Vial IVPUSH 06/28/20 14:16 40 mg ONETIME ONE Administration Lisinopril 20 mg 06/28/20 15:09 06/28/20 15:17 Lisinopril 10 Mg Tab PO 06/28/20 15:10 20 mg ONETIME ONE Administration Departure - Departure Time of Disposition: 15:30 Disposition: Home, Self-Care 01 Condition: Fair Clinical Impression: HTN (hypertension) Qualifiers: Hypertension type: essential hypertension Qualified Code(s): I10 - Essential (primary) hypertension - Discharge Information *PRESCRIPTION DRUG MONITORING PROGRAM REVIEWED*: Not Applicable *COPY OF PRESCRIPTION DRUG MONITORING REPORT IN PATIENT RAMIRO: Not Applicable Prescriptions: lisinopriL [Prinivil] 20 mg PO DAILY #30 tab Instructions: Hypertension, Adult Referrals: PCP,None [Primary Care Provider] - Forms: ED Department Discharge Additional Instructions: Start lisinopril 20 mg daily starting tomorrow. Avoid salt or salty foods. Continue your other medicines as before. Return as needed. See your provider for recheck within the week. Sepsis Event Note (ED) - Evaluation Sepsis Screening Result: No Definite Risk - Focused Exam Vital Signs: Vital Signs Temp Pulse Resp BP BP 06/28/20 15:19 58 L 142/70 H 06/28/20 15:17 162/74 H 06/28/20 14:57 162/74 H 06/28/20 14:37 61 170/72 H 06/28/20 13:59 36.6 C 60 18 181/66 H - My Orders Last 24 Hours: My Active Orders 06/28/20 14:03 EKG Documentation Completion [RC] ASDIRECTED EKG 12 Lead [EK] Routine 06/28/20 14:04 Cardiac Monitoring [RC] .As Directed 06/28/20 14:15 Sodium Chloride 0.9% [Saline Flush] 10 ml FLUSH ASDIRECTED PRN Saline Lock Insert [OM.PC] Routine - Assessment/Plan Last 24 Hours: My Active Orders 06/28/20 14:03 EKG Documentation Completion [RC] ASDIRECTED EKG 12 Lead [EK] Routine 06/28/20 14:04 Cardiac Monitoring [RC] .As Directed 06/28/20 14:15 Sodium Chloride 0.9% [Saline Flush] 10 ml FLUSH ASDIRECTED PRN Saline Lock Insert [OM.PC] Routine
[2020-06-28] MEDS ORDERED: Furosemide 40 MG/4 ML VIAL IVPUSH ONE (14:15)
[2020-06-28] MEDS ORDERED: Sodium Chloride 0.9% 10 ML Syringe FLUSH PRN (14:15)
[2020-06-28] MEDS ORDERED: Lisinopril 10 MG Tab PO ONE (15:09)
[2020-06-28 15:19] VITALS: BP 142/70; PULSE 58
== END 2020-06-28 15:55 | disposition home or self-care (01) ==
LOC: JP.ED 13:19
DX: I12.9 Hypertensive chronic kidney disease with stage 1 through stage 4 chronic kidney disease, or unspecified chronic kidney disease (principal); N18.30 Chronic kidney disease, stage 3 unspecified; E66.9 Obesity, unspecified; Z79.82 Long term (current) use of aspirin; Z79.899 Other long term (current) drug therapy; Z68.35 Body mass index [BMI] 35.0-35.9, adult
CPT/HCPCS: 36415; 80048; 83735; 84484; 85027; 93005; 96374; 99283; 99285; A9270; J1940

== ENCOUNTER 2020-12-22 11:51 | Observation (INO) | payer MEDICARE, BC ==
[2020-12-22] MEDS ORDERED: Meclizine 25 MG Tab PO ONE (12:00)
--- NOTE | 2020-12-22 12:10 | EDM.PDOC ---
ED HPI GENERAL MEDICAL PROBLEM - General Chief Complaint: General Stated Complaint: WEAKNESS AND DIZZINESS VIA [facility] Time Seen by Provider: 12/22/20 11:55 Source of Information: Reports: Patient, EMS, Old Records History Limitations: Reports: No Limitations - History of Present Illness INITIAL COMMENTS - FREE TEXT/NARRATIVE: 80 yo female with Stage III renal failure woke up and was feeling weak. She says she ate an apple and then lied back down. When she did so the room began to spin and EMS was called. She has had this in the past, but not for a long time. She denies any associated nausea or diaphoresis. She is not dizzy on arrival. Her vitals were stable en route. No treatment initiated by either EMS or patient. She lives with family. Onset: Today, Sudden Onset Date: 12/22/20 Duration: Minutes:, Resolved Prior to Arrival Location: Reports: Head Quality: Reports: Other (no pain) Severity: Moderate (dizziness) Improves with: Reports: Other (time) Worsens with: Reports: Other (? changes in head position) Context: Reports: Other (See HPI) Associated Symptoms: Reports: Weakness (generalized). Denies: Diaphoresis, Nausea/Vomiting Treatments MANAGER OFFICE: Reports: Other (see below) (none) - Related Data Allergies Allergy/AdvReac Type Severity Reaction Status Date / Time erythromycin base Allergy Rash Verified 12/22/20 12:02 [Erythromycin Base] naproxen Allergy Rash Verified 12/22/20 12:02 oxycodone [Oxycodone] AdvReac Nausea and Verified 12/22/20 12:02 Vomiting propoxyphene napsylate AdvReac Nausea and Verified 12/22/20 12:02 [From Darvocet-N 100] Vomiting Home Meds: Home Meds *[id number] Vitamin D 200 1 tab PO DAILY 12/08/12 [History] Aspirin [Adult Low Dose Aspirin EC] 81 mg PO DAILY 12/08/12 [History] Fluticasone Propionate [Flonase] 2 spray INH DAILY 12/08/12 [History] Folic Acid 0.4 mg PO DAILY 12/08/12 [History] Metoprolol Tartrate [Lopressor] 50 mg PO BID 12/08/12 [History] Multivitamin [Multivitamins] 1 each PO DAILY 12/08/12 [History] Mirtazapine 7.5 mg PO DAILY 05/23/20 [History] Furosemide 20 mg PO DAILY 06/07/20 [History] lisinopriL [Prinivil] 20 mg PO DAILY #30 tab 06/28/20 [Rx] Meclizine [Antivert] 25 mg PO Q6H PRN #40 tab.chew 12/22/20 [Rx] Past Medical History HEENT History: Reports: Impaired Vision 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: Reports: Hypertension Gastrointestinal History: Reports: None Genitourinary History: Reports: Renal Disease Other Genitourinary History: state 3 kidney disease 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: Musculoskeletal History: Reports: Arthritis Neurological History: Reports: Migraines, TIA, Vertigo Psychiatric History: Reports: Depression Endocrine/Metabolic History: Reports: Obesity/BMI 30+ Dermatologic History: Reports: Cellulitis - Infectious Disease History Infectious Disease History: Reports: Chicken Pox, Measles, Mumps - Past Surgical History Head Surgeries/Procedures: Reports: None HEENT Surgical History: Reports: None Cardiovascular Surgical History: Reports: None GI Surgical History: Reports: Cholecystectomy Female Surgical History: Reports: Hysterectomy Neurological Surgical History: Reports: None Musculoskeletal Surgical History: Reports: None Dermatological Surgical History: Reports: None Social & Family History - Family History Family Medical History: No Pertinent Family History - Caffeine Use Caffeine Use: Reports: None - Living Situation & Occupation Living situation: Reports: , with Family Occupation: Retired (lives with Sid in [place], [place]. has two children.) ED ROS GENERAL - Review of Systems Review Of Systems: See Below Constitutional: Reports: Malaise, Weakness (generalized). Denies: Diaphoresis HEENT: Reports: No Symptoms, Vertigo (at home, not now) Respiratory: Reports: No Symptoms Cardiovascular: Reports: No Symptoms Endocrine: Reports: No Symptoms GI/Abdominal: Reports: No Symptoms. Denies: Nausea : Reports: No Symptoms Musculoskeletal: Reports: No Symptoms Skin: Reports: No Symptoms. Denies: Diaphoresis Neurological: Reports: No Symptoms, Difficulty Walking (due to vertigo that is now resolved). Denies: Confusion, Headache, Numbness ED EXAM, GENERAL - Physical Exam Exam: See Below Exam Limited By: No Limitations General Appearance: Alert, WD/WN, No Apparent Distress Eye Exam: Bilateral Eye: EOMI, Normal Inspection, PERRL Ears: Normal External Exam, Normal Canal, Hearing Grossly Normal, Normal TMs Ear Exam: Bilateral Ear: Auricle Normal, Canal Normal, TM normal Nose: Normal Inspection, No Blood Throat/Mouth: Normal Inspection, Normal Lips, Normal Oropharynx, Normal Voice, No Airway Compromise Head: Atraumatic, Normocephalic Neck: Normal Inspection Respiratory/Chest: No Respiratory Distress, Lungs Clear, Normal Breath Sounds, No Accessory Muscle Use Cardiovascular: Regular Rate, Rhythm, No Edema GI/Abdominal: Normal Bowel Sounds, Soft, Non-Tender, No Distention Back Exam: Normal Inspection. No: CVA Tenderness (R), CVA Tenderness (L) Extremities: Normal Inspection, Normal Range of Motion, Non-Tender, No Pedal Edema. No: Pedal Edema Neurological: Alert, Oriented, CN II-XII Intact, Normal Cognition, No Motor/Sensory Deficits Psychiatric: Normal Affect, Normal Mood Skin Exam: Warm, Dry, Intact, Normal Color, No Rash. No: Diaphoretic Course - Vital Signs Last Recorded V/S: Last Vital Signs Temp 36.5 C 12/22/20 12:01 Pulse 60 12/22/20 12:31 Resp 16 12/22/20 12:01 BP 149/64 H 12/22/20 12:31 Pulse Ox 95 12/22/20 12:31 - Orders/Labs/Meds Orders: Active Orders 24 hr Category Date Time Status Sodium Chloride 0.9% [Normal Saline] 1,000 ml Med 12/22/20 12:48 Active IV .BOLUS Medication Orders Sodium Chloride (Normal Saline) 1,000 mls @ 1,000 mls/hr IV .BOLUS ONE Stop: 12/22/20 13:47 Labs: Laboratory Tests 12/22/20 12/22/20 Range/Units 12:10 12:10 Hgb 12.6 (12.0-15.0) g/dL Sodium 141 (140-148) mmol/L Potassium 4.4 (3.6-5.2) mmol/L Chloride 105 (100-108) mmol/L Carbon Dioxide 27 (21-32) mmol/L Anion Gap 8.8 (5.0-14.0) mmol/L BUN 30 H (7-18) mg/dL Creatinine 1.2 H (0.6-1.0) mg/dL Est Cr Clr Drug Dosing 27.74 mL/min Estimated GFR (MDRD) 43 L (>60) Glucose 99 (74-106) mg/dL Calcium 9.2 (8.5-10.1) mg/dL Meds: Medications Generic Name Dose Route Start Last Admin Trade Name Fremary PRN Reason Stop Dose Admin Sodium Chloride 1,000 mls @ 1,000 mls/hr 12/22/20 12:48 Normal Saline IV 12/22/20 13:47 .BOLUS ONE Discontinued Medications Generic Name Dose Route Start Last Admin Trade Name Gareth PRN Reason Stop Dose Admin Meclizine HCl 25 mg 12/22/20 12:00 12/22/20 12:08 Meclizine 25 Mg Tab PO 12/22/20 12:01 25 mg ONETIME ONE Administration Departure - Departure Time of Disposition: 14:30 Disposition: Home, Self-Care 01 Condition: Fair Clinical Impression: Mild dehydration BPV (benign positional vertigo) Qualifiers: Laterality: unspecified laterality Qualified Code(s): H81.10 - Benign paroxysmal vertigo, unspecified ear - Discharge Information *PRESCRIPTION DRUG MONITORING PROGRAM REVIEWED*: Not Applicable *COPY OF PRESCRIPTION DRUG MONITORING REPORT IN PATIENT RAMIRO: Not Applicable Prescriptions: Meclizine [Antivert] 25 mg PO Q6H PRN #40 tab.chew PRN Reason: Dizziness Instructions: Vertigo, [id number] Referrals: PCP,Unknown [Primary Care Provider] - Forms: ED Department Discharge Additional Instructions: Take the meclizine every 6 hrs as needed for vertigo symptoms. Recheck with your provider as needed. Drink enough so that your urine is light yellow in color. Return as needed. Sepsis Event Note (ED) - Evaluation Sepsis Screening Result: No Definite Risk - Focused Exam Vital Signs: Vital Signs Temp Pulse Resp BP Pulse Ox 12/22/20 12:31 60 149/64 H 95 12/22/20 12:01 36.5 C 61 16 155/69 H 97 12/22/20 11:59 36.5 C 61 16 155/69 H 97 - My Orders Last 24 Hours: My Active Orders 12/22/20 12:48 Sodium Chloride 0.9% [Normal Saline] 1,000 ml IV .BOLUS - Assessment/Plan Last 24 Hours: My Active Orders 12/22/20 12:48 Sodium Chloride 0.9% [Normal Saline] 1,000 ml IV .BOLUS
[2020-12-22] MEDS ORDERED: Sodium Chloride 0.9% 1,000 ML IV ONE (12:48)
[2020-12-22] MEDS ORDERED: diphenhydrAMINE 50 MG/ML SDV IVPUSH ONE (14:33)
[2020-12-22] MEDS ORDERED: LORazepam 2 MG/ML SDV IVPUSH ONE ×2 (14:34→18:04)
--- NOTE | 2020-12-22 18:45 | PCM.HP.2 ---
H&P History of Present Illness - General Date of Service: 12/22/20 Admit Problem/Dx: Admission Diagnosis/Problem Admission Diagnosis/Problem Vertigo Source of Information: Patient, Family, Provider, RN Notes Reviewed History Limitations: Reports: No Limitations - History of Present Illness Initial Comments - Free Text/Narative: Ms. Gibson is an 80-year-old woman who was admitted through the emergency department observation status with weakness and dizziness secondary to benign positional vertigo. She felt well until she got up this morning and noted that she felt somewhat weak and unsteady. Shortly thereafter developed full-blown vertiginous symptoms associated with head movement. Symptoms persisted into the morning and she presented to the emergency department for further evaluation. She has received some IV fluids in the emergency department as well as lorazepam with no significant improvement in her symptoms. She is unsteady and not safe for discharged home. - Related Data Allergies/Adverse Reactions: Allergies Allergy/AdvReac Type Severity Reaction Status Date / Time erythromycin base Allergy Rash Verified 12/22/20 12:02 [Erythromycin Base] naproxen Allergy Rash Verified 12/22/20 12:02 oxycodone [Oxycodone] AdvReac Nausea and Verified 12/22/20 12:02 Vomiting propoxyphene napsylate AdvReac Nausea and Verified 12/22/20 12:02 [From Darvocet-N 100] Vomiting Home Medications: Home Meds *[id number] Vitamin D 200 1 tab PO DAILY 12/08/12 [History] Aspirin [Adult Low Dose Aspirin EC] 81 mg PO DAILY 12/08/12 [History] Fluticasone Propionate [Flonase] 2 spray INH DAILY 12/08/12 [History] Folic Acid 0.4 mg PO DAILY 12/08/12 [History] Metoprolol Tartrate [Lopressor] 50 mg PO BID 12/08/12 [History] Multivitamin [Multivitamins] 1 each PO DAILY 12/08/12 [History] Mirtazapine 7.5 mg PO DAILY 05/23/20 [History] Furosemide 20 mg PO DAILY 06/07/20 [History] lisinopriL [Prinivil] 20 mg PO DAILY #30 tab 06/28/20 [Rx] Meclizine [Antivert] 25 mg PO Q6H PRN #40 tab.chew 12/22/20 [Rx] Past Medical History HEENT History: Reports: Impaired Vision 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: Reports: Hypertension Gastrointestinal History: Reports: None Genitourinary History: Reports: Renal Disease Other Genitourinary History: state 3 kidney disease 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: Musculoskeletal History: Reports: Arthritis Neurological History: Reports: Migraines, TIA, Vertigo Psychiatric History: Reports: Depression Endocrine/Metabolic History: Reports: Obesity/BMI 30+ Dermatologic History: Reports: Cellulitis - Infectious Disease History Infectious Disease History: Reports: Chicken Pox, Measles, Mumps - Past Surgical History Head Surgeries/Procedures: Reports: None HEENT Surgical History: Reports: None Cardiovascular Surgical History: Reports: None GI Surgical History: Reports: Cholecystectomy Female Surgical History: Reports: Hysterectomy Neurological Surgical History: Reports: None Musculoskeletal Surgical History: Reports: None Dermatological Surgical History: Reports: None Social & Family History - Family History Family Medical History: No Pertinent Family History - Tobacco Use Tobacco Use Status *Q: Never Tobacco User - Caffeine Use Caffeine Use: Reports: None - Recreational Drug Use Recreational Drug Use: No - Living Situation & Occupation Living situation: Reports: , with Family Occupation: Retired (lives with Sid in [place], [place]. has two children.) H&P Review of Systems - Review of Systems: Review Of Systems: See Below General: Reports: Weakness. Denies: Fever, Chills, Night Sweats, Decreased Appetite HEENT: Reports: Vertigo. Denies: Dysphasia, Ear Pain, Eye Pain, Headaches, Hearing Changes Pulmonary: Reports: No Symptoms Cardiovascular: Reports: No Symptoms Gastrointestinal: Reports: No Symptoms Genitourinary: Reports: No Symptoms Musculoskeletal: Reports: No Symptoms Skin: Reports: No Symptoms Psychiatric: Reports: No Symptoms Neurological: Reports: No Symptoms Hematologic/Lymphatic: Reports: No Symptoms Immunologic: Reports: No Symptoms Exam - Exam Exam: See Below - Vital Signs Vital Signs: Last Vital Signs Temp 97.7 F 12/22/20 12:01 Pulse 64 12/22/20 18:08 Resp 18 12/22/20 18:08 BP 143/59 H 12/22/20 18:08 Pulse Ox 100 12/22/20 18:08 Weight: 185 lb - Exam Quality Assessment: DVT Prophylaxis General: Alert, Oriented, Cooperative, Moderate Distress HEENT: Other (Rotary nystagmus) Neck: Supple, Trachea Midline, +2 Carotid Pulse wo Bruit Lungs: Clear to Auscultation, Normal Respiratory Effort Cardiovascular: Regular Rate, Regular Rhythm, Normal S1, Normal S2. No: Systolic Murmur, Diastolic Murmur GI/Abdominal Exam: Soft, Non-Tender, No Organomegaly, No Distention Back Exam: Normal Inspection, Full Range of Motion Extremities: Non-Tender, No Pedal Edema Skin: Warm, Dry, Intact Neurological: Cranial Nerves Intact, Strength Equal Bilateral, Normal Speech, Normal Tone, Sensation Intact. No: Focal Deficit Neuro Extensive - Mental Status: Alert, Oriented x3, Normal Mood/Affect, Normal Cognition, Memory Intact - Patient Data Lab Results Last 24 hrs: Laboratory Results - last 24 hr 12/22/20 12/22/20 Range/Units 12:10 12:10 Hgb 12.6 (12.0-15.0) g/dL Sodium 141 (140-148) mmol/L Potassium 4.4 (3.6-5.2) mmol/L Chloride 105 (100-108) mmol/L Carbon Dioxide 27 (21-32) mmol/L Anion Gap 8.8 (5.0-14.0) mmol/L BUN 30 H (7-18) mg/dL Creatinine 1.2 H (0.6-1.0) mg/dL Est Cr Clr Drug Dosing 27.74 mL/min Estimated GFR (MDRD) 43 L (>60) Glucose 99 (74-106) mg/dL Calcium 9.2 (8.5-10.1) mg/dL Result Diagrams: 12/22/20 12:10 12/22/20 12:10 Sepsis Event Note - Evaluation Sepsis Screening Result: No Definite Risk - Focused Exam Vital Signs: Vital Signs Temp Pulse Resp BP Pulse Ox 12/22/20 18:08 64 18 143/59 H 100 12/22/20 16:55 56 L 16 139/53 L 99 12/22/20 14:43 65 147/68 H 12/22/20 13:25 60 16 139/65 98 12/22/20 12:31 60 149/64 H 95 12/22/20 12:01 97.7 F 61 16 155/69 H 97 12/22/20 11:59 97.7 F 61 16 155/69 H 97 *Q Meaningful Use (ADM) - VTE Risk Assess *Q Each Risk Factor Represents 1 Point: Obesity ( BMI > 25 kg/m2) Total Score 1 Point Risk Factors: 1 Each Risk Factor Represents 2 Points: None Total Score 2 Point Risk Factors: 0 Each Risk Factor Represents 3 Points: Age 75 Years or Greater Total Score 3 Point Risk Factors: 3 Each Risk Factor Represents 5 Points: None Total Score 5 Point Risk Factors: 0 Venous Thromboembolism Risk Factor Score *Q: 4 Problem List Initiated/Reviewed/Updated: Yes Orders Last 24hrs: Active Orders 24 hr Category Date Time Status Patient Status Manage Transfer [TRANSFER] Routine ADT 12/22/20 18:39 Ordered Resuscitation Status Routine Resus Stat 12/22/20 18:41 Ordered Assessment/Plan Comment:: ASSESSMENT AND PLAN BENIGN POSITIONAL VERTIGO-abrupt onset of vertiginous symptoms earlier today. Symptoms have persisted throughout the day and she is very unsteady with any attempted ambulation, unsafe for discharged home. -Supportive care -Up with assistance -IV fluids for hydration -Lorazepam 0.5 mg p.o. every 4 hours as needed for vertigo -Zofran as needed for nausea -Physical therapy consult HYPERTENSION -Continue outpatient medications CHRONIC KIDNEY DISEASE STAGE III -Closely monitor urine output and renal function MAINTENANCE ISSUES -DVT prophylaxis; Lovenox 40 mg subcu daily -GI prophylaxis; not indicated -De Souza catheter; not indicated -Nutrition; 2 g sodium diet -Nicotine dependence; not required CODE STATUS-FULL CODE ADMISSION STATUS-this patient will be admitted to observation status, expect no more than a one night hospital stay for evaluation and management of problems as outlined above. DISPOSITION-anticipate discharge to home after the hospital stay. PRIMARY CARE PROVIDER-Dr. Allison - Mortality Measure Prognosis:: Good
[2020-12-22] MEDS ORDERED: Sodium Chloride 0.9% 10 ML Syringe FLUSH PRN (19:41)
[2020-12-22] MEDS ORDERED: Enoxaparin 40 MG/0.4 ML Syringe SUBCUT SCH (19:41)
[2020-12-22] MEDS ORDERED: Ondansetron 4 MG/2 ML SDV IV PRN (19:41)
[2020-12-22] MEDS ORDERED: LORazepam 0.5 MG Tab PO PRN (19:41)
[2020-12-22] MEDS ORDERED: Polyethylene Glycol 3350 Powder 17 GM Packet PO PRN (19:41)
[2020-12-22] MEDS ORDERED: Acetaminophen 325 MG Tab PO PRN (19:41)
[2020-12-22] MEDS ORDERED: Enoxaparin 30 MG/0.3 ML Syringe SUBCUT ONE (20:00)
[2020-12-22] MEDS: Sodium Chloride 0.9% 1,000 ML IV SCH (20:14)
[2020-12-22] MEDS: Metoprolol Tartrate 50 MG Tab **PTOM PO SCH (20:19)
[2020-12-22 20:58] LABS: CORONAVIRUS COVID-19 NAA NEGATIVE (NEGATIVE)
[2020-12-22] MEDS ORDERED: FLUTICASONE PROPIONATE NAS SCH (21:00)
[2020-12-22] MEDS ORDERED: Mirtazapine 15 MG **PTOM PO SCH (21:00)
[2020-12-23] MEDS: Metoprolol Tartrate 50 MG Tab **PTOM PO SCH (08:09)
[2020-12-23] MEDS ORDERED: Enoxaparin 30 MG/0.3 ML Syringe SUBCUT SCH ×2 (09:00→21:00)
[2020-12-23] MEDS ORDERED: Fluticasone Propionate Nasal Spray 16 GM Bottle NAS SCH (09:00)
[2020-12-23] MEDS ORDERED: Lisinopril 20 MG **PTOM PO SCH (09:00)
[2020-12-23] MEDS: Sodium Chloride 0.9% 1,000 ML IV SCH (09:33)
[2020-12-23 10:29] VITALS: BP 124/56; PULSE 52
--- NOTE | 2020-12-23 11:32 | PCM.DCSUM1 ---
Discharge Summary - Hospital Course Brief History: Ms. Gibson is an 80-year-old woman who was admitted to observation status through the emergency department because of generalized weakness and unsteadiness secondary to benign positional vertigo. - Discharge Data Discharge Date: 12/23/20 Discharge Disposition: Home, Self-Care 01 Condition: Stable - Referral to Home Health Primary Care Physician: PCP Unknown - Discharge Diagnosis/Problem(s) (1) Mild dehydration SNOMED Code(s): 7996466349950 ICD Code: E86.0 - DEHYDRATION Status: Acute Current Visit: Yes (2) BPV (benign positional vertigo) SNOMED Code(s): 807879891 ICD Code: H81.10 - BENIGN PAROXYSMAL VERTIGO, UNSPECIFIED EAR Status: Acute Current Visit: Yes Qualifiers: Laterality: unspecified laterality Qualified Code(s): H81.10 - Benign paroxysmal vertigo, unspecified ear (3) Weakness SNOMED Code(s): 82139574 ICD Code: R53.1 - WEAKNESS Status: Acute Priority: High Current Visit: No - Patient Summary/Data Consults: Consultations 12/22/20 19:41 PT Evaluation and Treatment [CONS] Routine Please Evaluate and Treat. PT Reason for Consult: Vertigo This query below is only for informational purposes and is not editable. Hospital Course: Ms. Gibson is an 80-year-old woman who was admitted through the emergency department observation status with weakness and dizziness secondary to benign positional vertigo. She felt well until she got up on the morning of admission and noted that she felt somewhat weak and unsteady. Shortly thereafter developed full-blown vertiginous symptoms associated with head movement. Symptoms persisted into the morning and she presented to the emergency department for further evaluation. She received some IV fluids in the emergency department as well as lorazepam with no significant improvement in her symptoms. She was unsteady and not safe for discharged home. She was given some IV fluids through the night and lorazepam as needed for symptoms of vertigo and nausea. By the following morning she was feeling significantly improved and had no significant residual symptoms of vertigo. She was walked in the hallway with use of a walker and was felt to be safe for discharged home. She does have a walker available at home for use and she is encouraged to use this over the next several days. Activity will be as tolerated and she will resume her usual diet. Follow-up appointment with primary care provider will be scheduled within 1 week. - Patient Instructions Diet: Heart Healthy Diet Activity: As Tolerated Other/Special Instructions: Follow-up appointment with primary care provider within 1 week. - Discharge Plan *PRESCRIPTION DRUG MONITORING PROGRAM REVIEWED*: Not Applicable *COPY OF PRESCRIPTION DRUG MONITORING REPORT IN PATIENT RAMIRO: Not Applicable Home Medications: Home Meds *[id number] Vitamin D 200 1 tab PO DAILY 12/08/12 [History] Aspirin [Adult Low Dose Aspirin EC] 81 mg PO BEDTIME 12/08/12 [History] Fluticasone Propionate [Flonase] 2 spray INH DAILY 12/08/12 [History] Folic Acid 0.4 mg PO DAILY 12/08/12 [History] Metoprolol Tartrate [Lopressor] 50 mg PO BID 12/08/12 [History] Multivitamin [Multivitamins] 1 each PO DAILY 12/08/12 [History] Mirtazapine 7.5 mg PO BEDTIME 05/23/20 [History] Furosemide 20 mg PO DAILY 06/07/20 [History] lisinopriL [Prinivil] 20 mg PO DAILY #30 tab 06/28/20 [Rx] Patient Handouts: Vertigo, [id number] - Discharge Summary/Plan Comment DC Time >30 min.: No Total # of Minutes for Discharge Time: 15 - Patient Data Vitals - Most Recent: Last Vital Signs Temp 97.8 F 12/23/20 10:27 Pulse 52 L 12/23/20 10:27 Resp 18 12/23/20 10:27 BP 124/56 L 12/23/20 10:27 Pulse Ox 98 12/23/20 10:27 Weight - Most Recent: 188 lb 3.2 oz I&O - Last 24 hours: Intake & Output 12/22/20 12/23/20 12/23/20 22:59 06:59 14:59 Intake Total 1060 812 120 Output Total 200 Balance 1060 612 120 Lab Results - Last 24 hrs: Laboratory Results - last 24 hr 12/22/20 12/22/20 12/22/20 Range/Units 12:10 12:10 19:44 WBC (4.5-11.0) K/uL RBC (3.30-5.50) M/uL Hgb 12.6 (12.0-15.0) g/dL Hct (36.0-48.0) % MCV (80-98) fL MCH (27-31) pg MCHC (32-36) % Plt Count (150-400) K/uL Neut % (Auto) (36-66) % Lymph % (Auto) (24-44) % [place] % (Auto) (2-6) % Eos % (Auto) (2-4) % Baso % (Auto) (0-1) % Sodium 141 (140-148) mmol/L Potassium 4.4 (3.6-5.2) mmol/L Chloride 105 (100-108) mmol/L Carbon Dioxide 27 (21-32) mmol/L Anion Gap 8.8 (5.0-14.0) mmol/L BUN 30 H (7-18) mg/dL Creatinine 1.2 H (0.6-1.0) mg/dL Est Cr Clr Drug Dosing 27.74 mL/min Estimated GFR (MDRD) 43 L (>60) Glucose 99 (74-106) mg/dL Calcium 9.2 (8.5-10.1) mg/dL Influenza Type A RNA Negative (NEGATIVE) RSV RNA (INAAT) Negative (NEGATIVE) Influenza Type B RNA Negative (NEGATIVE) SARS-CoV-2 RNA (TONY) Negative (NEGATIVE) 12/23/20 12/23/20 Range/Units 05:40 05:40 WBC 5.8 (4.5-11.0) K/uL RBC 3.93 (3.30-5.50) M/uL Hgb 11.3 L (12.0-15.0) g/dL Hct 35.3 L (36.0-48.0) % MCV 90 (80-98) fL MCH 29 (27-31) pg MCHC 32 (32-36) % Plt Count 209 (150-400) K/uL Neut % (Auto) 49.1 (36-66) % Lymph % (Auto) 35.2 (24-44) % [place] % (Auto) 13.2 H (2-6) % Eos % (Auto) 2.2 (2-4) % Baso % (Auto) 0.3 (0-1) % Sodium 146 (140-148) mmol/L Potassium 4.2 (3.6-5.2) mmol/L Chloride 111 H (100-108) mmol/L Carbon Dioxide 27 (21-32) mmol/L Anion Gap 12.2 (5.0-14.0) mmol/L BUN 25 H (7-18) mg/dL Creatinine 1.1 H (0.6-1.0) mg/dL Est Cr Clr Drug Dosing 30.27 mL/min Estimated GFR (MDRD) 48 L (>60) Glucose 77 (74-106) mg/dL Calcium 8.2 L (8.5-10.1) mg/dL Influenza Type A RNA (NEGATIVE) RSV RNA (INAAT) (NEGATIVE) Influenza Type B RNA (NEGATIVE) SARS-CoV-2 RNA (TONY) (NEGATIVE) Med Orders - Current: Current Medications Acetaminophen (Acetaminophen 325 Mg Tab) 650 mg PO Q4H PRN PRN Reason: Pain (Mild 1-3)/fever Aspirin (Aspirin 81 Mg Tab.Ec) 81 mg PO BEDTIME [facility] Enoxaparin Sodium (Enoxaparin 30 Mg/0.3 Ml Syringe) 30 mg SUBCUT BEDTIME [facility] Fluticasone Propionate (Fluticasone Propionate Nasal [place] Ptom) 0 gm KAMILLA BEDTIME [facility] Last Admin: 12/22/20 22:17 Dose: 2 spray Documented by: Sodium Chloride (Normal Saline) 1,000 mls @ 75 mls/hr IV ASDIRECTED [facility] Last Admin: 12/23/20 09:33 Dose: 75 mls/hr Documented by: Lisinopril (Lisinopril 20 Mg Ptom) 20 mg PO DAILY [facility] Last Admin: 12/23/20 08:09 Dose: 20 mg Documented by: Lorazepam (Lorazepam 0.5 Mg Tab) 0.5 mg PO Q4H PRN PRN Reason: Other Metoprolol Tartrate (Metoprolol Tartrate 50 Mg Tab Ptom) 50 mg PO BID [facility] Last Admin: 12/23/20 08:09 Dose: 50 mg Documented by: Mirtazapine (Mirtazapine 15 Mg Ptom) 7.5 mg PO BEDTIME [facility] Last Admin: 12/22/20 22:17 Dose: 7.5 mg Documented by: Ondansetron HCl (Ondansetron 4 Mg/2 Ml Sdv) 4 mg IV Q4H PRN PRN Reason: Nausea/Vomiting Polyethylene Glycol (Polyethylene Glycol 3350 Powder 17 Gm Packet) 17 gm PO DAILY PRN PRN Reason: Constipation Sodium Chloride (Sodium Chloride 0.9% 10 Ml Syringe) 10 ml FLUSH ASDIRECTED PRN PRN Reason: Keep Vein Open Discontinued Medications Diphenhydramine HCl (Diphenhydramine 50 Mg/Ml Sdv) 25 mg IVPUSH ONETIME ONE Stop: 12/22/20 14:34 Last Admin: 12/22/20 19:57 Dose: Not Given Documented by: Enoxaparin Sodium (Enoxaparin 40 Mg/0.4 Ml Syringe) 40 mg SUBCUT DAILY [facility] Enoxaparin Sodium (Enoxaparin 30 Mg/0.3 Ml Syringe) 30 mg SUBCUT ONETIME ONE Stop: 12/22/20 20:01 Last Admin: 12/22/20 20:18 Dose: 30 mg Documented by: Enoxaparin Sodium (Enoxaparin 30 Mg/0.3 Ml Syringe) 30 mg SUBCUT DAILY [facility] Fluticasone Propionate (Fluticasone Propionate Nasal [place] 16 Gm Bottle) 0 gm KAMILLA DAILY [facility] Sodium Chloride (Normal Saline) 1,000 mls @ 1,000 mls/hr IV .BOLUS ONE Stop: 12/22/20 13:47 Last Admin: 12/22/20 13:59 Dose: 1,000 mls/hr Documented by: Lorazepam (Lorazepam 2 Mg/Ml Sdv) 0.25 mg IVPUSH ONETIME ONE Stop: 12/22/20 14:35 Last Admin: 12/22/20 19:57 Dose: Not Given Documented by: Lorazepam (Lorazepam 2 Mg/Ml Sdv) 0.25 mg IVPUSH ONETIME ONE Stop: 12/22/20 18:05 Last Admin: 12/22/20 18:22 Dose: 0.25 mg Documented by: Meclizine HCl (Meclizine 25 Mg Tab) 25 mg PO ONETIME ONE Stop: 12/22/20 12:01 Last Admin: 12/22/20 12:08 Dose: 25 mg Documented by: Mirtazapine (Mirtazapine 15 Mg Tab) 7.5 mg PO BEDTIME [facility] - Exam General: Reports: Alert, Oriented, Cooperative, No Acute Distress Lungs: Reports: Clear to Auscultation, Normal Respiratory Effort Cardiovascular: Reports: Regular Rate, Regular Rhythm, No Murmurs GI/Abdominal Exam: Soft, Non-Tender, No Organomegaly, No Distention Extremities: Non-Tender, No Pedal Edema
[2020-12-23] MEDS ORDERED: Mirtazapine 15 MG Tab PO SCH (21:00)
[2020-12-23] MEDS ORDERED: Aspirin 81 MG Tab.EC PO SCH (21:00)
== END 2020-12-23 13:20 | disposition home or self-care (01) ==
LOC: JP.ED 11:51 → JP.MS 18:59
PROVIDERS: ADMIT Hospitalist; ATTEND Hospitalist
DX: H81.10 Benign paroxysmal vertigo, unspecified ear (principal); I12.9 Hypertensive chronic kidney disease with stage 1 through stage 4 chronic kidney disease, or unspecified chronic kidney disease; N18.30 Chronic kidney disease, stage 3 unspecified; E66.9 Obesity, unspecified; E86.0 Dehydration; Z20.822 Contact with and (suspected) exposure to COVID-19; Z88.8 Allergy status to other drugs, medicaments and biological substances; Z88.5 Allergy status to narcotic agent; Z90.49 Acquired absence of other specified parts of digestive tract; Z79.82 Long term (current) use of aspirin; Z79.899 Other long term (current) drug therapy
CPT/HCPCS: 0241U; 36415; 80048; 85018; 85025; 96374; 96376; 99285-25; A9270-GY; G0378; J1650; J2060; J7030

== ENCOUNTER 2021-12-27 12:10 | Emergency (ER) | payer MEDICARE, BC ==
[2021-12-27] MEDS ORDERED: Sodium Chloride 0.9% 10 ML Syringe FLUSH PRN (12:14)
[2021-12-27] MEDS: Sodium Chloride 0.9% 500 ML IV ONE ×2 (14:41→16:31)
[2021-12-27] MEDS ORDERED: Sodium Chloride 0.9% 500 ML IV ONE (16:06)
[2021-12-27 17:07] VITALS: BP 144/67; PULSE 64
== END 2021-12-27 18:27 | disposition home or self-care (01) ==
LOC: JP.ED 12:10
DX: R53.1 Weakness (principal); E86.0 Dehydration; I12.9 Hypertensive chronic kidney disease with stage 1 through stage 4 chronic kidney disease, or unspecified chronic kidney disease; N18.9 Chronic kidney disease, unspecified; E66.9 Obesity, unspecified; Z68.35 Body mass index [BMI] 35.0-35.9, adult; Z88.1 Allergy status to other antibiotic agents; Z88.5 Allergy status to narcotic agent; Z88.8 Allergy status to other drugs, medicaments and biological substances; Z86.73 Personal history of transient ischemic attack (TIA), and cerebral infarction without residual deficits; Z79.82 Long term (current) use of aspirin; Z79.899 Other long term (current) drug therapy; Z20.822 Contact with and (suspected) exposure to COVID-19
CPT/HCPCS: 36415; 80048; 81001; 83735; 85025; 87086; 96360; 99284; J3490; J7040; U0002

== ENCOUNTER 2022-03-13 05:54 | Emergency (ER) | payer MEDICARE, BC ==
[2022-03-13 06:34] LABS: ESTIMATED GFR 38 mL/min (>60)
[2022-03-13 08:03] VITALS: BP 147/94; PULSE 53
== END 2022-03-13 08:15 | disposition home or self-care (01) ==
LOC: JP.ED 05:54
DX: U07.1 COVID-19 (principal); F41.0 Panic disorder [episodic paroxysmal anxiety]; I12.9 Hypertensive chronic kidney disease with stage 1 through stage 4 chronic kidney disease, or unspecified chronic kidney disease; N18.30 Chronic kidney disease, stage 3 unspecified; E66.9 Obesity, unspecified; Z68.37 Body mass index [BMI] 37.0-37.9, adult; Z88.1 Allergy status to other antibiotic agents; Z88.8 Allergy status to other drugs, medicaments and biological substances; Z88.5 Allergy status to narcotic agent; Z79.82 Long term (current) use of aspirin; Z79.899 Other long term (current) drug therapy
CPT/HCPCS: 36415; 71045; 71045-26; 80053; 85025; 85379; 86140; 99283; 99285

== ENCOUNTER 2022-05-20 13:06 | Emergency (ER) | payer MEDICARE, BC ==
[2022-05-20] MEDS ORDERED: Sodium Chloride 0.9% 10 ML Syringe FLUSH PRN (14:05)
[2022-05-20] MEDS ORDERED: Sodium Chloride 0.9% 1,000 ML IV SCH (14:15)
[2022-05-20 14:37] LABS: ESTIMATED GFR 45 mL/min (>60)
[2022-05-20 15:24] LABS: CORONAVIRUS COVID-19 NAA POSITIVE (NEGATIVE)
[2022-05-20 17:58] VITALS: BP 131/57; PULSE 61
== END 2022-05-20 18:15 | disposition home or self-care (01) ==
LOC: JP.ED 13:06
DX: U07.1 COVID-19 (principal); I12.9 Hypertensive chronic kidney disease with stage 1 through stage 4 chronic kidney disease, or unspecified chronic kidney disease; N18.30 Chronic kidney disease, stage 3 unspecified; E66.9 Obesity, unspecified; Z68.35 Body mass index [BMI] 35.0-35.9, adult; Z88.1 Allergy status to other antibiotic agents; Z88.5 Allergy status to narcotic agent; Z88.8 Allergy status to other drugs, medicaments and biological substances; Z79.82 Long term (current) use of aspirin; Z79.899 Other long term (current) drug therapy; Z90.49 Acquired absence of other specified parts of digestive tract; Z90.710 Acquired absence of both cervix and uterus
CPT/HCPCS: 0241U; 36415; 80053; 81001; 83605; 83690; 85025; 96360; 96361; 99283; J3490; J7030

== ENCOUNTER 2022-05-21 15:06 | Emergency (ER) | payer MEDICARE, BC ==
[2022-05-21 15:57] LABS: ESTIMATED GFR 38 mL/min (>60)
[2022-05-21 16:56] VITALS: BP 140/62; PULSE 62
== END 2022-05-21 17:25 | disposition home or self-care (01) ==
LOC: JP.ED 15:06
DX: U07.1 COVID-19 (principal); I12.9 Hypertensive chronic kidney disease with stage 1 through stage 4 chronic kidney disease, or unspecified chronic kidney disease; N18.30 Chronic kidney disease, stage 3 unspecified; E66.9 Obesity, unspecified; Z68.45 Body mass index [BMI] 70 or greater, adult; Z88.1 Allergy status to other antibiotic agents; Z86.16 Personal history of COVID-19; Z86.73 Personal history of transient ischemic attack (TIA), and cerebral infarction without residual deficits; Z88.5 Allergy status to narcotic agent; Z88.6 Allergy status to analgesic agent; Z79.82 Long term (current) use of aspirin; Z79.899 Other long term (current) drug therapy
CPT/HCPCS: 36415; 71045; 71045-26; 80053; 84145; 84484; 85025; 85379; 93005; 93970; 93970-26; 99285

== ENCOUNTER 2023-03-31 15:09 | Emergency (ER) | payer MEDICARE, BC ==
[2023-03-31 16:38] VITALS: BP 140/67; PULSE 59
== END 2023-03-31 16:50 | disposition home or self-care (01) ==
LOC: JP.ED 15:09
DX: S00.83XA Contusion of other part of head, initial encounter (principal); S80.02XA Contusion of left knee, initial encounter; E66.9 Obesity, unspecified; M19.90 Unspecified osteoarthritis, unspecified site; I12.9 Hypertensive chronic kidney disease with stage 1 through stage 4 chronic kidney disease, or unspecified chronic kidney disease; N18.30 Chronic kidney disease, stage 3 unspecified; Z86.73 Personal history of transient ischemic attack (TIA), and cerebral infarction without residual deficits; Z86.16 Personal history of COVID-19; Z79.82 Long term (current) use of aspirin; Z79.899 Other long term (current) drug therapy; Z88.8 Allergy status to other drugs, medicaments and biological substances; Z88.1 Allergy status to other antibiotic agents; Z88.5 Allergy status to narcotic agent
CPT/HCPCS: 70450; 70450-26; 72125; 72125-26; 73562-26-LT; 73562-LT; 76377; 99284

== ENCOUNTER 2023-12-23 10:18 | Inpatient (IN) | payer MEDICARE, BC ==
[2023-12-23 10:38] LABS: BASOPHILS ABSOLUTE AUTO 0.04 K/uL (0.00-0.10); BASOPHILS PERCENT AUTO 0.7 % (0.1-1.3); EOSINOPHILS PERCENT AUTO 1.7 % (0.0-5.4); HEMATOCRIT 36.8 % (34.3-46.0); HEMOGLOBIN 12.1 g/dL (11.2-15.5); IMMATURE GRAN PERCENT AUTO 0.3 % (0.0-0.7); LYMPHOCYTES ABSOLUTE AUTO 1.19 K/uL (0.8-3.3); LYMPHOCYTES PERCENT AUTO 20.3 % (11.4-47.7); MEAN CORPUSCULAR HGB CONC 32.9 g/dL (31.6-35.5); MEAN CORPUSCULAR VOLUME 91.1 fL (81.4-99.0); MONOCYTES ABSOLUTE AUTO 0.52 K/uL (0.20-0.90); MONOCYTES PERCENT AUTO 8.9 % (3.3-12.6); NEUTROPHILS PERCENT AUTO 68.1 % (40.0-78.1); PLATELET COUNT,PLT 203 K/uL (130-375); RED BLOOD CELL COUNT 4.04 M/uL (3.77-5.24); WHITE BLOOD CELL COUNT,WBC 5.9 K/uL (3.2-11.0)
[2023-12-23 10:43] LABS: IMMATURE GRAN ABSOLUTE AUTO 0.02 K/uL (0.00-0.23)
[2023-12-23 10:58] LABS: PROTHROMBIN TIME 10.5 sec (9.2-10.6)
[2023-12-23] MEDS: Sodium Chloride 0.9% 500 ML IV ONE (11:11)
[2023-12-23 11:17] LABS: A/G RATIO 0.9 (1.2-2.2); ALANINE AMINOTRANSFERASE,ALT 20 U/L (12-78); ALBUMIN 3.1 g/dL (3.4-5.0); ALKALINE PHOSPHATASE 87 U/L (46-116); ASPARTATE AMNIOTRANSFERASE,AST 18 U/L (15-37); BILIRUBIN TOTAL 0.4 mg/dL (0.2-1.0); BLOOD UREA NITROGEN,BUN 38 mg/dL (7-18); CALCIUM 9.2 mg/dL (8.5-10.1); CARBON DIOXIDE,CO2 27 mmol/L (21-32); CHLORIDE,CL 103 mmol/L (100-108); CREATININE 1.6 mg/dL (0.6-1.0); EST CRCL DRUG DOSING (CG) 19.75 mL/min; ESTIMATED GFR 32 mL/min (>60); GLUCOSE RANDOM 104 mg/dL (74-106); POTASSIUM,K 4.3 mmol/L (3.6-5.2); PRO B-TYPE NATRIUR PEPT,BNPPRO 371 pg/mL (5-450); PROTEIN TOTAL,TP 6.6 g/dL (6.4-8.2); SODIUM,NA 140 mmol/L (140-148); TROPONIN I HIGH SENSITIVITY 10.1 pg/mL (<=60.3)
[2023-12-23 11:22] LABS: APPEARANCE,URINE CLEAR (CLEAR); BILIRUBIN,URINE NEGATIVE (NEGATIVE); COLOR,URINE YELLOW (YELLOW); GLUCOSE,URINE NEGATIVE (NEGATIVE); KETONES,URINE NEGATIVE (NEGATIVE); LEUKOCYTE ESTERASE,URINE NEGATIVE (NEGATIVE); NITRITE,URINE NEGATIVE (NEGATIVE); OCCULT BLOOD,URINE SMALL (NEGATIVE); PH,URINE 5.5 (5.0-8.0); PROTEIN,URINE NEGATIVE (NEGATIVE); UROBILINOGEN,URINE 0.2 EU/dL (0.2-1.0)
[2023-12-23 11:23] LABS: CORONAVIRUS COVID-19 NAA NEGATIVE (NEGATIVE); INFLUENZA A NAA NEGATIVE (NEGATIVE); INFLUENZA B NAA NEGATIVE (NEGATIVE); RESPIRATORY SYNCYTIAL VIR NAA NEGATIVE (NEGATIVE)
[2023-12-23 11:29] LABS: AMORPHOUS SEDIMENT,URINE NOT SEEN; BACTERIA,URINE NOT SEEN; EPITHELIAL CELLS,URINE FEW; MUCUS,URINE NOT SEEN; RBC,URINE 0-5 (0-5); WBC,URINE 0-5 (0-5)
[2023-12-23] MEDS ORDERED: Ondansetron 4 MG Tab.DIS PO PRN (15:00)
[2023-12-23] MEDS ORDERED: Magnesium Hydroxide 400 MG/5 ML Susp 30 ML Cup PO PRN (15:00)
[2023-12-23] MEDS ORDERED: Albuterol 0.083% 2.5 MG/3 ML Neb Soln NEB PRN (15:00)
[2023-12-23] MEDS ORDERED: LORazepam 2 MG/ML SDV IVPUSH PRN (15:00)
[2023-12-23] MEDS ORDERED: Ondansetron 4 MG/2 ML SDV IV PRN (15:00)
[2023-12-23] MEDS ORDERED: Sennosides/Docusate Sodium 50-8.6 MG Tab PO PRN (15:00)
[2023-12-23] MEDS ORDERED: Acetaminophen 325 MG Tab PO PRN (15:00)
[2023-12-23] MEDS: Enoxaparin 40 MG/0.4 ML Syringe SUBCUT SCH (16:39)
[2023-12-23] MEDS: Bumetanide 1 MG/4 ML MDV IVPUSH SCH (16:39)
[2023-12-23] MEDS: Aspirin 81 MG Tab.EC PO SCH (20:59)
[2023-12-23] MEDS: Mirtazapine 15 MG Tab PO SCH (20:59)
[2023-12-23] MEDS: Metoprolol Tartrate 50 MG Tab PO SCH (20:59)
[2023-12-24] MEDS: Sodium Chloride 0.9% 1,000 ML IV SCH (01:17)
[2023-12-24 05:59] LABS: HEMATOCRIT 34.2 % (34.3-46.0); HEMOGLOBIN 11.3 g/dL (11.2-15.5); MEAN CORPUSCULAR HEMOGLOBIN 29.9 pg (31.6-35.5); MEAN CORPUSCULAR VOLUME 90.5 fL (81.4-99.0); RED BLOOD CELL COUNT 3.78 M/uL (3.77-5.24); WHITE BLOOD CELL COUNT,WBC 5.2 K/uL (3.2-11.0)
[2023-12-24 06:33] LABS: A/G RATIO 0.9 (1.2-2.2); ALANINE AMINOTRANSFERASE,ALT 20 U/L (12-78); ALKALINE PHOSPHATASE 83 U/L (46-116); ANION GAP 9.1 mmol/L (5.0-14.0); ASPARTATE AMNIOTRANSFERASE,AST 21 U/L (15-37); BILIRUBIN TOTAL 0.4 mg/dL (0.2-1.0); BLOOD UREA NITROGEN,BUN 26 mg/dL (7-18); CALCIUM 8.6 mg/dL (8.5-10.1); CARBON DIOXIDE,CO2 26 mmol/L (21-32); CHLORIDE,CL 106 mmol/L (100-108); CREATININE 1.3 mg/dL (0.6-1.0); EST CRCL DRUG DOSING (CG) 24.31 mL/min; ESTIMATED GFR 41 mL/min (>60); GLUCOSE RANDOM 85 mg/dL (74-106); POTASSIUM,K 4.4 mmol/L (3.6-5.2); PROTEIN TOTAL,TP 6.2 g/dL (6.4-8.2); SODIUM,NA 141 mmol/L (140-148); TROPONIN I HIGH SENSITIVITY 8.5 pg/mL (<=60.3)
[2023-12-24] MEDS: Multivitamins with Iron/Calcium/Folic Acid/Minerals Tab PO SCH (09:03)
[2023-12-24] MEDS: Calcium Carbonate/Vitamin D3 1500 MG-400 Units Tab PO SCH (09:03)
[2023-12-24] MEDS: Folic Acid 1 MG Tab PO SCH (09:03)
[2023-12-24] MEDS ORDERED: Bumetanide 2.5 MG/10 ML MDV IVPUSH SCH (10:15)
[2023-12-24] MEDS: Enoxaparin 80 MG/0.8 ML Syringe SUBCUT SCH (10:52)
[2023-12-24] MEDS: Bumetanide 1 MG/4 ML MDV IVPUSH SCH (10:53)
[2023-12-24] MEDS: Iopamidol 755 Mg/ML 100 ML Bottle IV ONE (16:02)
[2023-12-24] MEDS: Sodium Chloride 0.9% 60 ML IV SCH (16:02)
[2023-12-24] MEDS: Sodium Chloride 0.9% 10 ML Syringe IV PRN (16:03)
[2023-12-25 05:33] LABS: HEMATOCRIT 35.7 % (34.3-46.0); MEAN CORPUSCULAR HEMOGLOBIN 29.9 pg (31.6-35.5); MEAN CORPUSCULAR HGB CONC 33.6 g/dL (31.6-35.5); RED BLOOD CELL COUNT 4.01 M/uL (3.77-5.24); WHITE BLOOD CELL COUNT,WBC 6.8 K/uL (3.2-11.0)
[2023-12-25 06:05] LABS: CALCIUM 9.1 mg/dL (8.5-10.1); CREATININE 1.6 mg/dL (0.6-1.0); EST CRCL DRUG DOSING (CG) 19.75 mL/min; POTASSIUM,K 4.3 mmol/L (3.6-5.2)
[2023-12-25 06:10] LABS: ANION GAP 11.3 mmol/L (5.0-14.0)
[2023-12-25 10:29] VITALS: BP 114/51; PULSE 55
== END 2023-12-25 11:07 | disposition home or self-care (01) | DRG 313 ==
LOC: JP.ED 10:18 → JP.MS 14:27 → OBSVTOIN 12-25 08:38
PROVIDERS: ADMIT Hospitalist; ATTEND Hospitalist
DX: R07.89 Other chest pain (principal); N17.9 Acute kidney failure, unspecified; R60.0 Localized edema; R06.89 Other abnormalities of breathing; I12.9 Hypertensive chronic kidney disease with stage 1 through stage 4 chronic kidney disease, or unspecified chronic kidney disease; N18.32 Chronic kidney disease, stage 3b; E86.0 Dehydration; M19.90 Unspecified osteoarthritis, unspecified site; G43.909 Migraine, unspecified, not intractable, without status migrainosus; E66.9 Obesity, unspecified; Z88.0 Allergy status to penicillin; Z88.5 Allergy status to narcotic agent; H54.7 Unspecified visual loss; Z88.8 Allergy status to other drugs, medicaments and biological substances; Z88.1 Allergy status to other antibiotic agents; Z79.82 Long term (current) use of aspirin; Z79.899 Other long term (current) drug therapy; Z86.73 Personal history of transient ischemic attack (TIA), and cerebral infarction without residual deficits; Z68.36 Body mass index [BMI] 36.0-36.9, adult; Z86.16 Personal history of COVID-19; Z90.49 Acquired absence of other specified parts of digestive tract; Z90.710 Acquired absence of both cervix and uterus; Z98.890 Other specified postprocedural states
CPT/HCPCS: 0241U; 36415; 71045; 71275; 78582; 80048; 80053; 81001; 83605; 83880; 84145; 84484; 85025; 85027; 85379; 85610; 93005; 93010; 93970; 96374; 96376; 97161; 97165; 99223; 99232; 99239; 99285; A9270-GY; A9539; A9540; G0378; J1650; J3490; J7030; Q9967

== ENCOUNTER 2024-07-12 15:52 | Emergency (ER) | payer MEDICARE, BC ==
[2024-07-12 15:59] VITALS: BP 150/68; PULSE 75
[2024-07-12] MEDS: Sodium Chloride 0.9% 1,000 ML IV SCH (16:22)
[2024-07-12] MEDS: Sodium Chloride 0.9% 10 ML Syringe FLUSH PRN (16:22)
[2024-07-12 16:33] LABS: BASOPHILS ABSOLUTE AUTO 0.04 K/uL (0.00-0.10); BASOPHILS PERCENT AUTO 0.6 % (0.1-1.3); EOSINOPHILS ABSOLUTE AUTO 0.06 K/uL (0.00-0.40); EOSINOPHILS PERCENT AUTO 0.9 % (0.0-5.4); HEMATOCRIT 37.1 % (34.3-46.0); HEMOGLOBIN 12.2 g/dL (11.2-15.5); IMMATURE GRAN ABSOLUTE AUTO 0.03 K/uL (0.00-0.23); IMMATURE GRAN PERCENT AUTO 0.4 % (0.0-0.7); LYMPHOCYTES ABSOLUTE AUTO 1.13 K/uL (0.8-3.3); LYMPHOCYTES PERCENT AUTO 16.8 % (11.4-47.7); MEAN CORPUSCULAR HGB CONC 32.9 g/dL (31.6-35.5); MEAN CORPUSCULAR VOLUME 91.4 fL (81.4-99.0); MONOCYTES ABSOLUTE AUTO 0.62 K/uL (0.20-0.90); MONOCYTES PERCENT AUTO 9.2 % (3.3-12.6); NEUTROPHILS ABSOLUTE AUTO 4.84 K/uL (1.0-7.6); NEUTROPHILS PERCENT AUTO 72.1 % (40.0-78.1); PLATELET COUNT,PLT 213 K/uL (130-375); RED BLOOD CELL COUNT 4.06 M/uL (3.77-5.24); WHITE BLOOD CELL COUNT,WBC 6.7 K/uL (3.2-11.0)
[2024-07-12 16:59] LABS: ALANINE AMINOTRANSFERASE,ALT 19 U/L (12-78); ALBUMIN 3.4 g/dL (3.4-5.0); ALKALINE PHOSPHATASE 86 U/L (46-116); ANION GAP 11.3 mmol/L (5.0-14.0); ASPARTATE AMNIOTRANSFERASE,AST 22 U/L (15-37); BILIRUBIN TOTAL 0.3 mg/dL (0.2-1.0); BLOOD UREA NITROGEN,BUN 31 mg/dL (7-18); CALCIUM 9.3 mg/dL (8.5-10.1); CARBON DIOXIDE,CO2 26 mmol/L (21-32); CHLORIDE,CL 99 mmol/L (100-108); CREATININE 1.3 mg/dL (0.6-1.0); EST CRCL DRUG DOSING (CG) 25.48 mL/min; ESTIMATED GFR 41 mL/min (>60); GLUCOSE RANDOM 91 mg/dL (74-106); POTASSIUM,K 4.3 mmol/L (3.6-5.2); PROTEIN TOTAL,TP 6.7 g/dL (6.4-8.2); SODIUM,NA 132 mmol/L (140-148); TROPONIN I HIGH SENSITIVITY 11.9 pg/mL (<=60.3)
[2024-07-12 17:37] LABS: APPEARANCE,URINE SLIGHTLY CLOUDY (CLEAR); BILIRUBIN,URINE NEGATIVE (NEGATIVE); COLOR,URINE YELLOW (YELLOW); GLUCOSE,URINE NEGATIVE (NEGATIVE); KETONES,URINE NEGATIVE (NEGATIVE); LEUKOCYTE ESTERASE,URINE SMALL (NEGATIVE); NITRITE,URINE NEGATIVE (NEGATIVE); OCCULT BLOOD,URINE SMALL (NEGATIVE); PROTEIN,URINE NEGATIVE (NEGATIVE); UROBILINOGEN,URINE 0.2 EU/dL (0.2-1.0)
[2024-07-12 17:48] LABS: AMORPHOUS SEDIMENT,URINE NOT SEEN; BACTERIA,URINE MANY; EPITHELIAL CELLS,URINE FEW; MUCUS,URINE NOT SEEN; RBC,URINE 0-5 (0-5); WBC,URINE 0-5 (0-5)
[2024-07-12 18:37] LABS: LYME AB IgG Negative (Negative); LYME AB IgM Negative (Negative)
== END 2024-07-12 19:35 | disposition home or self-care (01) ==
LOC: JP.ED 15:52
DX: R53.1 Weakness (principal); I11.0 Hypertensive heart disease with heart failure; I50.9 Heart failure, unspecified; E66.9 Obesity, unspecified; Z68.32 Body mass index [BMI] 32.0-32.9, adult; Z90.49 Acquired absence of other specified parts of digestive tract; Z90.710 Acquired absence of both cervix and uterus; Z79.899 Other long term (current) drug therapy; Z79.82 Long term (current) use of aspirin; Z88.1 Allergy status to other antibiotic agents; Z88.5 Allergy status to narcotic agent; Z88.8 Allergy status to other drugs, medicaments and biological substances
CPT/HCPCS: 36415; 80053; 81001; 83605; 83735; 84484; 85025; 86618; 87086; 96360; 96361; 99285; J7030; U0002